=== PATIENT | female | born 1960 | race Caucasian/White ===

== ENCOUNTER 2021-07-06 08:12 | Inpatient (IN) | payer MEDICAID, SELFPAY ==
--- NOTE | 2021-07-06 | ECG_ITS ---
Test Reason : dyspnea Blood Pressure : / mmHG Vent. Rate : 158 BPM Atrial Rate : 000 BPM P-R Int : 000 ms QRS Dur : 084 ms QT Int : 288 ms P-R-T Axes : 000 097 075 degrees QTc Int : 467 ms Artifact in tracing Atrial fibrillation with rapid ventricular response Rightward axis cannot exclude old anterior infarct, but could be from body habitus and lead placement Abnormal ECG No previous ECGs available Referred By: Generic ED Physician Electronically Signed By:EDELMIRA SCOTT
--- NOTE | ~2021-07-06 | US_ITS ---
EXAMINATION: ULTRASOUND ARTERIAL DUPLEX LOWER EXTREMITY BILATERAL CLINICAL INFORMATION: Right foot cyanosis and decreased pulses. COMPARISON: None TECHNIQUE: Multiple 2-D grayscale and duplex Doppler ultrasound images of the arteries of the bilateral lower extremities were obtained. FINDINGS: Normal arterial waveforms with triphasic morphology without blunting is seen bilaterally. Peak systolic arterial velocities are as follows in centimeters per second: Common femoral: Right 62. Left 78. Profunda femoral: Right 39. Left 52. Proximal superficial femoral: Right 57. Left 78. Mid superficial femoral: Right 49. Left 56. Distal superficial femoral: Right 52. Left 75. Popliteal: Right 52. Left 1. Proximal posterior tibial: 79. Left 38. Mid posterior tibial: Right 80. Left 40. Distal posterior tibial: Right 69. Left 51. Peroneal: Right 59. Left 66. Scattered mild echogenic atherosclerotic plaque is seen bilaterally, more pronounced distally. Mild subcutaneous edema seen in the calves bilaterally. No popliteal cyst bilaterally. US/US arterial duplex LE BI IMPRESSION: No hemodynamically significant arterial stenosis bilaterally. Mildly asymmetric diminished arterial velocities in the left popliteal and posterior tibial arteries suggestive of mild stenosis in these arterial segments. This does not correlate with right-sided findings.
--- NOTE | ~2021-07-06 | US_ITS ---
EXAMINATION: US VENOUS ULTRASOUND WITH DOPPLER LOWER EXTREMITY, BILATERAL CLINICAL INFORMATION: Bilateral leg edema. COMPARISON: None TECHNIQUE: Ultrasound of the deep veins is performed from the hip to the calf with compression sonography and color and pulse Doppler assessment. Spectral analysis with color-flow imaging is performed. FINDINGS: RIGHT: There is normal venous compression and respiratory variation and augmented flow. The visualized common femoral vein, superficial femoral vein, profunda femoral vein, popliteal vein, and the trifurcation region shows no evidence of deep venous thrombosis. There is no significant popliteal fossa cyst. LEFT: There is normal venous compression and respiratory variation and augmented flow. The visualized common femoral vein, superficial femoral vein, profunda femoral vein, popliteal vein, and the trifurcation region shows no evidence of deep venous thrombosis. There is no significant popliteal fossa cyst. If the patient's symptoms persist, followup ultrasound in 5 days 7 days might be of value to exclude proximal propagation from a non-visualized calf vein. US/US venous duplex LE BI IMPRESSION: No DVT demonstrated in the bilateral lower extremity.
--- NOTE | ~2021-07-06 | CT_ITS ---
EXAMINATION: CT ANGIOGRAM OF THE CHEST WITH AND WITHOUT CONTRAST (CT PULMONARY ANGIOGRAM FOR PE) CLINICAL INFORMATION: Reason for Exam sob/le edema ? pe COMPARISON: None TECHNIQUE: Prior to contrast administration, noncontrast localization images were obtained. Subsequently, multidetector volumetric imaging was performed from the thoracic inlet to below the diaphragms following the administration of 65 mL Omnipaque 350 intravenous contrast. No contrast reaction reported Sagittal, coronal, and MIP oblique sagittal reformatted images were obtained on the CT workstation, uploaded to PACS, and reviewed. This CT examination was performed using dose optimization techniques as appropriate, variously including the following: *Automated exposure control *Adjustment of mA and/or kV according to patient size (this includes techniques or standardized protocols for targeted exams where dose is matched to indication/reason for exam; i.e. extremities or head) *Use of iterative reconstruction technique Total exam dose-length product 337 mGy-cm FINDINGS: QUALITY OF STUDY/CONTRAST BOLUS: Satisfactory. PULMONARY ARTERIES: No central or segmental pulmonary emboli. THORACIC AORTA: There is no evidence of aneurysm. LUNG: Lungs are expanded with mild compressive dependent lungs from pleural effusion. Mild platelike atelectatic changes right upper lobe and right middle lobe. PLEURA: There is moderate bilateral pleural effusions minimally larger on the right.. MEDIASTINUM: Normal heart size. No pericardial effusion. No hilar or mediastinal lymphadenopathy. No evidence of septal bowing or right heart strain. CHEST WALL/AXILLA: No axillary or internal mammary lymphadenopathy. OSSEOUS STRUCTURES: No lytic or sclerotic process seen. There is moderate ventral spondylosis and degenerative disc changes throughout dorsal spine. UPPER ABDOMEN: Visualized liver, spleen, pancreas and bilateral adrenal glands are unremarkable. No reflux of contrast into the hepatic veins to suggest elevated right heart pressures. CT/CT angio chest PE protocol IMPRESSION: No evidence of PE. There is no evidence of aneurysm. Moderate bilateral pleural effusions with dependent bibasilar atelectasis. Also visualized is right upper lobe and right middle lobe platelike atelectasis. VTE: negative
--- NOTE | ~2021-07-06 | XR_ITS ---
EXAMINATION: XR CHEST CLINICAL INFORMATION: Shortness of breath, lower extremity edema. COMPARISON: None TECHNIQUE: Frontal view of the chest was obtained. FINDINGS: There is mild prominence of the pulmonary vascular and cardiac silhouette. The mediastinal structures are unremarkable. Severe right glenohumeral degenerative joint changes are noted. XR/XR chest 1V IMPRESSION: Mild CHF.
[2021-07-06 08:13] VITALS: BP 182/130; PULSE 80; RESP 22; TEMP 36; O2SAT 97; BMI 30.6
[2021-07-06 09:18] LABS: MANUAL DIFF FLAG NO
[2021-07-06] MEDS: dilTIAZem HCL 50 MG/10 ML VIAL IVPUSH ×2 (09:22→09:30)
[2021-07-06 09:24] LABS: Basophils Percent Auto 0.4 % (0-2); Eosinophils Percent Auto 0.3 % (0-4); Hematocrit 38.2 % (37.0-47.0); Hemoglobin 11.6 g/dl (12.0-16.0); Imm Gran Abs Auto 0.03 X10*3/uL (0.00-0.03); Imm Gran Pct Auto 0.3 % (0.0-0.4); Lymphocytes Absolute Auto 2.2 X10*3/uL (1.2-4.9); Lymphocytes Percent Auto 21.3 % (20-40); Mean Corpuscular HGB Conc 30.4 g/dl (31.0-35.0); Mean Corpuscular Hemoglobin 26.9 pg (27.0-33.0); Mean Corpuscular Volume 88.4 fL (80.0-98.0); Mean Platelet Volume 9.7 fL (9.4-12.3); Monocytes Absolute Auto 0.7 X10*3/uL (0.1-1.2); Monocytes Percent Auto 6.9 % (2-11); Neutrophils Absolute Auto 7.4 x10*3/uL (2.0-8.3); Neutrophils Percent Auto 70.8 % (45-73); Platelet Count 458 X10*3/uL (160-400); Red Blood Count 4.32 X10*6/uL (4.20-5.50); Red Cell Distribution Width 16.3 % (11.0-16.0); White Blood Count 10.4 X10*3/uL (4.8-10.8)
[2021-07-06 09:29] LABS: INTERNATIONAL NORM RATIO 1.4 (0.9-1.1); Prothrombin Time 16.1 SEC (9.9-13.0)
[2021-07-06 09:31] LABS: Partial Thromboplastin Time 31.2 SEC (24.1-38.0)
[2021-07-06 09:55] LABS: B Type Natriuretic Peptide 676 pg/mL (<100); Troponin-I High Sensitivity 29.6 ng/L (<3.5-17.0)
[2021-07-06 09:58] LABS: Alanine Aminotransferase 28 U/L (0-31); Albumin Level 3.4 g/dL (3.5-5.0); Alkaline Phosphatase 98 U/L (39-117); Anion Gap 17 (12-20); Aspartate Amino Transferase 29 U/L (5-31); Bilirubin Total 0.9 mg/dL (0.0-1.0); Blood Urea Nitrogen 15 mg/dL (9-16); Calcium 9.3 mg/dL (8.4-10.2); Carbon Dioxide 21 mmol/L (22-29); Chloride 105 mmol/L (96-108); Creatinine Clr Calc Pharmacy 95.4; Estimated Glomerular Filt Rate > 60; Glucose Random 131 mg/dL (60-115); Magnesium 1.8 mg/dL (1.6-2.6); Potassium 4.9 mmol/L (3.3-5.1); Sodium 138 mmol/L (135-145); Total Protein 6.9 g/dL (6.5-8.0)
[2021-07-06] MEDS: dilTIAZem HCL 125 MG in 0.9 % Sodium Chloride 100 ML 10 MG IVCONT ×2 (10:38→23:54)
[2021-07-06 10:39] VITALS: BP 136/96; PULSE 145; RESP 22; O2SAT 94
--- NOTE | 2021-07-06 11:07 | ED.SOB ---
HPI - SOB/Dyspnea General Chief Complaint: Dyspnea Stated Complaint: sob Time Seen by Provider: 07/06/21 08:51 Source: patient Mode of arrival: ambulatory Limitations: no limitations History of Present Illness HPI Narrative: 60-year-old female with a past medical history of hypertension and bilateral hip replacement done years ago presenting to the ED with complaints of shortness of breath with intermittent dry cough and pain on inspiration for the past 2 weeks with associated lower extremity edema/swelling. And then this morning when she went to call her toenail she noticed that the told on her right foot were bluish in color. She reports that she recently traveled to [place] and drove for approximately 6-8 hours in a 48 hour span to visit her brother who is actively dying of a cancer although she is unsure what type of cancer. She denies any fevers, chills, dizziness, headaches, neck pain/stiffness, trouble swallowing or breathing, chest pain, palpitations, paresthesias, nausea/vomiting/diarrhea constipation, abdominal pain, back pain, black or bloody stools, calf tenderness, sick contacts or any other symptoms complaints or concerns at this time. She is unsure if she has had any weight gain. MD elicited complaint: shortness of breath, cough and pain with inspiration Onset (ago): week(s) (2) Context: recent travel Timing: constant and progressively worsening Severity: moderate Exacerbating factors: lying flat, exertion, movement, coughing, inspiration, talking and deep breaths Relieving factors: nothing Known history of: other (Hypertension) Associated symptoms: pain with inspiration, cough and lower extremity pain Treatment prior to arrival: none Related Data Home oxygen amount: none Home Medications Medication Instructions Recorded Confirmed No Known Home Meds 07/06/21 07/06/21 Allergies Allergy/AdvReac Type Severity Reaction Status Date / Time No Known Allergies Allergy Verified 07/06/21 08:24 Review of Systems Review of Systems: Constitutional : No Weight loss, No Fever, No Chills, No Night Sweats, No Fatigue, No Malaise ENT/Mouth : No Hearing loss, No Ear Pain, No Nasal Congestion, No Sinus Pain, No Hoarseness, No sore throat, No Rhinorrhea, No Swallowing Difficulty Eyes: No Eye Pain, No Swelling, No Redness, No Foreign Body, No Discharge, No Vision Changes Cardiovascular : + shortness of breath/dyspnea on exertion/orthopnea and lower extremity edema cough, no upper extremity edema, No Chest Pain, No Palpitations Respiratory : + Cough, + dyspnea, No Sputum, No Wheezing, No Smoke Exposure Gastrointestinal : No Nausea, No Vomiting, No Diarrhea, No Constipation, No abdominal Pain, No Hematochezia, No Melena Genitourinary : no irregular bleeding, No Dysuria, No Urinary Frequency, No Hematuria, No Urinary Incontinence, No Urgency, No Flank Pain, No Urinary Flow Changes, No Hesitancy Musculoskeletal : No joint pain, No Myalgias, No Joint Swelling Skin : No Skin Lesions, No rash Neuro : No Weakness, No Numbness, No Paresthesias, No Loss of Consciousness, No Dizziness, No Headache Psych : No Anxiety/Panic, No Depression, No SI/HI/AH/VH, No Social Issues, Heme/Lymph: No Bruising, No Bleeding,No Lymphadenopathy Endocrine : No Polyuria, No Polydipsia, No Temperature Intolerance Yes all other systems are reviewed and are negative [facility] Past Medical History Attestation statement: The following information was validated with the patient. Medical History CHF exacerbation HTN (hypertension) Family History Family History Brother Cancer Father CAD (coronary artery disease) Social History Social History Alcohol intake: current Patient Tobacco Use Status: Current everyday Tobacco user Use of substances other than those prescribed or required for medical reasons: No Advance Directives: Yes Advance Directives Information Provided: No Advance Directives on File: No Patient : No Physical Exam Vital Signs: Vital Signs: Last Vital Signs Temp 97.6 F 07/06/21 15:03 Pulse 87 07/06/21 15:03 Resp 20 07/06/21 15:03 BP 133/87 07/06/21 15:03 Pulse Ox 96 07/06/21 15:03 BMI result Body Mass Index 30.6 vital signs have been reviewed as normal and appeared to be correct. Blood pressure 182/130. Heart rate normal. Respiration rate 22. Temperature normal. Oxygen saturation normal. Appearance: Alert. Oriented X3. No acute distress. Head: Normal external exam. Normocephalic. Atraumatic. Eyes: PERRLA. EOMI. Conjunctiva and sclera normal. Eyelids normal. ENT: EAC normal. TM's Normal. Pharynx normal. Uvula midline. Moist mucous membranes. No lesions/ulcerations or masses noted on the tongue. Normal voice. No trismus noted. No drooling noted. No muffled voice noted. Neck: Normal inspection. Neck supple. FROM. No adenopathy. Thyroid Normal. No tracheal deviation noted. No crepitus is noted. No meningeal signs. No neck mass noted. No signs of trauma noted. CVS: Irregular rate and rhythm consistent with atrial fibrillation. No murmur/rales/gallops noted. Otherwise heart sounds are normal. Respiratory: No acute respiratory distress. Mild decreased breath sounds and patient reports pain on inspiration. No wheezes/rales/rhonchi noted. Chest nontender. No crepitus is noted. No signs of trauma noted. No accessory muscle usage noted or decreased air movement noted. Abdomen: Soft and nontender. Bowel sounds normal in all 4 quadrants. No distention noted. No organomegaly noted. No visible injury noted. Back: No CVA tenderness. Full range of motion noted. Nontender. No signs of trauma. Patient neuro intact bilaterally and distally on all 4 extremities. Patient's reflexes intact bilaterally and distally on all 4 extremities. No rashes/lesion/induration/fluctuance or signs of infection noted. Skin: Skin warm and dry. Normal skin color. Normal skin turgor. No rashes/lesions/lacerations noted. Extremities: + lower extremity edema bilaterally. No calf tenderness is noted bilaterally. Extremities exhibit normal range of motion and nontender. Neuro: Oriented X 3. No motor deficit. No sensory deficit. Reflexes normal. Normal steady gait. No focal neuro deficits noted. CN's II-XII intact bilaterally? Vascular: + radial pulses/+ 2 dorsalis pedis pulses to left lower extremity although decreased on the right lower extremity. +2 posterior tibial and peroneal bilaterally to left lower extremity/right lower extremity. Patient noted to have decreased capillary refill to the right foot 4th and 5th toes. Normal capillary refill toe all other toes. Right foot feels cold with cyanosis noted to the right foot at the 4th and 5th toes picture below. Normal capillary refill to left foot toes and no cyanosis noted to left foot toes Right foot Left Foot Course Course Course Narrative: 9am - 60-year-old female with a past medical history of hypertension and bilateral hip replacement done years ago presenting to the ED with complaints of shortness of breath with intermittent dry cough and pain on inspiration for the past 2 weeks with associated lower extremity edema/swelling. And then this morning when she went to call her toenail she noticed that the told on her right foot were bluish in color. She reports that she recently traveled to [place] and drove for approximately 6-8 hours in a 48 hour span to visit her brother who is actively dying of a cancer although she is unsure what type of cancer. Patient had an EKG in the waiting room which revealed rapid atrial fibrillation therefore she was brought to a room. Plan: Labs, chest x-ray, venous duplex ultrasound of bilateral lower extremity, arterial duplex ultrasound of bilateral lower extremity, CTA of chest for PE, COVID swab. Provide the patient 5 mg of diltiazem for her rapid atrial fibrillation and if this is not put her back into sinus rhythm will place her on a diltiazem drip. Will re-evaluate. Reevaluation(s) Reevaluation #1: - labs reviewed and patient is carbon dioxide 21. Random glucose 131. Troponin 29.6. BNP 676. Albumin 3.4. Otherwise all other labs are within normal limits - venous duplex ultrasound of bilateral lower extremity negative for DVT. - pending CTA, arterial duplex ultrasound of bilateral lower extremity an [place] swab Time: 11:25 Reevaluation #2: - chest x-ray revealed mild CHF. - patient's heart rate is still rapid in the 150s therefore I am consulting with Dr. Ibanez who recommended 5 mg of metoprolol and repeat in a few minutes as needed will attempt at this time. Time: 11:53 Reevaluation #3: - CTA negative for PE or only revealed pleural effusions with dependent bibasilar atelectasis and platelike atelectasis otherwise no other acute processes. - repeat troponin 36.6- delta. - patient has now received 10 mg of IV metoprolol and rate is in the 110's therefore at this time will admit to Dr. Huber for new onset of AFib/mild CHF patient understands agrees with this plan. Time: 12:25 MDM - SOB/Dyspnea Medical Records Attestation: I reviewed the patient's medical records. Lab Data Attestation: I reviewed the patient's lab results. Result diagrams: 07/06/21 09:13 07/06/21 09:12 Labs: Lab Results 07/06/21 07/06/21 07/06/21 Range/Units 09:12 09:12 09:13 WBC 10.4 (4.8-10.8) X10*3/uL RBC 4.32 (4.20-5.50) X10*6/uL Hgb 11.6 L (12.0-16.0) g/dl Hct 38.2 (37.0-47.0) % MCV 88.4 (80.0-98.0) fL MCH 26.9 L (27.0-33.0) pg MCHC 30.4 L (31.0-35.0) g/dl RDW 16.3 H (11.0-16.0) % Plt Count 458 H (160-400) X10*3/uL MPV 9.7 (9.4-12.3) fL Immature Gran % (Auto) 0.3 (0.0-0.4) % Neut % (Auto) 70.8 (45-73) % Lymph % (Auto) 21.3 (20-40) % [place] % (Auto) 6.9 (2-11) % Eos % (Auto) 0.3 (0-4) % Baso % (Auto) 0.4 (0-2) % Lymph # (Auto) 2.2 (1.2-4.9) X10*3/uL [place] # (Auto) 0.7 (0.1-1.2) X10*3/uL Eos # (Auto) 0.0 (0.0-0.4) X10*3/uL Baso # (Auto) 0.0 (0.0-0.2) X10*3/uL Abs Immat Gran (auto) 0.03 (0.00-0.03) X10*3/uL Absolute Neuts (auto) 7.4 (2.0-8.3) x10*3/uL Absolute Nucleated RBC 0.000 (0.0-0.012) X10*3/uL Nucleated RBC % (auto) 0.0 (0.0-0.2) /100WBC PT (9.9-13.0) SEC INR (0.9-1.1) APTT (24.1-38.0) SEC Sodium 138 (135-145) mmol/L Potassium 4.9 (3.3-5.1) mmol/L Chloride 105 (96-108) mmol/L Carbon Dioxide 21 L (22-29) mmol/L Anion Gap 17 (12-20) BUN 15 (9-16) mg/dL Creatinine 0.77 (0.5-1.4) mg/dL Estim Creat Clear Calc 95.4 Estimated GFR > 60 Random Glucose 131 H (60-115) mg/dL Calcium 9.3 (8.4-10.2) mg/dL Magnesium 1.8 (1.6-2.6) mg/dL Total Bilirubin 0.9 (0.0-1.0) mg/dL AST 29 (5-31) U/L ALT 28 (0-31) U/L Alkaline Phosphatase 98 (39-117) U/L Troponin I High Sens 29.6 H (<3.5-17.0) ng/L B-Natriuretic Peptide 676 H (<100) pg/mL Total Protein 6.9 (6.5-8.0) g/dL Albumin 3.4 L (3.5-5.0) g/dL COVID-19 (JAJA) (Negative) COVID-19 Clin Com 07/06/21 07/06/21 07/06/21 Range/Units 09:13 11:38 11:38 WBC (4.8-10.8) X10*3/uL RBC (4.20-5.50) X10*6/uL Hgb (12.0-16.0) g/dl Hct (37.0-47.0) % MCV (80.0-98.0) fL MCH (27.0-33.0) pg MCHC (31.0-35.0) g/dl RDW (11.0-16.0) % Plt Count (160-400) X10*3/uL MPV (9.4-12.3) fL Immature Gran % (Auto) (0.0-0.4) % Neut % (Auto) (45-73) % Lymph % (Auto) (20-40) % [place] % (Auto) (2-11) % Eos % (Auto) (0-4) % Baso % (Auto) (0-2) % Lymph # (Auto) (1.2-4.9) X10*3/uL [place] # (Auto) (0.1-1.2) X10*3/uL Eos # (Auto) (0.0-0.4) X10*3/uL Baso # (Auto) (0.0-0.2) X10*3/uL Abs Immat Gran (auto) (0.00-0.03) X10*3/uL Absolute Neuts (auto) (2.0-8.3) x10*3/uL Absolute Nucleated RBC (0.0-0.012) X10*3/uL Nucleated RBC % (auto) (0.0-0.2) /100WBC PT 16.1 H (9.9-13.0) SEC INR 1.4 H (0.9-1.1) APTT 31.2 (24.1-38.0) SEC Sodium (135-145) mmol/L Potassium (3.3-5.1) mmol/L Chloride (96-108) mmol/L Carbon Dioxide (22-29) mmol/L Anion Gap (12-20) BUN (9-16) mg/dL Creatinine (0.5-1.4) mg/dL Estim Creat Clear Calc Estimated GFR Random Glucose (60-115) mg/dL Calcium (8.4-10.2) mg/dL Magnesium (1.6-2.6) mg/dL Total Bilirubin (0.0-1.0) mg/dL AST (5-31) U/L ALT (0-31) U/L Alkaline Phosphatase (39-117) U/L Troponin I High Sens 36.6 H (<3.5-17.0) ng/L B-Natriuretic Peptide (<100) pg/mL Total Protein (6.5-8.0) g/dL Albumin (3.5-5.0) g/dL COVID-19 (JAJA) Negative (Negative) COVID-19 Clin Com See Note Imaging Data Venous duplex ultrasound of bilateral lower extremity: Attestation: I personally reviewed and interpreted this imaging study as follows: Radiologist's impression: FINDINGS: RIGHT: There is normal venous compression and respiratory variation and augmented flow. The visualized common femoral vein, superficial femoral vein, profunda femoral vein, popliteal vein, and the trifurcation region shows no evidence of deep venous thrombosis. ? There is no significant popliteal fossa cyst. LEFT: There is normal venous compression and respiratory variation and augmented flow. The visualized common femoral vein, superficial femoral vein, profunda femoral vein, popliteal vein, and the trifurcation region shows no evidence of deep venous thrombosis. ? There is no significant popliteal fossa cyst. If the patient's symptoms persist, followup ultrasound in 5 days 7 days might be of value to exclude proximal propagation from a non-visualized calf vein. US/US venous duplex LE BI IMPRESSION: No DVT demonstrated in the bilateral lower extremity. Arterial duplex ultrasound of bilateral lower extremity: Attestation: I personally reviewed and interpreted this imaging study as follows: Radiologist's impression: FINDINGS: Normal arterial waveforms with triphasic morphology without blunting is seen bilaterally. Peak systolic arterial velocities are as follows in centimeters per second: Common femoral: Right 62. Left 78. Profunda femoral: Right 39. Left 52. Proximal superficial femoral: Right 57. Left 78. Mid superficial femoral: Right 49. Left 56. Distal superficial femoral: Right 52. Left 75. Popliteal: Right 52. Left 1. Proximal posterior tibial: 79. Left 38. Mid posterior tibial: Right 80. Left 40. Distal posterior tibial: Right 69. Left 51. Peroneal: Right 59. Left 66. Scattered mild echogenic atherosclerotic plaque is seen bilaterally, more pronounced distally. Mild subcutaneous edema seen in the calves bilaterally. No popliteal cyst bilaterally. US/US arterial duplex LE BI IMPRESSION: No hemodynamically significant arterial stenosis bilaterally. Mildly asymmetric diminished arterial velocities in the left popliteal and posterior tibial arteries suggestive of mild stenosis in these arterial segments. This does not correlate with right-sided findings.? Chest x-ray: Attestation: I personally reviewed and interpreted this imaging study as follows: Radiologist's impression: FINDINGS: There is mild prominence of the pulmonary vascular and cardiac silhouette. The mediastinal structures are unremarkable. Severe right glenohumeral degenerative joint changes are noted. XR/XR chest 1V IMPRESSION: Mild CHF. CTA of chest for PE: Attestation: I personally reviewed and interpreted this imaging study as follows: Radiologist's impression: FINDINGS: QUALITY OF STUDY/CONTRAST BOLUS: Satisfactory. PULMONARY ARTERIES: No central or segmental pulmonary emboli.? THORACIC AORTA: There is no evidence of aneurysm. LUNG: Lungs are expanded with mild compressive dependent lungs from pleural effusion. Mild platelike atelectatic changes right upper lobe and right middle lobe. PLEURA: There is moderate bilateral pleural effusions minimally larger on the right.. MEDIASTINUM: Normal heart size.? No pericardial effusion.? No hilar or mediastinal lymphadenopathy.? No evidence of septal bowing or right heart strain. CHEST WALL/AXILLA: No axillary or internal mammary lymphadenopathy. OSSEOUS STRUCTURES: No lytic or sclerotic process seen. There is moderate ventral spondylosis and degenerative disc changes throughout dorsal spine.? UPPER ABDOMEN: Visualized liver, spleen, pancreas and bilateral adrenal glands are unremarkable.? No reflux of contrast into the hepatic veins to suggest elevated right heart pressures. CT/CT angio chest PE protocol IMPRESSION: No evidence of PE. ? There is no evidence of aneurysm. ? Moderate bilateral pleural effusions with dependent bibasilar atelectasis. Also visualized is right upper lobe and right middle lobe platelike atelectasis. ? VTE: negative ECG Data Attestation: I personally reviewed and interpreted this ECG as follows: ECG interpretation date: 07/06/21 ECG interpretation time: 08:23 Interpretation: Atrial fibrillation with rapid ventricular response with a right word access with ventricular rate of 158 no acute ischemic changes are noted. No prior EKGs in our system to compare to at this time. Critical Care Time Critical Care Time Critical Care Time: Yes Total Critical Care Time: 60 Attestation: I personally attest to this time spent taking care of the patient Discharge Plan Discharge Clinical Impression: New onset a-fib, Hypertension, Mild congestive heart failure, Bilateral edema of lower extremity, Bilateral pleural effusion Patient Disposition: Admitted As Inpatient
[2021-07-06] MEDS: iohexoL 350 MG/ML 100 ML INFUS..BTL 65 ML IV (11:29)
[2021-07-06 11:59] LABS: COVID-19 Test Negative (Negative)
[2021-07-06] MEDS: Metoprolol Tartrate 5 MG/5 ML VIAL IVPUSH ×2 (12:04→12:20)
[2021-07-06 12:12] LABS: Troponin-I High Sensitivity 36.6 ng/L (<3.5-17.0)
[2021-07-06 12:24] VITALS: BP 115/85; PULSE 102; RESP 22; O2SAT 95
--- NOTE | 2021-07-06 12:36 | PC.NURSE ---
pt continues to deny cp, hr more controlled at this time, diltiazem drip maxed at 15mg/hr, pt further medicated w ordered metoprolol. awaiting inpt bed assignment.
--- NOTE | 2021-07-06 13:17 | P.HPHOSP_ITS ---
History of Present Illness Date of Service: 07/06/21 Chief Complaint: shortness of breath 60F with no significant medical history, does not follow with physicians, Presented with 2 weeks of shortness of breath and lower extremity edema. Prior to this patient states she is in good health, about 2 weeks prior to presentation she started noticing worsening lower extremity edema and shortness of breath worse on exertion with positive orthopnea. Symptoms became gradually worse until night prior to presentation patient was unable to sleep due to shortness of breath. She denies any chest pains or palpitations. She denies fevers, chills. In ED patient found to be in atrial fibrillation with rapid ventricular response, also noted to have elevated BNP, CTA showed no PE but did show bilateral pleural effusions. Review of Systems Review of Systems: Constitutional: Denies fever, denies Chills Eyes: denies blurry vision ENT: denies sore throat CVS: denies chest pain Respiratory: dyspnea GI: no abdominal pain : denies dysuria MSK: denies neck pain Skin: denies rash Neuro: denies specific motor weakness Psych: denies suicidal ideation Endocrine: denies heat/cold intolerance Hematologic: denies easy bleeding Allergy: denies hives [facility] Medical History CHF exacerbation HTN (hypertension) Family History Brother Cancer Father CAD (coronary artery disease) Social History Alcohol intake: current Patient Tobacco Use Status: Current everyday Tobacco user Use of substances other than those prescribed or required for medical reasons: No Advance Directives: Yes Advance Directives Information Provided: No Advance Directives on File: No Patient : No Meds Allergies Allergy/AdvReac Type Severity Reaction Status Date / Time No Known Allergies Allergy Verified 07/06/21 08:24 Active Medications: Current Medications Diltiazem HCl 125 mg/ Sodium (Chloride) 125 mls @ 0 mls/hr IVCONT .Q0M [facility]; Protocol Last Titration: 07/06/21 11:47 Dose: 15 mg/hr, 15 mls/hr Documented by: Pharmacy Consult (Consult Rx Perform Med Rec) 1 each MISCELLANE ONCE PRN PRN Reason: Consult order Physical Exam Vital Signs and Narrative: Vital Signs: Last Vital Signs Temp 96.8 F 07/06/21 08:13 Pulse 102 H 07/06/21 12:24 Resp 22 H 07/06/21 12:24 BP 115/85 07/06/21 12:24 Pulse Ox 95 07/06/21 12:24 BMI result Body Mass Index 30.6 General: dyspneic HEENT: atraumatic Neck: normal to visual inspection CVS: S1, S2, Rapid irregular Resp: bilateral wheezes Chest: non tender GI: soft, non tender, non distended : no CVA tenderness Skin: no rashes Extremities: 3 + bialteral edema Neuro: Oriented X3, grossly intact Psych: cooperative Results Labs CBC and Chem 7: 07/06/21 09:13 07/06/21 09:12 Labs: Laboratory Results - last 24 hr 07/06/21 07/06/21 07/06/21 09:12 09:12 09:13 MCV 88.4 MCH 26.9 L MCHC 30.4 L RDW 16.3 H Plt Count 458 H MPV 9.7 Immature Gran % (Auto) 0.3 Neut % (Auto) 70.8 Lymph % (Auto) 21.3 [place] % (Auto) 6.9 Eos % (Auto) 0.3 Baso % (Auto) 0.4 Lymph # (Auto) 2.2 [place] # (Auto) 0.7 Eos # (Auto) 0.0 Baso # (Auto) 0.0 Abs Immat Gran (auto) 0.03 Absolute Neuts (auto) 7.4 Absolute Nucleated RBC 0.000 Nucleated RBC % (auto) 0.0 PT INR APTT Anion Gap 17 Estim Creat Clear Calc 95.4 Estimated GFR > 60 Random Glucose 131 H Calcium 9.3 Magnesium 1.8 Total Bilirubin 0.9 AST 29 ALT 28 Alkaline Phosphatase 98 Troponin I High Sens 29.6 H B-Natriuretic Peptide 676 H Total Protein 6.9 Albumin 3.4 L COVID-19 (JAJA) COVID-19 Clin Com 07/06/21 07/06/21 07/06/21 09:13 11:38 11:38 MCV MCH MCHC RDW Plt Count MPV Immature Gran % (Auto) Neut % (Auto) Lymph % (Auto) [place] % (Auto) Eos % (Auto) Baso % (Auto) Lymph # (Auto) [place] # (Auto) Eos # (Auto) Baso # (Auto) Abs Immat Gran (auto) Absolute Neuts (auto) Absolute Nucleated RBC Nucleated RBC % (auto) PT 16.1 H INR 1.4 H APTT 31.2 Anion Gap Estim Creat Clear Calc Estimated GFR Random Glucose Calcium Magnesium Total Bilirubin AST ALT Alkaline Phosphatase Troponin I High Sens 36.6 H B-Natriuretic Peptide Total Protein Albumin COVID-19 (JAJA) Negative COVID-19 Clin Com See Note Imaging Radiologist's Impressions: Impressions Duplex Scan Lower Extremity Artery 07/06/21 11:08 IMPRESSION: No hemodynamically significant arterial stenosis bilaterally. Mildly asymmetric diminished arterial velocities in the left popliteal and posterior tibial arteries suggestive of mild stenosis in these arterial segments. This does not correlate with right-sided findings. Venous Duplex 07/06/21 11:08 IMPRESSION: No DVT demonstrated in the bilateral lower extremity. Chest X-Ray 07/06/21 11:30 IMPRESSION: Mild CHF. Chest CTA 07/06/21 11:34 IMPRESSION: No evidence of PE. There is no evidence of aneurysm. Moderate bilateral pleural effusions with dependent bibasilar atelectasis. Also visualized is right upper lobe and right middle lobe platelike atelectasis. VTE: negative Assessment and Plan (1) CHF exacerbation: Status: Acute Plan 60F presented with sob, found to be in new onset afib, chf new onset afib diltiazem infusion, check echo, cardio eval chads appears to be 1, follow up with cardio regarding AC acute chf unspecified iv lasix, echo presumed COPD with acute decompensation prednisone, bronchodilators nicotine dependence nicoderm smoking cessation contious ETOH use about 1 pint of vodka per week, monitor for withdrawal symptoms reported history of HTN no longer on meds monitor dvt prophylaxis - lovenox full code Patient with new onset atrial fibrillation complicated by acute congestive hea rt failure, requiring continues diltiazem infusion and IV diuretics. Patient is at risk for decompensation, therefore, will likely require at least 2 midnights in the hospital. Quality Stroke Does the patient have a stroke diagnosis?: No VTE Prior VTE?: No VTE Risk Level:: Medical - moderate - high VTE Device Contraindication: Treatment Not Indicated VTE Drug Contraindication: N/A - Med Ordered
--- NOTE | 2021-07-06 13:34 | PHA.MEDREC ---
MED REC COMPLETE, PT ON NO MEDICATIONS Pharmacy Consult ? Medication Reconciliation Pharmacy has completed the medication reconciliation.
[2021-07-06] MEDS: Enoxaparin Sodium 40 MG/0.4 ML SYRINGE SUBCUT (14:19)
[2021-07-06] MEDS: Nicotine 21 MG PATCH.TD24 TRANSDERMA (14:19)
[2021-07-06] MEDS: predniSONE 20 MG TABLET 40 MG PO (14:19)
[2021-07-06] MEDS: Furosemide 20 MG/2 ML VIAL IVPUSH (14:20)
[2021-07-06 15:03] VITALS: BP 133/87; PULSE 87; RESP 20; TEMP 36.4; O2SAT 96
[2021-07-06] MEDS: Furosemide 40 MG/4 ML VIAL IVPUSH (18:14)
[2021-07-06 19:14] VITALS: BP 136/80; PULSE 78; RESP 20; TEMP 37; O2SAT 95
[2021-07-06] MEDS: Apixaban 5 MG TABLET PO (19:38)
[2021-07-07] VITALS (10 sets, daily range): BP systolic 114–135; BP diastolic 73–91; PULSE 90–134; RESP 17–21; TEMP 36.3–36.7; O2SAT 93–99
--- NOTE | 2021-07-07 00:09 | PC.NURSE ---
Received care from MONO Bearden at 11:30pm. pt a&o, denies any sob or chest pain at this time. pt reports feeling better at this time. pt on bedside monitor. Heart rate is in 100-130 at this time. Will continue to monitor.
--- NOTE | 2021-07-07 03:34 | PC.NURSE ---
pt is a&o, no sob or chest pain. pt ambulates to bedside commode with no distress. Will continue monitor.
--- NOTE | 2021-07-07 03:42 | PC.NURSE ---
Report given to receiving floor.
[2021-07-07] MEDS: Furosemide 40 MG/4 ML VIAL IVPUSH ×2 (05:29→18:20)
[2021-07-07 07:40] LABS: Hematocrit 37.8 % (37.0-47.0); Hemoglobin 11.7 g/dl (12.0-16.0); Mean Corpuscular Hemoglobin 27.3 pg (27.0-33.0); Mean Corpuscular Volume 88.1 fL (80.0-98.0); Mean Platelet Volume 9.6 fL (9.4-12.3); Platelet Count 430 X10*3/uL (160-400); Red Blood Count 4.29 X10*6/uL (4.20-5.50); Red Cell Distribution Width 16.5 % (11.0-16.0); White Blood Count 9.9 X10*3/uL (4.8-10.8)
[2021-07-07 07:55] LABS: Anion Gap 13 (12-20); Blood Urea Nitrogen 14 mg/dL (9-16); Calcium 9.3 mg/dL (8.4-10.2); Carbon Dioxide 29 mmol/L (22-29); Chloride 102 mmol/L (96-108); Creatinine Clr Calc Pharmacy 84.4; Estimated Glomerular Filt Rate > 60; Glucose Fasting 112 mg/dL (60-99); Magnesium 1.7 mg/dL (1.6-2.6); Potassium 4.3 mmol/L (3.3-5.1); Sodium 140 mmol/L (135-145)
--- NOTE | 2021-07-07 09:00 | CA_ITS ---
Transthoracic Echocardiogram Patient (Last, First, Middle): Lo Dennison, Gender: Female Date of : 1960 Age: 60 Procedure Date: 07/07/2021 Procedure Type: Transthoracic Echocardiogram Location: [facility] [place] Height: 177.8 cm Weight: 96.62 kg BSA: 2.14 m2 Heart Rate: bpm BP: 135 / 91 mmHg [employer] Manager: YR/TO Referring MD: Edwar Mancera MD Symptoms: chf, afib Study Quality: Good Conclusions: - Normal left ventricular cavity size. There is normal left ventricular wall thickness. The left ventricular systolic function is moderately decreased. The visually estimated ejection fraction is between 30-35%. - Mildly increased right ventricular cavity size. There is mild to moderately decreased right ventricular systolic function. - There is mild aortic valve regurgitation. - There is moderate to severe mitral valve regurgitation. - There is moderate to severe tricuspid valve regurgitation. Moderately elevated right atrial pressure. Findings Left Ventricle Normal left ventricular cavity size. There is normal left ventricular wall thickness. The left ventricular systolic function is moderately decreased. The visually estimated ejection fraction is between 30-35%. There is moderate global hypokinesis. Diastolic function is indeterminate on the basis of available data. Right Ventricle Mildly increased right ventricular cavity size. There is mild to moderately decreased right ventricular systolic function. Atria Moderate biatrial enlargement. Aortic Valve There is a normal trileaflet aortic valve. There is no aortic valve stenosis. There is mild aortic valve regurgitation. Mitral Valve There is moderate to severe mitral valve regurgitation. There is no mitral valve stenosis. There is mild apical tethering of the mitral valve leaflets with central MR. Pulmonic Valve Normal pulmonic valve structure and function. There is trace pulmonic valve regurgitation. Tricuspid Valve Normal tricuspid valve structure. There is moderate to severe tricuspid valve regurgitation. Moderately elevated right atrial pressure. Mild pulmonary hypertension is present. Great Vessels All visible segments of the aorta are normal in size. The visualized portions of the pulmonary artery and branches are normal. Venous The inferior vena cava is dilated and collapses greater than 50% with inspiration. Pericardium/Pleural There is no evidence of pericardial effusion. Prior Study Comparison No prior study available for comparison. Measurements 2D Linear Measurements IVSd: 0.85 0.6-0.9/0.6-1.0 cm LVIDd: 5.66 3.9-5.3/4.2-5.9 cm LVIDd Index: 2.64 2.4-3.2/2.2-3.1 cm/m2 LVIDs: 4.36 2.0-3.6 cm LVPWd: 0.99 0.7-1.1 cm LA Diam: 4.90 2.7-3.8/3.0-4.0 cm LAIDs Index: 2.29 1.5-2.3 cm/m2 LV Mass: 250.35 67-162/88-224 g LV Mass Index: 116.99 43-95/49-115 g/m2 LVOT Diam: 2.10 3.0+(-)1.3 cm 2D Systolic Function EF 4C: 38.20 >55% EF 2C: 45.40 >55% EF BiP: 43.10 >55% Mitral Valve MR Vol - PW Dopp: 31.08 MR VTI: 1.48 MR ERO: 21.00 MR Alias Keshav: 0.37 MR RAD: 0.70 Aortic Valve AoV Pk Keshav: 1.72 AoV Mn Keshav: 1.04 AoV VTI: 0.22 AoV Pk Grad: 12.00 Aov Mn Grad: 5.00 MARILU Cont.VTI: 2.29 LVOT LVOT Pk Keshav: 1.03 LVOT Mn Keshav: 0.67 LVOT VTI: 0.14 LVOT Pk Grad: 4.00 LVOT Mn Grad: 2.00 LVOT Diam: 2.10 LVOT Area: 3.46 Right Ventricle TAPSE (mm): 13.00 TVS' Keshav: 11.60 Tricuspid Valve TR Pk Keshav: 2.95 TR Pk Grad: 35.00 RA Press: 8.00 RVSP: 43.00 Great Vessels Aorta Sinus of Valsalva: 3.23 2.0-3.[address] Ridge: 2.72 1.7-3.4 cm Ao Asc: 3.50 2.1-3.4 cm Ao Arch: 3.20 Updated in Other Vendor System with Status of Final Travis Plummer MD electronically signed on 07/08/2021 3:32:10 PM with status of Final
[2021-07-07] MEDS: Apixaban 5 MG TABLET PO ×2 (10:04→20:25)
[2021-07-07] MEDS: predniSONE 20 MG TABLET 40 MG PO (10:04)
[2021-07-07] MEDS: Nicotine 21 MG PATCH.TD24 TRANSDERMA (10:05)
--- NOTE | 2021-07-07 11:44 | P.PNIM_ITS ---
Subjective Subjective Date of Service: 07/07/21 Interval History: cc: sob interval history: much improved today Cardiovascular Cardiovascular: Reports no additional cardiovascular complaints Gastrointestinal Gastrointestinal: Reports no additional gastrointestinal complaints Physical Exam Vital Signs: Vital Signs: Last Vital Signs Temp 97.6 F 07/07/21 11:23 Pulse 105 H 07/07/21 11:23 Resp 18 07/07/21 11:23 BP 123/89 07/07/21 11:23 Pulse Ox 95 07/07/21 11:23 BMI result Body Mass Index 30.6 General: AO X 3, no acute distress Resp: minimal basilar bilateral, no accessory muscles used CVS: S1,S2, irregular, 2+ bilateral edema GI: soft, non tender, non distended Neuro: motor grossly intact, alert Psych: appropriate affect, appropriate insight Objective Data Active Medications Acetaminophen (Acetaminophen 325 Mg Tablet) 650 mg PO Q6H PRN PRN Reason: Pain, Mild (Pain Scale 1-3) Albuterol/Ipratropium (Albuterol/Iprat 2.5/0.5mg 3 Ml Ampul.Neb) 3 ml INHALE Q4H PRN PRN Reason: sob Apixaban (Apixaban 5 Mg Tablet) 5 mg PO BID [facility] Last Admin: 07/07/21 10:04 Dose: 5 mg Documented by: FAYE Furosemide (Furosemide 40 Mg/4 Ml Vial) 40 mg IVPUSH Q12H [facility]; Protocol Last Admin: 07/07/21 05:29 Dose: 40 mg Documented by: SANTOS Diltiazem HCl 125 mg/ Sodium (Chloride) 125 mls @ 0 mls/hr IVCONT .Q0M [facility]; Protocol Last Titration: 07/07/21 07:38 Dose: 5 mg/hr, 5 mls/hr Documented by: FAYE Nicotine (Nicotine 21 Mg Patch.Td24) 21 mg TRANSDERMA DAILY [facility] Last Admin: 07/07/21 10:05 Dose: 21 mg Documented by: FAYE Pharmacy Consult (Consult Rx Perform Med Rec) 1 each MISCELLANE ONCE PRN PRN Reason: Consult order Prednisone (Prednisone 20 Mg Tablet) 40 mg PO DAILY [facility] Last Admin: 07/07/21 10:04 Dose: 40 mg Documented by: FAYE Sodium Chloride (0.9 % Sodium Chloride Flush 3 Ml Syringe) 3 ml IVFLUSH QSHIFT [facility] Last Admin: 07/07/21 10:04 Dose: Not Given Documented by: FAYE Non-Admin Reason: IV Running Labs CBC & Chem 7: 07/07/21 07:26 07/07/21 07:26 Labs: Laboratory Results - last 24 hr 07/06/21 07/06/21 07/07/21 11:38 11:38 07:26 MCV 88.1 MCH 27.3 MCHC 31.0 RDW 16.5 H Plt Count 430 H MPV 9.6 Absolute Nucleated RBC 0.000 Nucleated RBC % (auto) 0.0 Anion Gap Estim Creat Clear Calc Estimated GFR Fasting Glucose Calcium Magnesium Troponin I High Sens 36.6 H COVID-19 (JAJA) Negative COVID-19 Clin Com See Note 07/07/21 07:26 MCV MCH MCHC RDW Plt Count MPV Absolute Nucleated RBC Nucleated RBC % (auto) Anion Gap 13 Estim Creat Clear Calc 84.4 Estimated GFR > 60 Fasting Glucose 112 H Calcium 9.3 Magnesium 1.7 Troponin I High Sens COVID-19 (JAJA) COVID-19 Clin Com Assessment and Plan (1) CHF exacerbation: Status: Acute Plan 60F presented with sob, found to be in new onset afib, chf new onset afib continue diltiazem infusion, check echo, cardio eval started eliquis acute chf unspecified iv lasix, echo presumed COPD with acute decompensation prednisone, bronchodilators nicotine dependence nicoderm smoking cessation contious ETOH use about 1 pint of vodka per week, monitor for withdrawal symptoms reported history of HTN no longer on meds monitor mild normocytic anemia with elevated RDW check iron studies dvt prophylaxis - lovenox full code reason for continued hospitalization: still in afib with rvr Quality Stroke Does the patient have a stroke diagnosis?: No VTE Prior VTE?: No VTE Risk Level:: Medical - moderate - high VTE Device Contraindication: Treatment Not Indicated VTE Drug Contraindication: N/A - Med Ordered
--- NOTE | 2021-07-07 12:06 | MHC.CM.PN ---
met with pt who lives with her dgter pt is independent cm intervention is not indicated
--- NOTE | 2021-07-07 13:34 | PM.CNCAR ---
History of Present Illness History of Present Illness Date of Service: 07/07/21 Requesting physician: Edwar Mancera Chief complaint: CHF, Afib Narrative: 60-year-old female who is presenting with 2 weeks history of lower extremity edema and shortness of breath. She was noted to be in AFib with RVR. She said she was experiencing some palpitations off and on for long time. Over the last 2 weeks she has started noticing lower extremity edema and progressive shortness of breath. With these symptoms she presented and was noted to be in AFib with RVR and congestive heart failure. She was admitted and started on Cardizem drip. Her heart rate was improving on Cardizem and she was given diuretics. Denying any chest pain or other cardiovascular issues in the past. She drinks 3 times a week up to 3 drinks of vodka and has been doing that from age 16. [facility] Past Medical History Medical History CHF exacerbation HTN (hypertension) Family History Family History Brother Cancer Father CAD (coronary artery disease) Social History Social History Household Members: Children [facility] Do you presently have visiting nurse or other home services: No Unable to assess alcohol history related to: Unknown Alcohol intake: current Patient Tobacco Use Status: Current everyday Tobacco user Smoked in Last 30 Days: Yes Patient Interested in Nicotine Replacement: Yes Patient Given Instructions on How to Stop Smoking: Yes Date Education Initiated: 07/06/21 Use of substances other than those prescribed or required for medical reasons: No Have you been hit, kicked, punched, or otherwise hurt by someone within the past year? If so, by whom?: No Do you feel safe in your current relationship?: No Current Relationship Is there a partner from a previous relationship who is making you feel unsafe now?: No Are you made to feel afraid or neglected: No Advance Directives: Yes Advance Directives Information Provided: No Advance Directives on File: No Advance Directives Date on File: 07/07/21 Do you have thoughts of harming others: None Do you have a plan to hurt others: No Plan Recently lost weight without trying: No Eating poorly because of decreased appetite: No Nutrition Risks: No Nutritional Risk Patient : No service: No Meds Allergies Allergy/AdvReac Type Severity Reaction Status Date / Time No Known Allergies Allergy Verified 07/06/21 08:24 Active Medications: Current Medications Acetaminophen (Acetaminophen 325 Mg Tablet) 650 mg PO Q6H PRN PRN Reason: Pain, Mild (Pain Scale 1-3) Albuterol/Ipratropium (Albuterol/Iprat 2.5/0.5mg 3 Ml Ampul.Neb) 3 ml INHALE Q4H PRN PRN Reason: sob Apixaban (Apixaban 5 Mg Tablet) 5 mg PO BID [facility] Last Admin: 07/07/21 10:04 Dose: 5 mg Documented by: Digoxin (Digoxin 0.25 Mg Tablet) 0.5 mg PO ONCE ONE Stop: 07/07/21 13:33 Furosemide (Furosemide 40 Mg/4 Ml Vial) 40 mg IVPUSH Q12H [facility]; Protocol Last Admin: 07/07/21 05:29 Dose: 40 mg Documented by: Metoprolol Tartrate (Metoprolol Tartrate 25 Mg Tablet) 25 mg PO TID [facility]; Protocol Nicotine (Nicotine 21 Mg Patch.Td24) 21 mg TRANSDERMA DAILY [facility] Last Admin: 07/07/21 10:05 Dose: 21 mg Documented by: Pharmacy Consult (Consult Rx Perform Med Rec) 1 each MISCELLANE ONCE PRN PRN Reason: Consult order Prednisone (Prednisone 20 Mg Tablet) 40 mg PO DAILY [facility] Last Admin: 07/07/21 10:04 Dose: 40 mg Documented by: Sodium Chloride (0.9 % Sodium Chloride Flush 3 Ml Syringe) 3 ml IVFLUSH QSHIFT [facility] Last Admin: 07/07/21 10:04 Dose: Not Given Documented by: Home Medications Medication Instructions Recorded Confirmed Last Taken Type No Known Home Meds 07/06/21 07/06/21 Unknown History Physical Exam Vital Signs: Vital Signs: Last Vital Signs Temp 97.6 F 07/07/21 11:23 Pulse 105 H 07/07/21 11:23 Resp 18 07/07/21 11:23 BP 123/89 07/07/21 11:23 Pulse Ox 95 07/07/21 11:23 BMI result Body Mass Index 30.6 GENERAL APPEARANCE: in no acute distress, pleasant. NECK: no carotid bruit, JVD to angle of jaw. SKIN: no suspicious lesions, warm and dry. HEART: Holosystolic murmur at the apex from mitral regurgitation, irregularly irregular rhythm. LUNGS: clear to auscultation bilaterally. ABDOMEN: soft, nontender. EXTREMITIES: 1 to 2+ edema edema. PERIPHERAL PULSES: equal. NEUROLOGIC: No gross deficits, AAO X 3 Objective Labs and Meds Result diagrams: 07/07/21 07:26 07/07/21 07:26 Lab results: Laboratory Results - last 24 hr 07/07/21 07/07/21 07:26 07:26 WBC 9.9 RBC 4.29 Hgb 11.7 L Hct 37.8 MCV 88.1 MCH 27.3 MCHC 31.0 RDW 16.5 H Plt Count 430 H MPV 9.6 Absolute Nucleated RBC 0.000 Nucleated RBC % (auto) 0.0 Sodium 140 Potassium 4.3 Chloride 102 Carbon Dioxide 29 Anion Gap 13 BUN 14 Creatinine 0.87 Estim Creat Clear Calc 84.4 Estimated GFR > 60 Fasting Glucose 112 H Calcium 9.3 Magnesium 1.7 Assessment and Plan (1) New onset a-fib: Status: Acute (2) HTN (hypertension): Status: Acute (3) CHF exacerbation: Status: Acute Plan Pleasant 60-year-old female presenting for de Yeny congestive heart failure. She also is noted to be in AFib with RVR. Clinically volume overloaded. Agree with IV diuretics with close monitoring of electrolytes. I think Cardizem is not the best drug to use in her. Please discontinue the Cardizem. Starting her on metoprolol 25 mg 3 times a day along with digoxin load of 0.5 mg. She can have another dose of digoxin in 6 hours of 0.25 mg. Please start her on digoxin 0.125 mg every 48 hours. Will check echocardiogram to assess left ventricular function. I suspect that she has underlying cardiomyopathy. Thank you for allowing me to participate in the care of your patient. Please feel free to contact me if you have any questions. Procedures Date of Service Date of Service: 07/07/21
[2021-07-07] MEDS: Metoprolol Tartrate 25 MG TABLET PO ×2 (14:08→20:25)
[2021-07-07] MEDS: Digoxin 0.25 MG TABLET 0.5 MG PO (14:08)
[2021-07-07] MEDS: 0.9 % Sodium Chloride Flush 3 ML SYRINGE IVFLUSH ×2 (14:08→20:27)
[2021-07-08] VITALS (7 sets, daily range): BP systolic 110–123; BP diastolic 67–92; PULSE 86–124; RESP 18–20; TEMP 36.5–36.8; O2SAT 92–99
[2021-07-08] MEDS: Furosemide 40 MG/4 ML VIAL IVPUSH ×2 (06:25→19:04)
[2021-07-08 06:38] LABS: Hematocrit 39.8 % (37.0-47.0); Hemoglobin 12.2 g/dl (12.0-16.0); Mean Corpuscular HGB Conc 30.7 g/dl (31.0-35.0); Mean Corpuscular Hemoglobin 26.8 pg (27.0-33.0); Mean Corpuscular Volume 87.5 fL (80.0-98.0); Mean Platelet Volume 9.5 fL (9.4-12.3); Platelet Count 461 X10*3/uL (160-400); Red Blood Count 4.55 X10*6/uL (4.20-5.50); Red Cell Distribution Width 16.3 % (11.0-16.0); White Blood Count 13.9 X10*3/uL (4.8-10.8)
[2021-07-08 06:58] LABS: Anion Gap 13 (12-20); Blood Urea Nitrogen 18 mg/dL (9-16); Calcium 9.4 mg/dL (8.4-10.2); Carbon Dioxide 29 mmol/L (22-29); Chloride 100 mmol/L (96-108); Creatinine Clr Calc Pharmacy 86.4; Estimated Glomerular Filt Rate > 60; Glucose Fasting 92 mg/dL (60-99); Iron 22 mcg/dL (30-160); Percent Iron Saturation 4 % (15-50); Potassium 3.7 mmol/L (3.3-5.1); Sodium 138 mmol/L (135-145); Total Iron Binding Capacity 503 mcg/dL (228-428); Unsaturated Iron Binding 481 ug/dL
[2021-07-08] MEDS: Nicotine 21 MG PATCH.TD24 TRANSDERMA (07:54)
[2021-07-08] MEDS: predniSONE 20 MG TABLET 40 MG PO (07:54)
[2021-07-08] MEDS: Apixaban 5 MG TABLET PO ×2 (07:54→21:20)
[2021-07-08] MEDS: 0.9 % Sodium Chloride Flush 3 ML SYRINGE IVFLUSH ×3 (07:55→23:52)
[2021-07-08] MEDS: Metoprolol Tartrate 25 MG TABLET PO ×3 (07:55→21:20)
[2021-07-08] MEDS: Digoxin 0.25 MG TABLET PO (09:18)
--- NOTE | 2021-07-08 10:25 | P.PNIM_ITS ---
Subjective Subjective Date of Service: 07/08/21 Interval History: cc: sob interval history: sob improved, le edema improving, restless Cardiovascular Cardiovascular: Reports no additional cardiovascular complaints Respiratory Respiratory: Reports no additional respiratory complaints Physical Exam Vital Signs: Vital Signs: Last Vital Signs Temp 97.9 F 07/08/21 07:51 Pulse 116 H 07/08/21 07:51 Resp 20 07/08/21 07:51 BP 123/92 H 07/08/21 07:51 Pulse Ox 99 07/08/21 07:51 BMI result Body Mass Index 30.6 General: AO X 3, resteless Resp: CTA bilateral, no accessory muscles used CVS: S1,S2,Rapid irregular, improving edema GI: soft, non tender, non distended Neuro: motor grossly intact, alert Psych: appropriate affect, appropriate insight Objective Data Active Medications Acetaminophen (Acetaminophen 325 Mg Tablet) 650 mg PO Q6H PRN PRN Reason: Pain, Mild (Pain Scale 1-3) Albuterol/Ipratropium (Albuterol/Iprat 2.5/0.5mg 3 Ml Ampul.Neb) 3 ml INHALE Q4H PRN PRN Reason: sob Apixaban (Apixaban 5 Mg Tablet) 5 mg PO BID [facility] Last Admin: 07/08/21 07:54 Dose: 5 mg Documented by: COLT Digoxin (Digoxin 0.125 Mg Tablet) 0.125 mg PO Q2D [facility] Furosemide (Furosemide 40 Mg/4 Ml Vial) 40 mg IVPUSH Q12H [facility]; Protocol Last Admin: 07/08/21 06:25 Dose: 40 mg Documented by: MARICEL Metoprolol Tartrate (Metoprolol Tartrate 25 Mg Tablet) 25 mg PO TID [facility]; Protocol Last Admin: 07/08/21 07:55 Dose: 25 mg Documented by: COLT Nicotine (Nicotine 21 Mg Patch.Td24) 21 mg TRANSDERMA DAILY [facility] Last Admin: 07/08/21 07:54 Dose: 21 mg Documented by: COLT Pharmacy Consult (Consult Rx Perform Med Rec) 1 each MISCELLANE ONCE PRN PRN Reason: Consult order Pharmacy Consult (Consult Rx Etoh Phenob Po Dose) 1 each MISCELLANE ONCE PRN; Protocol PRN Reason: Consult order Phenobarbital 100 mg/ (Phenobarbital 30 mg) 130 mg PO Q3H [facility] Stop: 07/08/21 16:01 Phenobarbital (Phenobarbital 15 Mg Tablet) 45 mg PO BID [facility] Stop: 07/10/21 09:01 Phenobarbital (Phenobarbital 15 Mg Tablet) 15 mg PO BID [facility] Stop: 07/12/21 09:01 Phenobarbital (Phenobarbital 15 Mg Tablet) 15 mg PO DAILY [facility] Stop: 07/14/21 09:01 Prednisone (Prednisone 20 Mg Tablet) 40 mg PO DAILY [facility] Last Admin: 07/08/21 07:54 Dose: 40 mg Documented by: COLT Sodium Chloride (0.9 % Sodium Chloride Flush 3 Ml Syringe) 3 ml IVFLUSH QSHIFT [facility] Last Admin: 07/08/21 07:55 Dose: 3 ml Documented by: COLT Labs CBC & Chem 7: 07/08/21 06:29 07/08/21 06:30 Labs: Laboratory Results - last 24 hr 07/08/21 07/08/21 06:29 06:30 MCV 87.5 MCH 26.8 L MCHC 30.7 L RDW 16.3 H Plt Count 461 H MPV 9.5 Absolute Nucleated RBC 0.000 Nucleated RBC % (auto) 0.0 Anion Gap 13 Estim Creat Clear Calc 86.4 Estimated GFR > 60 Fasting Glucose 92 Calcium 9.4 Iron 22 L TIBC 503 H % Saturation 4 L Unsat Iron Binding 481 Assessment and Plan (1) CHF exacerbation: Status: Acute Plan 60F presented with sob, found to be in new onset afib, chf new onset afib continue metoprolol, dig, check echo, cardio following started eliquis acute chf unspecified iv lasix, echo presumed COPD with acute decompensation prednisone, bronchodilators nicotine dependence nicoderm smoking cessation alcohol dependence with withdrawal will start phenobarb reported history of HTN no longer on meds monitor chronic iron defeciency anemia will give iv iron dvt prophylaxis - lovenox full code reason for continued hospitalization: still in afib with rvr, diuresisng, actively withrdawing Quality Stroke Does the patient have a stroke diagnosis?: No VTE Prior VTE?: No VTE Risk Level:: Medical - moderate - high VTE Device Contraindication: Treatment Not Indicated VTE Drug Contraindication: N/A - Med Ordered
[2021-07-08] MEDS: Sodium Ferric Gluconat/Sucrose 125 MG in 0.9 % Sodium Chloride 100 ML 100 MG IV (11:12)
[2021-07-08] MEDS: PHENobarbitaL 100 MG, PHENobarbitaL 60 MG 160 MG PO (11:12)
--- NOTE | 2021-07-08 14:12 | PM.PNCARD ---
Subjective Subjective Date of Service: 07/08/21 Interval history: She is seeing her breathing is improving. In AFib with relatively better heart rate control. ECHO has shown biventricular dysfunction with moderate LV dysfunction and [id number] RV dysfunction. There was moderate to severe mitral valve regurgitation. There is moderate to severe tricuspid valve regurgitation Physical Exam Vital Signs: Last Vital Signs Temp 97.9 F 07/08/21 11:34 Pulse 112 H 07/08/21 14:01 Resp 20 07/08/21 11:34 BP 116/80 07/08/21 14:01 Pulse Ox 94 07/08/21 11:34 BMI result Body Mass Index 30.6 GENERAL APPEARANCE: in no acute distress, pleasant. NECK: no carotid bruit, mi jugular venous distention. SKIN: no suspicious lesions, warm and dry. HEART: Systolic murmur at the apex. Irregularly irregular rhythm. LUNGS: clear to auscultation bilaterally. ABDOMEN: soft, nontender. EXTREMITIES: no edema. PERIPHERAL PULSES: equal. NEUROLOGIC: No gross deficits, AAO X 3 Objective Labs and Meds Result diagrams: 07/08/21 06:29 07/08/21 06:30 Lab results: Laboratory Results - last 24 hr 07/08/21 07/08/21 06:29 06:30 WBC 13.9 H RBC 4.55 Hgb 12.2 Hct 39.8 MCV 87.5 MCH 26.8 L MCHC 30.7 L RDW 16.3 H Plt Count 461 H MPV 9.5 Absolute Nucleated RBC 0.000 Nucleated RBC % (auto) 0.0 Sodium 138 Potassium 3.7 Chloride 100 Carbon Dioxide 29 Anion Gap 13 BUN 18 H Creatinine 0.85 Estim Creat Clear Calc 86.4 Estimated GFR > 60 Fasting Glucose 92 Calcium 9.4 Iron 22 L TIBC 503 H % Saturation 4 L Unsat Iron Binding 481 Progress Note: A&P Assessment and plan (1) New onset a-fib: Status: Acute (2) HTN (hypertension): Status: Acute (3) CHF exacerbation: Status: Acute Plan Pleasant 60-year-old female who is presenting with new onset congestive heart failure. Echocardiography showing biventricular dysfunction. She has been drinking alcohol for long time. She has atrial fibrillation and this can be tachycardia induced cardiomyopathy also. Adding Entresto. Overall volume status is improving I think she can be changed to oral diuretics tomorrow. Keep her NPO after midnight and we would try to do a JOSEFINA cardioversion tomorrow. If she has successfully cardioverted to normal sinus rhythm then I would stop the digoxin her put her on amiodarone and will see how she response to rhythm control strategy going forward. I have advised her to stop drinking alcohol. Monitor electrolytes closely. Thank you for allowing me to participate in the care of your patient. Please feel free to contact me if you have any questions. Time Spent With Patient Time: Total time spent is greater than 50% in coordination of care (as documented) at patient's floor/unit and/or counseling patient: Progress Note: Quality Stroke Does the patient have a stroke diagnosis?: No Procedures Date of Service Date of Service: 07/08/21
[2021-07-08] MEDS: PHENobarbitaL 15 MG TABLET 45 MG PO (21:20)
[2021-07-08] MEDS: Sacubitril/Valsartan 24/26 1 TAB TABLET PO (21:20)
[2021-07-09] VITALS (12 sets, daily range): BP systolic 96–147; BP diastolic 61–88; PULSE 62–129; RESP 16–20; TEMP 8.5–47.3; O2SAT 92–98
[2021-07-09] MEDS: Furosemide 40 MG/4 ML VIAL IVPUSH (06:23)
[2021-07-09 07:16] LABS: Hematocrit 44.9 % (37.0-47.0); Hemoglobin 13.8 g/dl (12.0-16.0); Mean Corpuscular HGB Conc 30.7 g/dl (31.0-35.0); Mean Corpuscular Hemoglobin 26.8 pg (27.0-33.0); Mean Corpuscular Volume 87.4 fL (80.0-98.0); Mean Platelet Volume 9.9 fL (9.4-12.3); Platelet Count 525 X10*3/uL (160-400); Red Blood Count 5.14 X10*6/uL (4.20-5.50); Red Cell Distribution Width 16.2 % (11.0-16.0); White Blood Count 14.4 X10*3/uL (4.8-10.8)
[2021-07-09 07:29] LABS: Anion Gap 12 (12-20); Blood Urea Nitrogen 16 mg/dL (9-16); Calcium 9.3 mg/dL (8.4-10.2); Carbon Dioxide 33 mmol/L (22-29); Chloride 99 mmol/L (96-108); Creatinine Clr Calc Pharmacy 86.4; Estimated Glomerular Filt Rate > 60; Glucose Fasting 75 mg/dL (60-99); Potassium 4.2 mmol/L (3.3-5.1); Sodium 140 mmol/L (135-145)
[2021-07-09] MEDS: PHENobarbitaL 15 MG TABLET 45 MG PO (08:58)
[2021-07-09] MEDS: Sacubitril/Valsartan 24/26 1 TAB TABLET PO ×2 (09:00→20:09)
[2021-07-09] MEDS: predniSONE 20 MG TABLET 40 MG PO (09:00)
[2021-07-09] MEDS: Metoprolol Tartrate 25 MG TABLET PO ×3 (09:01→20:09)
[2021-07-09] MEDS: Nicotine 21 MG PATCH.TD24 TRANSDERMA (09:01)
[2021-07-09] MEDS: Apixaban 5 MG TABLET PO ×2 (09:01→20:09)
[2021-07-09] MEDS: 0.9 % Sodium Chloride Flush 3 ML SYRINGE IVFLUSH ×2 (09:01→15:34)
--- NOTE | 2021-07-09 09:49 | HO.ANESPROP2 ---
[facility] Active Problems Active Problems: All Active Problems (Updated 07/06/21 @ 13:13 by Edwar Mancera MD) CHF exacerbation (Acute) New onset a-fib (Acute) HTN (hypertension) (Acute) Past Medical History Medical History CHF exacerbation HTN (hypertension) Family History Family History Brother Cancer Father CAD (coronary artery disease) Surgical History History of Problems with Anesthesia: No Social History Social History Household Members: Children [facility] Do you presently have visiting nurse or other home services: No Unable to assess alcohol history related to: Unknown Alcohol intake: current Alcohol intake frequency: a few times a week Patient Tobacco Use Status: Current everyday Tobacco user Tobacco use type: Cigarette Years Smoked: 45 Smoked in Last 30 Days: Yes Patient Interested in Nicotine Replacement: Yes Patient Given Instructions on How to Stop Smoking: Yes Date Education Initiated: 07/06/21 Use of substances other than those prescribed or required for medical reasons: No Currently Displaying Signs/Symptoms of Drug Intoxication Withdrawal: No Have you been hit, kicked, punched, or otherwise hurt by someone within the past year? If so, by whom?: No Do you feel safe in your current relationship?: No Current Relationship Is there a partner from a previous relationship who is making you feel unsafe now?: No Are you made to feel afraid or neglected: No Are you DNR?: No Advance Directives: Yes Advance Directives Information Provided: No Advance Directives on File: No Advance Directives Date on File: 07/07/21 Do you have thoughts of harming others: None Do you have a plan to hurt others: No Plan Recently lost weight without trying: No Eating poorly because of decreased appetite: No Nutrition Risks: No Nutritional Risk Patient : No service: No Meds Allergies Allergy/AdvReac Type Severity Reaction Status Date / Time No Known Allergies Allergy Verified 07/06/21 08:24 Active Medications: Current Medications Acetaminophen (Acetaminophen 325 Mg Tablet) 650 mg PO Q6H PRN PRN Reason: Pain, Mild (Pain Scale 1-3) Albuterol/Ipratropium (Albuterol/Iprat 2.5/0.5mg 3 Ml Ampul.Neb) 3 ml INHALE Q4H PRN PRN Reason: sob Apixaban (Apixaban 5 Mg Tablet) 5 mg PO BID [facility] Last Admin: 07/09/21 09:01 Dose: 5 mg Documented by: Digoxin (Digoxin 0.125 Mg Tablet) 0.125 mg PO Q2D [facility] Last Admin: 07/09/21 09:02 Dose: Not Given Documented by: Furosemide (Furosemide 40 Mg Tablet) 40 mg PO DAILY [facility]; Protocol Ferric Sodium Gluconate Complex 125 mg/ Sodium Chloride 110 mls @ 100 mls/hr IV DAILY [facility] Stop: 07/10/21 10:05 Last Infusion: 07/08/21 12:21 Dose: Infused Documented by: Metoprolol Tartrate (Metoprolol Tartrate 25 Mg Tablet) 25 mg PO TID [facility]; Protocol Last Admin: 07/09/21 09:01 Dose: 25 mg Documented by: Nicotine (Nicotine 21 Mg Patch.Td24) 21 mg TRANSDERMA DAILY [facility] Last Admin: 07/09/21 09:01 Dose: 21 mg Documented by: Pharmacy Consult (Consult Rx Perform Med Rec) 1 each MISCELLANE ONCE PRN PRN Reason: Consult order Pharmacy Consult (Consult Rx Etoh Phenob Po Dose) 1 each MISCELLANE ONCE PRN; Protocol PRN Reason: Consult order Phenobarbital (Phenobarbital 15 Mg Tablet) 45 mg PO BID [facility] Stop: 07/10/21 09:01 Last Admin: 07/09/21 08:58 Dose: 45 mg Documented by: Phenobarbital (Phenobarbital 15 Mg Tablet) 15 mg PO BID [facility] Stop: 07/12/21 09:01 Phenobarbital (Phenobarbital 15 Mg Tablet) 15 mg PO DAILY [facility] Stop: 07/14/21 09:01 Prednisone (Prednisone 20 Mg Tablet) 40 mg PO DAILY [facility] Last Admin: 07/09/21 09:00 Dose: 40 mg Documented by: Sacubitril/Valsartan (Sacubitril/Valsartan 1 Tab Tablet) 1 tab PO BID [facility]; Protocol Last Admin: 07/09/21 09:00 Dose: 1 tab Documented by: Sodium Chloride (0.9 % Sodium Chloride Flush 3 Ml Syringe) 3 ml IVFLUSH QSHIFT [facility] Last Admin: 07/09/21 09:01 Dose: 3 ml Documented by: Home Medications Medication Instructions Recorded Confirmed Last Taken Type No Known Home Meds 07/06/21 07/06/21 Unknown History Exam Exam Date and Time: July 09, 2021 0949 Height,Weight and Vital Signs: Height 5 ft 10 in Weight 96.7 kg Last Vital Signs Temp 97.9 F 07/09/21 07:30 Pulse 109 H 07/09/21 07:30 Resp 18 07/09/21 07:30 BP 106/72 07/09/21 07:30 Pulse Ox 98 07/09/21 07:30 Pertinent Lab Results Pertinent Lab Results: Laboratory Tests 07/06/21 07/06/21 07/06/21 09:12 09:12 09:13 WBC 10.4 RBC 4.32 Hgb 11.6 L Hct 38.2 MCV 88.4 MCH 26.9 L MCHC 30.4 L RDW 16.3 H Plt Count 458 H MPV 9.7 Immature Gran % (Auto) 0.3 Neut % (Auto) 70.8 Lymph % (Auto) 21.3 Becker % (Auto) 6.9 Eos % (Auto) 0.3 Baso % (Auto) 0.4 Lymph # (Auto) 2.2 Becker # (Auto) 0.7 Eos # (Auto) 0.0 Baso # (Auto) 0.0 Abs Immat Gran (auto) 0.03 Absolute Neuts (auto) 7.4 Absolute Nucleated RBC 0.000 Nucleated RBC % (auto) 0.0 PT INR APTT Sodium 138 Potassium 4.9 Chloride 105 Carbon Dioxide 21 L Anion Gap 17 BUN 15 Creatinine 0.77 Estim Creat Clear Calc 95.4 Estimated GFR > 60 Random Glucose 131 H Fasting Glucose Calcium 9.3 Magnesium 1.8 Iron TIBC % Saturation Unsat Iron Binding Total Bilirubin 0.9 AST 29 ALT 28 Alkaline Phosphatase 98 Troponin I High Sens 29.6 H B-Natriuretic Peptide 676 H Total Protein 6.9 Albumin 3.4 L COVID-19 (JAJA) COVID-19 Clin Com 07/06/21 07/06/21 07/06/21 09:13 11:38 11:38 WBC RBC Hgb Hct MCV MCH MCHC RDW Plt Count MPV Immature Gran % (Auto) Neut % (Auto) Lymph % (Auto) Becker % (Auto) Eos % (Auto) Baso % (Auto) Lymph # (Auto) Becker # (Auto) Eos # (Auto) Baso # (Auto) Abs Immat Gran (auto) Absolute Neuts (auto) Absolute Nucleated RBC Nucleated RBC % (auto) PT 16.1 H INR 1.4 H APTT 31.2 Sodium Potassium Chloride Carbon Dioxide Anion Gap BUN Creatinine Estim Creat Clear Calc Estimated GFR Random Glucose Fasting Glucose Calcium Magnesium Iron TIBC % Saturation Unsat Iron Binding Total Bilirubin AST ALT Alkaline Phosphatase Troponin I High Sens 36.6 H B-Natriuretic Peptide Total Protein Albumin COVID-19 (JAJA) Negative COVID-19 Clin Com See Note 07/07/21 07/07/21 07/08/21 07:26 07:26 06:29 WBC 9.9 13.9 H RBC 4.29 4.55 Hgb 11.7 L 12.2 Hct 37.8 39.8 MCV 88.1 87.5 MCH 27.3 26.8 L MCHC 31.0 30.7 L RDW 16.5 H 16.3 H Plt Count 430 H 461 H MPV 9.6 9.5 Immature Gran % (Auto) Neut % (Auto) Lymph % (Auto) Becker % (Auto) Eos % (Auto) Baso % (Auto) Lymph # (Auto) Becker # (Auto) Eos # (Auto) Baso # (Auto) Abs Immat Gran (auto) Absolute Neuts (auto) Absolute Nucleated RBC 0.000 0.000 Nucleated RBC % (auto) 0.0 0.0 PT INR APTT Sodium 140 Potassium 4.3 Chloride 102 Carbon Dioxide 29 Anion Gap 13 BUN 14 Creatinine 0.87 Estim Creat Clear Calc 84.4 Estimated GFR > 60 Random Glucose Fasting Glucose 112 H Calcium 9.3 Magnesium 1.7 Iron TIBC % Saturation Unsat Iron Binding Total Bilirubin AST ALT Alkaline Phosphatase Troponin I High Sens B-Natriuretic Peptide Total Protein Albumin COVID-19 (JAJA) COVID-19 Qriously 07/08/21 07/09/21 07/09/21 06:30 06:50 06:50 WBC 14.4 H RBC 5.14 Hgb 13.8 Hct 44.9 MCV 87.4 MCH 26.8 L MCHC 30.7 L RDW 16.2 H Plt Count 525 H MPV 9.9 Immature Gran % (Auto) Neut % (Auto) Lymph % (Auto) Becker % (Auto) Eos % (Auto) Baso % (Auto) Lymph # (Auto) Becker # (Auto) Eos # (Auto) Baso # (Auto) Abs Immat Gran (auto) Absolute Neuts (auto) Absolute Nucleated RBC 0.000 Nucleated RBC % (auto) 0.0 PT INR APTT Sodium 138 140 Potassium 3.7 4.2 Chloride 100 99 Carbon Dioxide 29 33 H Anion Gap 13 12 BUN 18 H 16 Creatinine 0.85 0.85 Estim Creat Clear Calc 86.4 86.4 Estimated GFR > 60 > 60 Random Glucose Fasting Glucose 92 75 Calcium 9.4 9.3 Magnesium Iron 22 L TIBC 503 H % Saturation 4 L Unsat Iron Binding 481 Total Bilirubin AST ALT Alkaline Phosphatase Troponin I High Sens B-Natriuretic Peptide Total Protein Albumin COVID-19 (JAJA) COVID-19 Clin Com Airway Loose/Missing/Broken Teeth: Yes (Very poor dentition, numerous broken teeth) Heart: Irregularly irregular Lungs: exp wheeze right upper lobe Assessment and Plan Assessment Anesthesia Assessment: Anesthesia Plan Discussed and Chart Reviewed Final Anesthetic Review History of Problems with Anesthesia: No NPO: Yes ASA Class: III Final Preanesthetic Review: Meds/Allgs Chart Reviewed, Consent Obtained/Reviewed and Anes Risks/Benef Reviewed Patient Risk: Intermediate Procedure Risk: Low Anesthetic Plan Anesthetic Plan: MAC: Disposition: Standard PACU
[2021-07-09] MEDS: Albuterol/Iprat 2.5/0.5MG 3 ML AMPUL.NEB INHALE (10:07)
[2021-07-09] MEDS: Lactated Ringers 1,000 ML 50 ML IVCONT (10:44)
--- NOTE | 2021-07-09 10:47 | PM.PNCARD ---
Subjective Subjective Date of Service: 07/09/21 Interval history: Seen before cardioversion. Was feeling better. No shortness of breath. Physical Exam Vital Signs: Last Vital Signs Temp 47.3 F L 07/09/21 09:49 Pulse 108 H 07/09/21 10:07 Resp 18 07/09/21 10:07 BP 143/79 H 07/09/21 09:49 Pulse Ox 97 07/09/21 09:49 BMI result Body Mass Index 30.6 GENERAL APPEARANCE: in no acute distress, pleasant. NECK: no carotid bruit, no jugular venous distention. SKIN: no suspicious lesions, warm and dry. HEART:? Systolic murmur at the apex.? Irregularly irregular rhythm. LUNGS: clear to auscultation bilaterally. ABDOMEN: soft, nontender. EXTREMITIES: no edema. PERIPHERAL PULSES: equal. NEUROLOGIC: No gross deficits, AAO X 3 Objective Labs and Meds Result diagrams: 07/09/21 06:50 07/09/21 06:50 Lab results: Laboratory Results - last 24 hr 07/09/21 07/09/21 06:50 06:50 WBC 14.4 H RBC 5.14 Hgb 13.8 Hct 44.9 MCV 87.4 MCH 26.8 L MCHC 30.7 L RDW 16.2 H Plt Count 525 H MPV 9.9 Absolute Nucleated RBC 0.000 Nucleated RBC % (auto) 0.0 Sodium 140 Potassium 4.2 Chloride 99 Carbon Dioxide 33 H Anion Gap 12 BUN 16 Creatinine 0.85 Estim Creat Clear Calc 86.4 Estimated GFR > 60 Fasting Glucose 75 Calcium 9.3 Progress Note: A&P Assessment and plan (1) CHF exacerbation: Status: Acute (2) New onset a-fib: Status: Acute Plan Pleasant 60 year female with new onset congestive heart failure and AFib. Has been started Entresto and beta-reji. Euvolemic. We will try to do JOSEFINA cardioversion today. Will follow along with you. Thank you for allowing me to participate in the care of your patient. Please feel free to contact me if you have any questions. Time Spent With Patient Time: Total time spent is greater than 50% in coordination of care (as documented) at patient's floor/unit and/or counseling patient: Progress Note: Quality Stroke Does the patient have a stroke diagnosis?: No Procedures Date of Service Date of Service: 07/09/21
--- NOTE | 2021-07-09 12:30 | CA_ITS ---
Transesophageal Echocardiogram Patient (Last, First, Middle): Lo Dennison, Gender: Female Date of : 1960 Age: 60 Procedure Date: 07/09/2021 Procedure Type: Transesophageal Echocardiogram Location: [facility] Height: 177.8 cm Weight: 90.72 kg BSA: 2.09 m2 Heart Rate: bpm Methods Analyst Data Processing: ARMIN Referring MD: Travis Plummer MD Symptoms: Afib Conclusion: ??? No clot in LA or LANA. We proceeded with cardioversion. Findings Left Ventricle Normal left ventricular cavity size. The left ventricular systolic function is moderately decreased. The visually estimated ejection fraction is between 30-35%. There is moderate global hypokinesis. Diastolic function is indeterminate on the basis of available data. Right Ventricle Normal right ventricular cavity size. There is mildly decreased right ventricular systolic function. Atria There is no evidence of thrombus or mass in the left atrium. No LANA clot. Aortic Valve There is a normal trileaflet aortic valve. Mitral Valve The mitral valve appears normal. There is moderate mitral valve regurgitation. Pulmonic Valve The pulmonic valve is likely normal. Tricuspid Valve Normal tricuspid valve structure and function. There is mild tricuspid valve regurgitation. Tricuspid regurgitation envelope is inadequate for calculation of right ventricular systolic pressure. Great Vessels All visible segments of the aorta are normal in size. Pericardium/Pleural There is no evidence of pericardial effusion. Updated by Travis Plummer on 10:08 AM with Status of Final Travis Plummer MD electronically signed on 07/10/2021 10:08:54 AM with status of Final
--- NOTE | 2021-07-09 13:52 | HO.CARDIVERS ---
Cardioversion Procedure Note Cardioversion Date of Procedure: 07/09/21 Ordering Provider: Travis Plummer Performing Provider: Travis Plummer Indication for Procedure: Afib Pre-Op Diagnosis: Afib Performed with Transesophageal Echo: Yes JOSEFINA findings (if JOSEFINA Performed): no LA or LANA clot. Consent: Verbal and Written consent was obtained from the patient before starting. The patient was made aware of the risk of stroke, skin irritation. Procedure: After consent obtained, defib pads were attached and the patient was sedated by the anesthesia team. Once adequate sedation achieved, patient was given synchronized shock of 200 J. This lead to breaking of Afib but she unfortunately went back into Afib. We tried again with 200 J and brief sinus rhythm for couple of beats but again afib took over. We decided to stop and load her with amiodarone and try again. Complications: None Recommendations: Stop digoxin. Adding amiodarone 400 mg BID x 2 weeks followed by 200 mg daily. We will reattempt cardioversion after that as outpatient.
[2021-07-09] MEDS: Sodium Ferric Gluconat/Sucrose 125 MG in 0.9 % Sodium Chloride 100 ML 100 MG IV (13:56)
--- NOTE | 2021-07-09 14:15 | HE.PHANOTE ---
PHENOBARBITAL AND AMIODARONE SPOKE TO DR ALANIZ. WE ALTERED PHENOBARB TAPER DUE TO INTERACTION WITH PHENOBARB. (45 BID X4 TO 30 BID X2, THEN 15 BID X2, THEN 15 QD X 2)
--- NOTE | 2021-07-09 14:29 | MHC.CM.PN ---
per rounds pt will be dcd thur plan [facility] home
[2021-07-09] MEDS: Amiodarone HCL 200 MG TABLET 400 MG PO ×2 (14:30→20:09)
--- NOTE | 2021-07-09 14:49 | P.PNIM_ITS ---
Subjective Subjective Date of Service: 07/09/21 Interval History: Seen and evaluated this afternoon Had cardioversion done in the morning But failed to bring her back to sinus rhythm Edema improving Review of Systems No fever, chills or weakness No chest pain, but has palpitation No shortness of breath or coughing but reporting lower extremity edema No abdominal pain, nausea or vomiting No urinary symptoms No any rash or wounds Physical Exam Vital Signs: Vital Signs: Last Vital Signs Temp 98.4 F 07/09/21 13:01 Pulse 98 07/09/21 13:01 Resp 18 07/09/21 13:01 BP 114/84 07/09/21 13:01 Pulse Ox 97 07/09/21 13:01 BMI result Body Mass Index 30.6 Const: Other: Constitutional : Alert, oriented, mildly anxious Neck : Normal inspection, Supple Cardiovascular : irregular irregular, elevated JVP, +1 bilateral lower extre mity edema Respiratory : fair bilateral air entry, no crackles, wheezes or rhonchi Gastrointestinal: soft, lax, Normal bowel sounds, Non tender Skin : Warm, Dry Neurological : Alert & oriented x3, No focal deficit , CN 2-12 within normal Objective Data Active Medications Acetaminophen (Acetaminophen 325 Mg Tablet) 650 mg PO Q6H PRN PRN Reason: Pain, Mild (Pain Scale 1-3) Acetaminophen (Acetaminophen 325 Mg Tablet) 650 mg PO ONCE PRN PRN Reason: Pain, Mild (Pain Scale 1-3) Albuterol/Ipratropium (Albuterol/Iprat 2.5/0.5mg 3 Ml Ampul.Neb) 3 ml INHALE Q4H PRN PRN Reason: sob Last Admin: 07/09/21 10:07 Dose: 3 ml Documented by: WILMER Amiodarone HCl (Amiodarone Hcl 200 Mg Tablet) 400 mg PO BID [facility] Last Admin: 07/09/21 14:30 Dose: 400 mg Documented by: CHRIS Apixaban (Apixaban 5 Mg Tablet) 5 mg PO BID [facility] Last Admin: 07/09/21 09:01 Dose: 5 mg Documented by: CHRIS Furosemide (Furosemide 40 Mg Tablet) 40 mg PO DAILY [facility]; Protocol Last Admin: 07/09/21 14:02 Dose: Not Given Documented by: CHRIS Non-Admin Reason: given IV Ferric Sodium Gluconate Complex 125 mg/ Sodium Chloride 110 mls @ 100 mls/hr IV DAILY [facility] Stop: 07/10/21 10:05 Last Admin: 07/09/21 13:56 Dose: 100 mls/hr Documented by: CHRIS Lactated Ringer's (Lr) 1,000 mls @ 50 mls/hr IVCONT .Q20H [facility] Last Admin: 07/09/21 10:44 Dose: 50 mls/hr Documented by: DELFINO Metoprolol Tartrate (Metoprolol Tartrate 25 Mg Tablet) 25 mg PO TID [facility]; Protocol Last Admin: 07/09/21 14:14 Dose: 25 mg Documented by: CHRIS Nicotine (Nicotine 21 Mg Patch.Td24) 21 mg TRANSDERMA DAILY [facility] Last Admin: 07/09/21 09:01 Dose: 21 mg Documented by: CHRIS Pharmacy Consult (Consult Rx Perform Med Rec) 1 each MISCELLANE ONCE PRN PRN Reason: Consult order Pharmacy Consult (Consult Rx Etoh Phenob Po Dose) 1 each MISCELLANE ONCE PRN; Protocol PRN Reason: Consult order Phenobarbital (Phenobarbital 15 Mg Tablet) 15 mg PO DAILY [facility] Stop: 07/13/21 09:01 Phenobarbital (Phenobarbital 15 Mg Tablet) 30 mg PO BID [facility] Stop: 07/10/21 09:01 Phenobarbital (Phenobarbital 15 Mg Tablet) 15 mg PO BID [facility] Stop: 07/11/21 09:01 Prednisone (Prednisone 20 Mg Tablet) 40 mg PO DAILY [facility] Last Admin: 07/09/21 09:00 Dose: 40 mg Documented by: CHRIS Sacubitril/Valsartan (Sacubitril/Valsartan 1 Tab Tablet) 1 tab PO BID [facility]; Protocol Last Admin: 07/09/21 09:00 Dose: 1 tab Documented by: CHRIS Sodium Chloride (0.9 % Sodium Chloride Flush 3 Ml Syringe) 3 ml IVFLUSH QSHIFT [facility] Last Admin: 07/09/21 09:01 Dose: 3 ml Documented by: CHRIS Labs CBC & Chem 7: 07/09/21 06:50 07/09/21 06:50 Labs: Laboratory Results - last 24 hr 07/09/21 07/09/21 06:50 06:50 MCV 87.4 MCH 26.8 L MCHC 30.7 L RDW 16.2 H Plt Count 525 H MPV 9.9 Absolute Nucleated RBC 0.000 Nucleated RBC % (auto) 0.0 Anion Gap 12 Estim Creat Clear Calc 86.4 Estimated GFR > 60 Fasting Glucose 75 Calcium 9.3 Assessment and Plan (1) CHF exacerbation: Status: Acute (2) New onset a-fib: Status: Acute (3) Alcohol withdrawal: Status: Acute Plan 60F presented with sob, found to be in new onset afib, chf new onset afib continue metoprolol, Echo showing within normal EF cardio following continue eliquis attempted cardioversion failed to convert her back to sinus as the patient went directly into AFib again Started amiodarone drip acute chf unspecified continue iv lasix Intake and output presumed COPD with acute decompensation prednisone, bronchodilators nicotine dependence nicoderm smoking cessation alcohol dependence with withdrawal continue phenobarb reported history of HTN no longer on meds monitor chronic iron defeciency anemia will give iv iron dvt prophylaxis - lovenox full code reason for continued hospitalization: still in afib with rvr, diuresisng, actively withrdawing from alcohol will need further inpatient care to prevent decompensation. Quality Stroke Does the patient have a stroke diagnosis?: No VTE Prior VTE?: No VTE Risk Level:: Medical - moderate - high VTE Device Contraindication: Treatment Not Indicated VTE Drug Contraindication: N/A - Med Ordered
[2021-07-09] MEDS: PHENobarbitaL 15 MG TABLET 30 MG PO (20:09)
[2021-07-10] VITALS (10 sets, daily range): BP systolic 91–110; BP diastolic 63–75; PULSE 68–106; RESP 16–20; TEMP 36.1–36.6; O2SAT 95–99
[2021-07-10] MEDS: 0.9 % Sodium Chloride Flush 3 ML SYRINGE IVFLUSH ×3 (00:05→15:52)
[2021-07-10 07:39] LABS: Anion Gap 17 (12-20); Blood Urea Nitrogen 21 mg/dL (9-16); Calcium 8.5 mg/dL (8.4-10.2); Carbon Dioxide 30 mmol/L (22-29); Chloride 98 mmol/L (96-108); Estimated Glomerular Filt Rate 55; Glucose Random 79 mg/dL (60-115); Potassium 4.5 mmol/L (3.3-5.1); Sodium 140 mmol/L (135-145)
--- NOTE | 2021-07-10 08:47 | HO.POSTANES ---
Post Anesthesia Evaluation Post Anesthesia Evaluation Vital Signs: Vital Signs Temp Pulse Resp BP Pulse Ox 07/10/21 07:13 97.2 F 106 H 20 103/73 99 07/10/21 03:48 97.2 F 82 20 107/71 95 07/10/21 00:00 96.9 F 105 H 20 102/73 96 Anesthesia: TIVA Mental Status: Awake Pain Control: Satisfactory Nausea/Vomiting: None Hydration: Adequate Anesthesia-Related Issues: No Anes. Related Issues
[2021-07-10] MEDS: predniSONE 20 MG TABLET 40 MG PO (09:17)
[2021-07-10] MEDS: Nicotine 21 MG PATCH.TD24 TRANSDERMA (09:17)
[2021-07-10] MEDS: Amiodarone HCL 200 MG TABLET 400 MG PO ×2 (09:18→20:54)
[2021-07-10] MEDS: Apixaban 5 MG TABLET PO ×2 (09:18→20:54)
[2021-07-10] MEDS: PHENobarbitaL 15 MG TABLET 30 MG PO (09:18)
[2021-07-10] MEDS: Furosemide 40 MG TABLET PO (09:18)
[2021-07-10] MEDS: Sacubitril/Valsartan 24/26 1 TAB TABLET PO ×2 (09:18→20:54)
[2021-07-10] MEDS: Metoprolol Tartrate 25 MG TABLET PO ×4 (09:18→20:54)
[2021-07-10] MEDS: Sodium Ferric Gluconat/Sucrose 125 MG in 0.9 % Sodium Chloride 100 ML 100 MG IV (10:44)
--- NOTE | 2021-07-10 12:02 | PM.PNCARD ---
Subjective Subjective Date of Service: 07/10/21 Principal diagnosis: CHF, atrial fibrillation Interval history: patient complaining of wheezing this morning and some cough. Denies any palpitations, shortness of breath. No leg edema. No lightheadedness, syncope. Remains in atrial fibrillation with slightly uncontrolled ventricular rate. Review of Systems Constitutional: Reports no additional constitutional complaints Eyes: Reports no additional eye complaints Cardiovascular: Reports no additional cardiovascular complaints Respiratory: Reports cough and Reports wheezing Gastrointestinal: Reports no additional gastrointestinal complaints Genitourinary: Reports no additional female genitourinary complaints Musculoskeletal: Reports no additional musculoskeletal complaints Skin/Breast: Reports system reviewed and no additional complaints, except as docu Reports system reviewed and no additional complaints, except as documented Psychiatric: Reports no additional psychiatric complaints Endocrine: Reports no additional endocrine complaints Hematologic/Lymphatic: Reports no additional hematologic/lymphatic complaints Allergic/Immunologic: Reports no additional allergic/immunologic complaints and Reports wheezing Physical Exam Vital Signs: Last Vital Signs Temp 97.2 F 07/10/21 07:13 Pulse 106 H 07/10/21 07:13 Resp 20 07/10/21 07:13 BP 103/73 07/10/21 07:13 Pulse Ox 99 07/10/21 07:13 BMI result Body Mass Index 30.6 Const General: cooperative, comfortable, no acute distress, alert and awake Nutritional Appearance: average body habitus Orientation/consciousness: patient oriented x3 Neck Neck: Yes trachea midline, Yes supple and Yes no JVD Resp Effort & Inspection: normal respiratory effort Auscultation: wheezes scattered wheezes and diminished lung sounds Cardio Jugular venous distension: no JVD Rate: tachycardic Rhythm: abnormal rhythm irregularly irregular Heart sounds: S1 normal heart sound present, S2 normal heart sound present, no click, no gallops, no murmurs and no rubs GI Auscultation: normal bowel sounds Skin General skin exam: no rashes or lesions noted Neuro General: patient oriented x3 and no focal motor deficits Extrem General: Yes no clubbing, cyanosis or edema Objective Labs and Meds Result diagrams: 07/09/21 06:50 07/10/21 06:18 Lab results: Laboratory Results - last 24 hr 07/10/21 06:18 Sodium 140 Potassium 4.5 Chloride 98 Carbon Dioxide 30 H Anion Gap 17 BUN 21 H Creatinine 1.02 Estim Creat Clear Calc 72.0 Estimated GFR 55 Random Glucose 79 Calcium 8.5 D Progress Note: A&P Assessment and plan (1) Heart failure with reduced ejection fraction: Status: Acute Assessment and Plan: heart failure with reduced ejection fraction presentation which has improved with diuresis. Has had total negative balance of 4 L. Doing well. Clinically appears to be euvolemic and well compensated. Current wheezing appears to be probably related to some aspiration from anesthesia yesterday. Consider bronchodilators with pulmonary specific bronchodilators. Continue Entresto as well as metoprolol for neurohormonal modulation. Cannot maximize this Entresto due to low blood pressure. Will increase metoprolol, see below. cardiomyopathy more could be related to tachycardia mediated cardiomyopathy due to AFib or alcohol. Ischemia also needs to be ruled out. Will perform outpatient ischemic workup. (2) New onset a-fib: Status: Acute Assessment and Plan: Atrial fibrillation with attempted cardioversion yesterday, did not maintain rhythm, consistent with resistant and persistent atrial fibrillation. Agree with amiodarone loading 400 mg b.i.d.. Rate still seems to be not adequately controlled. Increase metoprolol to 25 mg p.o. q.6 hours. Couple of doses of IV digoxin. Will continue monitor rate. If rate gets better controlled by tomorrow can be discharged. Continue full oral anticoagulation as prescribed. Will follow with you Time Spent With Patient Time: Total time spent is greater than 50% in coordination of care (as documented) at patient's floor/unit and/or counseling patient: Progress Note: Quality Stroke Does the patient have a stroke diagnosis?: No Procedures Date of Service Date of Service: 07/10/21
[2021-07-10] MEDS: Digoxin 0.25 MG TABLET PO ×2 (12:53→17:32)
--- NOTE | 2021-07-10 16:07 | P.PNIM_ITS ---
Subjective Subjective Date of Service: 07/10/21 Interval History: Seen and evaluated this Still reporting palpitation, heart rate still up to 120s Denies any chest pain Edema improving No other overnight events Review of Systems No fever, chills or weakness No chest pain, but has palpitation No shortness of breath or coughing but reporting lower extremity edema improving No abdominal pain, nausea or vomiting No urinary symptoms No any rash or wounds Physical Exam Vital Signs: Vital Signs: Last Vital Signs Temp 97.4 F 07/10/21 12:00 Pulse 98 07/10/21 15:11 Resp 16 07/10/21 15:11 BP 96/75 07/10/21 12:49 Pulse Ox 95 07/10/21 12:00 BMI result Body Mass Index 30.6 Const: Other: Constitutional : Alert, oriented, not in distress Neck : Normal inspection, Supple Cardiovascular : irregular irregular, improving JVP, trace bilateral lower extremity edema Respiratory : fair bilateral air entry, no crackles, wheezes or rhonchi Gastrointestinal: soft, lax, Normal bowel sounds, Non tender Skin : Warm, Dry Neurological : Alert & oriented x3, No focal deficit , CN 2-12 within normal Objective Data Active Medications Acetaminophen (Acetaminophen 325 Mg Tablet) 650 mg PO Q6H PRN PRN Reason: Pain, Mild (Pain Scale 1-3) Acetaminophen (Acetaminophen 325 Mg Tablet) 650 mg PO ONCE PRN PRN Reason: Pain, Mild (Pain Scale 1-3) Albuterol/Ipratropium (Albuterol/Iprat 2.5/0.5mg 3 Ml Ampul.Neb) 3 ml INHALE Q4H PRN PRN Reason: sob Last Admin: 07/09/21 10:07 Dose: 3 ml Documented by: WILMER Amiodarone HCl (Amiodarone Hcl 200 Mg Tablet) 400 mg PO BID [facility] Last Admin: 07/10/21 09:18 Dose: 400 mg Documented by: CHRIS Apixaban (Apixaban 5 Mg Tablet) 5 mg PO BID [facility] Last Admin: 07/10/21 09:18 Dose: 5 mg Documented by: CHRIS Digoxin (Digoxin 0.25 Mg Tablet) 0.25 mg PO Q6H [facility] Last Admin: 07/10/21 12:53 Dose: 0.25 mg Documented by: CHRIS Furosemide (Furosemide 40 Mg Tablet) 40 mg PO DAILY [facility]; Protocol Last Admin: 07/10/21 09:18 Dose: 40 mg Documented by: CHRIS Levalbuterol HCl (Levalbuterol Hcl 1.25 Mg/0.5 Ml Vial.Neb) 1.25 mg INHALE RQ4H WHILE AWAKE [facility] Last Admin: 07/10/21 15:07 Dose: 1.25 mg Documented by: CASA Metoprolol Tartrate (Metoprolol Tartrate 25 Mg Tablet) 25 mg PO QID [facility]; Protocol Last Admin: 07/10/21 12:53 Dose: 25 mg Documented by: CHRIS Nicotine (Nicotine 21 Mg Patch.Td24) 21 mg TRANSDERMA DAILY [facility] Last Admin: 07/10/21 09:17 Dose: 21 mg Documented by: CHRIS Pharmacy Consult (Consult Rx Perform Med Rec) 1 each MISCELLANE ONCE PRN PRN Reason: Consult order Pharmacy Consult (Consult Rx Etoh Phenob Po Dose) 1 each MISCELLANE ONCE PRN; Protocol PRN Reason: Consult order Phenobarbital (Phenobarbital 15 Mg Tablet) 15 mg PO DAILY [facility] Stop: 07/13/21 09:01 Phenobarbital (Phenobarbital 15 Mg Tablet) 15 mg PO BID [facility] Stop: 07/11/21 09:01 Prednisone (Prednisone 20 Mg Tablet) 40 mg PO DAILY [facility] Last Admin: 07/10/21 09:17 Dose: 40 mg Documented by: CHRIS Sacubitril/Valsartan (Sacubitril/Valsartan 1 Tab Tablet) 1 tab PO BID [facility]; Protocol Last Admin: 07/10/21 09:18 Dose: 1 tab Documented by: CHRIS Sodium Chloride (0.9 % Sodium Chloride Flush 3 Ml Syringe) 3 ml IVFLUSH QSHIFT [facility] Last Admin: 07/10/21 15:52 Dose: 3 ml Documented by: HUMBERTO Labs CBC & Chem 7: 07/09/21 06:50 07/10/21 06:18 Labs: Laboratory Results - last 24 hr 07/10/21 06:18 Anion Gap 17 Estim Creat Clear Calc 72.0 Estimated GFR 55 Random Glucose 79 Calcium 8.5 D Assessment and Plan (1) Heart failure with reduced ejection fraction: Status: Acute (2) Alcohol withdrawal: Status: Acute (3) New onset a-fib: Status: Acute (4) CHF exacerbation: Status: Acute Plan 60F presented with sob, found to be in new onset afib, chf new onset afib\ Echo showing within normal EF cardio following continue eliquis attempted cardioversion failed to convert her back to sinus as the patient went directly into AFib again , to try again in few months Continue amiodarone 400 b.i.d. Started on digoxin Increase metoprolol to 25 mg q.i.d. acute chf unspecified continue iv lasix Intake and output presumed COPD with acute decompensation prednisone, bronchodilators nicotine dependence nicoderm smoking cessation alcohol dependence with withdrawal continue phenobarb reported history of HTN no longer on meds monitor chronic iron defeciency anemia will give iv iron dvt prophylaxis - lovenox full code reason for continued hospitalization: still in afib with rvr, diuresisng, actively withrdawing from alcohol will need further inpatient care to prevent decompensation. Quality Stroke Does the patient have a stroke diagnosis?: No VTE Prior VTE?: No VTE Risk Level:: Medical - moderate - high VTE Device Contraindication: Treatment Not Indicated VTE Drug Contraindication: N/A - Med Ordered
[2021-07-10] MEDS: PHENobarbitaL 15 MG TABLET PO ×2 (20:54→20:56)
[2021-07-11] MEDS: Digoxin 0.25 MG TABLET PO ×2 (01:38→06:35)
[2021-07-11] MEDS: 0.9 % Sodium Chloride Flush 3 ML SYRINGE IVFLUSH ×2 (01:38→09:09)
[2021-07-11 03:17] VITALS: BP 111/74; PULSE 70; RESP 18; TEMP 36.5; O2SAT 98
[2021-07-11 07:30] LABS: Anion Gap 12 (12-20); Blood Urea Nitrogen 22 mg/dL (9-16); Calcium 8.4 mg/dL (8.4-10.2); Carbon Dioxide 32 mmol/L (22-29); Chloride 101 mmol/L (96-108); Creatinine Clr Calc Pharmacy 74.9; Estimated Glomerular Filt Rate 58; Glucose Random 96 mg/dL (60-115); Potassium 5.1 mmol/L (3.3-5.1); Sodium 140 mmol/L (135-145)
[2021-07-11 07:35] LABS: B Type Natriuretic Peptide 331 pg/mL (<100)
[2021-07-11 07:44] VITALS: PULSE 74; RESP 18; O2SAT 97
[2021-07-11 07:45] VITALS: BP 137/89; PULSE 86; RESP 14; TEMP 36.6; O2SAT 99
[2021-07-11 08:00] VITALS: BP 137/89; PULSE 86; RESP 14; TEMP 36.6; O2SAT 99
[2021-07-11] MEDS: Nicotine 21 MG PATCH.TD24 TRANSDERMA (09:11)
[2021-07-11] MEDS: Amiodarone HCL 200 MG TABLET 400 MG PO (09:12)
[2021-07-11] MEDS: Metoprolol Tartrate 25 MG TABLET PO ×2 (09:12→12:50)
[2021-07-11] MEDS: predniSONE 20 MG TABLET 40 MG PO (09:12)
[2021-07-11] MEDS: Furosemide 40 MG TABLET PO (09:13)
[2021-07-11] MEDS: Sacubitril/Valsartan 24/26 1 TAB TABLET PO (09:13)
[2021-07-11] MEDS: Apixaban 5 MG TABLET PO (09:13)
[2021-07-11] MEDS: PHENobarbitaL 15 MG TABLET PO (09:13)
--- NOTE | 2021-07-11 11:20 | PM.DS ---
DS: Providers Provider Date of Service: 07/11/21 Date of admission: 07/06/21 13:16 Primary care physician: [facility] Consults: 07/06/21 13:15 Consult to Cardiology Routine Consulting Provider: Dave Ibanez Reason for consultation: afib, chf DS: Diagnosis Discharge Diagnosis (1) Heart failure with reduced ejection fraction: Status: Acute (2) Alcohol withdrawal: Status: Acute (3) New onset a-fib: Status: Acute (4) CHF exacerbation: Status: Acute DS: Summary Hospital Course Hospital Course: Admission note HPI 60F? with no significant medical history, does not follow with physicians, ? Presented with 2 weeks of shortness of breath and lower extremity edema.? Prior to this patient states she is in good health, about 2 weeks prior to presentation she started noticing worsening lower extremity edema and shortness of breath worse on exertion with positive orthopnea.? Symptoms became gradually worse until night prior to presentation patient was unable to sleep due to shortness of breath.? She denies any chest pains or palpitations.? She denies fevers, chills.? In ED patient found to be in atrial fibrillation with rapid ventricular response, also noted to have elevated BNP, CTA showed no PE but did show bilateral pleural effusions. Hospital course The patient was admitted to the hospital for evaluation of shortness of breath found to be again in new onset atrial fibrillation with evidence of heart failure. Echo was done showing decreased ejection fraction to 30 35% with global hypokinesis. Evaluated by Cardiology team who recommended starting Entresto and Lasix S the patient breathing improved up on using diuresis. She was started on metoprolol for rate controlled. JOSEFINA was done with cardioversion attempt but the patient converted back to AFib minutes after the procedure. Cardiology decided to load her with amiodarone and digoxin was added later with good response as her heart rate improved between 80s to 90s with a plan to repeat cardioversion in few weeks on full anticoagulation with Eliquis. The page and went through alcohol withdrawal with and phenobarbital protocol was used with fair response. Received treatments with nebulizer and prednisone for COPD exacerbation. Nicotine replacement therapy was started and she was advised to quit both alcohol and smoking which she agrees to do. Noticed to have iron deficiency anemia with low iron stores. To be prescribed iron pills on discharge. Start Lasix and Entresto for heart failure Start amiodarone 400 mg twice daily for 2 weeks then 400 mg once daily. Start digoxin and metoprolol as prescribed To use Eliquis 5 mg twice daily as anticoagulation to reduce the risk of stroke. To follow-up with posting machine operator as outpatient for Holter monitor and repeat cardioversion in few weeks. Time Spent with Patient Time attestation: Total time spent providing and/or coordinating discharge services: Discharge coordination time: Greater than 30 minutes Quality: Safe Use of Opioids Does Pt have an Active Cancer Diagnosis on the Problem List?: No Quality: Stroke Does the patient have a stroke diagnosis?: No Physical Exam Vital Signs: Vital Signs: Last Vital Signs Temp 97.9 F 07/11/21 08:00 Pulse 86 07/11/21 08:00 Resp 14 07/11/21 08:00 BP 137/89 07/11/21 08:00 Pulse Ox 99 07/11/21 08:00 BMI result Body Mass Index 30.6 Const: Other: Constitutional : Alert, oriented, not in distress Neck : Normal inspection, Supple Cardiovascular : irregular irregular, no JVP, no bilateral lower extremity edema Respiratory : fair bilateral air entry, no crackles, wheezes or rhonchi Gastrointestinal: soft, lax, Normal bowel sounds, Non tender Skin : Warm, Dry Neurological : Alert & oriented x3, No focal deficit , CN 2-12 within normal DS: Data Data Completed and Pending Labs on day of discharge: Laboratory Results - last 24 hr 07/11/21 07/11/21 06:28 06:28 Sodium 140 Potassium 5.1 Chloride 101 Carbon Dioxide 32 H Anion Gap 12 BUN 22 H Creatinine 0.98 Estim Creat Clear Calc 74.9 Estimated GFR 58 Random Glucose 96 Calcium 8.4 B-Natriuretic Peptide 331 H Discharge Plan Discharge Patient Disposition: Home, Self-Care Discharge Diagnosis: New onset atrial fibrillation Heart failure exacerbation Alcohol withdrawal Referrals: [place] [Primary Care Provider] - 1 Week Discharge Medications: New furosemide 40 mg Tablet 40 mg PO DAILY 30 Days Qty: 30 0RF Protocol: Hold for SBP< HOLD for SBP < : 90 amiodarone 200 mg Tablet 400 mg PO BID 14 Days Qty: 56 0RF nicotine 21 mg/24 hr Patch 24 Hour 21 mg transdermal DAILY 30 Days 0RF Eliquis 5 mg Tablet 5 mg PO BID 30 Days Qty: 60 0RF Entresto 24-26 mg Tablet 1 tab PO BID 30 Days Qty: 60 0RF Protocol: Hold for SBP< HOLD for SBP < : 90 digoxin [Digox] 125 mcg (0.125 mg) tablet 125 mcg PO DAILY Qty: 30 0RF metoprolol succinate 100 mg capsule,sprinkle,ER 24hr 100 mg PO DAILY Qty: 30 0RF amiodarone 400 mg tablet 400 mg PO DAILY Qty: 30 0RF Rx Instructions: To start on 07/25/21 ferrous sulfate 325 mg (65 mg iron) tablet 325 mg PO DAILY Qty: 30 0RF Discharge Orders: Discharge Order (Routine); Ordered 07/11/21 Ordered By: Naomie Grant Diet: advance to usual diet and low salt diet Activity on Discharge: As tolerated Stand Alone Forms: Patient Portal Discharge page, Work/School Release Care Plan Goals: Read below Health Concerns: Read below Plan of Treatment: Read below Assessment: You were admitted to the hospital for treatment of heart failure exacerbation, new onset atrial fibrillation and alcohol withdrawal. Heart failure responded well to diuretics treatment. You were evaluated by posting machine operator who did an echo showing reduced cardiac function to 30%. Atrial fibrillation was controlled with medications of metoprolol, digoxin and amiodarone which she will need to continue on at time of discharge. Alcohol withdrawal resolved during hospital stay as phenobarbital protocol was used to reduced to symptoms of withdrawal. Start Lasix and Entresto for heart failure Start amiodarone 400 mg twice daily for 2 weeks then 400 mg once daily. Start digoxin and metoprolol as prescribed To use Eliquis 5 mg twice daily as anticoagulation to reduce the risk of stroke. To follow-up with posting machine operator as outpatient for Holter monitor and repeat cardioversion in few weeks. Patient Instructions: Heart Failure (GEN), A-fib (Atrial Fibrillation) (GEN), Cardioversion (GEN) Discharge Date/Time: 07/11/21 14:36
--- NOTE | 2021-07-11 11:37 | MHC.CM.PN ---
pt dcd home no skilled servcies ordered by
--- NOTE | 2021-07-11 11:51 | P.PNCA_ITS ---
Subjective Subjective Date of Service: 07/11/21 Principal diagnosis: CHF, atrial fibrillation Interval history: Patient heart rate is slightly better control today. Tolerating her medications. No heart failure symptoms. Review of Systems Review of Systems Yes all other systems are reviewed and are negative Physical Exam Vital Signs: Last Vital Signs Temp 97.9 F 07/11/21 08:00 Pulse 86 07/11/21 08:00 Resp 14 07/11/21 08:00 BP 137/89 07/11/21 08:00 Pulse Ox 99 07/11/21 08:00 BMI result Body Mass Index 30.6 Const General: cooperative, comfortable, no acute distress, alert and awake Nutritional Appearance: overweight Orientation/consciousness: patient oriented x3 Neck Neck: Yes trachea midline, Yes supple and Yes no JVD Chest Chest palpation & inspection: normal inspection of the chest Resp Effort & Inspection: normal respiratory effort Auscultation: clear to auscultation bilaterally Cardio Jugular venous distension: no JVD Rhythm: abnormal rhythm irregularly irregular Heart sounds: S1 normal heart sound present, S2 normal heart sound present, no click, no gallops and no murmurs GI Auscultation: normal bowel sounds Skin General skin exam: no rashes or lesions noted Neuro General: patient oriented x3 and no focal motor deficits Extrem General: Yes no clubbing, cyanosis or edema Objective Labs and Meds Result diagrams: 07/09/21 06:50 07/11/21 06:28 Lab results: Laboratory Results - last 24 hr 07/11/21 07/11/21 06:28 06:28 Sodium 140 Potassium 5.1 Chloride 101 Carbon Dioxide 32 H Anion Gap 12 BUN 22 H Creatinine 0.98 Estim Creat Clear Calc 74.9 Estimated GFR 58 Random Glucose 96 Calcium 8.4 B-Natriuretic Peptide 331 H Progress Note: A&P Assessment and plan (1) Heart failure with reduced ejection fraction: Status: Acute Assessment and Plan: Heart failure with reduced ejection fraction, clinically euvolemic and well compensated. Secondary to significant LV systolic dysfunction question nonischemic versus ischemic. Will need ischemic workup as outpatient. Could be related to alcohol use versus tachycardia mediated related to atrial fibrillation. Continue current rate control regimen with metoprolol 50 mg b.i.d., digoxin 0.125 mg daily and amiodarone 400 mg b.i.d.. Also continue neurohormonal modulation with Entresto. Continue current diuretic regimen orally. Discussed with her the management of heart failure with daily weight monitoring and avoidance of salt loading and taking additional diuretics when needed. Complete abstinence from alcohol was discussed. Will follow-up as outpatient (2) New onset a-fib: Status: Acute Assessment and Plan: New onset atrial fibrillation failed to convert after JOSEFINA guided cardioversion. Currently on amiodarone loading. Rate is not better controlled on triple therapy. Will obtain Holter monitor in 1 weeks time. Obtain digoxin assay in 1 weeks time. Plan for cardioversion in 2 weeks time after proper loading with amiodarone. Will schedule this as outpatient. Continue full oral anticoagu lation Eliquis. Complete abstinence from alcohol was discussed again. Will set up for outpatient follow-up. Patient can be discharged home later today. Time Spent With Patient Time: Total time spent is greater than 50% in coordination of care (as documented) at patient's floor/unit and/or counseling patient: Progress Note: Quality Stroke Does the patient have a stroke diagnosis?: No Procedures Date of Service Date of Service: 07/11/21
[2021-07-11 11:53] VITALS: BP 114/71; PULSE 67; RESP 20; TEMP 37.1; O2SAT 98
--- NOTE | 2021-07-11 14:36 | PC.NURSE ---
IV AND TELEPACK REMOVED. EXTENSIVE EDUCATION PROVIDED. PATIENT VERBALIZES UNDERSTANDING.
== END 2021-07-11 14:36 | disposition home or self-care (01) | DRG 194 ==
LOC: HO.ED 11:50 → HO.EDOVER 13:34 → HO.IMC 07-07 03:10
PROVIDERS: Internal Medicine Cardiovascular Disease; Physician Assistant Medical; Admitting Provider Internal Medicine; Emergency Provider Emergency Medicine; Visit Provider Student in an Organized Health Care Education/Training Program
PROC: 5A2204Z Restoration of Cardiac Rhythm, Single (ICD-10-PCS; CPT 93312; principal; 2021-07-09 10:30)
PROC: 5A2204Z Restoration of Cardiac Rhythm, Single (ICD-10-PCS; 2021-07-09 10:30)
DX: I11.0 Hypertensive heart disease with heart failure (principal); I42.8 Other cardiomyopathies; J44.1 Chronic obstructive pulmonary disease with (acute) exacerbation; Z79.01 Long term (current) use of anticoagulants; F10.239 Alcohol dependence with withdrawal, unspecified; D50.9 Iron deficiency anemia, unspecified; F17.210 Nicotine dependence, cigarettes, uncomplicated; I07.1 Rheumatic tricuspid insufficiency; I48.91 Unspecified atrial fibrillation; Z96.643 Presence of artificial hip joint, bilateral; Z71.6 Tobacco abuse counseling; Z20.822 Contact with and (suspected) exposure to COVID-19; I50.23 Acute on chronic systolic (congestive) heart failure; Z79.899 Other long term (current) drug therapy
CPT/HCPCS: 36415; 71045; 71275; 80048; 80053; 83540; 83735; 83880; 84484; 85025; 85027; 85610; 85730; 87635; 92960; 93005; 93306; 93312; 93925; 93970; 94640; 96365; 96366; 96375; 99285; 99291; J1650; J1940; J2250; J2916; Q9967

== ENCOUNTER → 2021-07-30 07:36 | Outpatient (REF) | payer OTHER, SELFPAY ==
--- NOTE | ~2021-07-30 | NM_ITS ---
Lexiscan Myocardial perfusion study Indication: Congestive heart failure, anterior fibrillation, assess for coronary disease and ischemia Technique: The patient was brought in for a Lexiscan perfusion study on 07/30/2021 and was injected 0.4 mg of Lexiscan intravenously. Within a minute of this injection 25 mCi of sestamibi was given intravenously. Images were obtained using the SPECT gamma camera interlaced with the gating device. Images were obtained in supine position. Resting perfusion study was performed on 07/31/2021. Patient was administered 25 mCi of sestamibi intravenously at rest. Images were then obtained in supine position. Total DLP 139mGy-cm. Images were processed with the software and compared side to side in short axis, horizontal long axis and vertical long axis views. Findings: Raw acquisition reviewed. Arms by the patient's side. The stress perfusion study showed minimally reduced tracer uptake in the distal part of lateral wall. In the attenuation corrected images, there is minimally reduced uptake in the apical inferolateral wall. Otherwise no major abnormalities. The gated study shows diminished LV systolic function with calculated LVEF of 45%. LV cavity is dilated in size. The gated study shows globally reduced wall thickening and contraction of segments. Resting study shows minimally reduced tracer uptake in the apical part of inferolateral wall, but otherwise unremarkable. With CT attenuation correction, there is globally reduced uptake and hence likely all technical. Gating at rest reveals globally reduced wall motion with ejection fraction at 53%. The findings are consistent with no reversible defects. Small fixed apical lateral/inferolateral defect probably artifactual. NM/NM cardiolite stress test Impression: 1. Myocardial perfusion imaging study shows no clear evidence of any ischemia or infarction. Probably normal perfusion. 2. Gated LVEF is 46% during stress and 53% during rest. 3. Transient ischemic dilatation not present. EKG component of the test reported separately.
--- NOTE | 2021-07-30 07:43 | CA_ITS ---
Acquisition Time: 2021-07-30 08:11:03 Total Exercise Time: 00:02:00 Test Indications: AFIB NEW ONSET Medications: SEE CHART Protocol: LEXISCAN Max HR: 100 BPM 63% of Pred: 158 BPM Max BP: 148/080 mmHG Max Work Load: 1.6 METS Pharmacological stress test with Lexiscan injection, while walking slow on treadmill, without anginal symptoms, without arrythmia, with normotensive response to injection, with nondiagnostic EKG for ischemia. In recovery she reported lightheadedness that was treated with Aminophylline 75mg IVP to reverse Lexiscan with resolution of symptom. Nuclear images pending. Test reviewed with Dr Plummer. Referred By: Fredo Livingston Overread By: ASHLEY MICHAUD
== END ==
LOC: HO.CARD 07:36
PROVIDERS: PCP Nurse Practitioner Family; Visit Provider Internal Medicine Cardiovascular Disease
DX: I48.91 Unspecified atrial fibrillation (principal); I11.0 Hypertensive heart disease with heart failure; I50.20 Unspecified systolic (congestive) heart failure
CPT/HCPCS: 78452; 93017; A9500; J0280; J2785

== ENCOUNTER 2021-07-30 09:40 | Day surgery (SDC) | payer OTHER, SELFPAY ==
--- NOTE | 2021-07-29 09:46 | HO.ANESPROP2 ---
Documented by User: Leyla Negrete NP 07/29/21 09:50 HPI - Anesthesia Eval Consult details Narrative: 60yo F for Cardioversion Eliquis for afib +ETOH abuse 07/2021 [facility] admit with SOB. Found new onset afib, CHF. s/p JOSEFINA, failed cardioversion 07/09/21 with [facility] Past Medical History Medical History (Updated 07/25/21 @ 08:44 by Precious Cassidy RN) CHF exacerbation Heart failure with reduced ejection fraction History of cardioversion HTN (hypertension) New onset a-fib On anticoagulant therapy On beta reji at home Family History Family History Brother Cancer Father CAD (coronary artery disease) Surgical History Surgical History (Updated 07/25/21 @ 08:30 by Precious Cassidy RN) History of foot surgery History of Problems with Anesthesia: No Social History Social History Household Members: Children [facility] Do you presently have visiting nurse or other home services: No Unable to assess alcohol history related to: Unknown Alcohol intake: current Alcohol intake frequency: holidays/special occasions only Patient Tobacco Use Status: Current everyday Tobacco user Tobacco use type: Cigarette Cigarettes Per Day: 10 Years Smoked: 45 Smoked in Last 30 Days: Yes Use of substances other than those prescribed or required for medical reasons: No Are you DNR?: No Advance Directives: Yes Advance Directives on File: Yes Advance Directives Date on File: 07/07/21 service: No Meds Allergies Allergy/AdvReac Type Severity Reaction Status Date / Time No Known Allergies Allergy Verified 07/30/21 09:56 Exam Exam Date and Time: July 29, 2021 0946 Pertinent Lab Results Pertinent Lab Results: Laboratory Tests 07/09/21 07/11/21 06:50 06:28 WBC 14.4 H Hgb 13.8 Hct 44.9 Plt Count 525 H Sodium 140 Potassium 5.1 Chloride 101 Carbon Dioxide 32 H BUN 22 H Creatinine 0.98 Narrative Narrative: ECHO 07/2021 Conclusions: - Normal left ventricular cavity size.? There is normal left ? ? ventricular wall thickness.? The left ventricular systolic ? ? ? function is moderately decreased.? The visually estimated? ejection fraction is between 30-35%. ? - Mildly increased right ventricular cavity size.? There is mild to moderately decreased right ventricular systolic function. ? ? - There is mild aortic valve regurgitation.? - There is moderate to severe mitral valve regurgitation.? - There is moderate to severe tricuspid valve regurgitation. ? ? Moderately elevated right atrial pressure.? EKG 07/2021 Vent. Rate : 158 BPM ? ? Atrial Rate : 000 BPM ?? P-R Int : 000 ms? QRS Dur : 084 ms ? ? QT Int : 288 ms ? ? ? P-R-T Axes : 000 097 075 degrees ?? QTc Int : 467 ms ? Artifact in tracing Atrial fibrillation with rapid ventricular response Rightward axis cannot exclude old anterior infarct, but could be from body habitus and lead placement Abnormal ECG No previous ECGs available Assessment and Plan Assessment Anesthesia Assessment: Chart Reviewed Final Anesthetic Review History of Problems with Anesthesia: No Documented by User: Gaston Montano MD 07/30/21 09:57 [facility] Past Medical History Medical History (Updated 07/25/21 @ 08:44 by Precious Cassidy RN) CHF exacerbation Heart failure with reduced ejection fraction History of cardioversion HTN (hypertension) New onset a-fib On anticoagulant therapy On beta reji at home Family History Family History Brother Cancer Father CAD (coronary artery disease) Family history of problems with anesthesia: No Surgical History Surgical History (Updated 07/25/21 @ 08:30 by Precious Cassidy RN) History of foot surgery Social History Social History Household Members: Children [facility] Do you presently have visiting nurse or other home services: No Unable to assess alcohol history related to: Unknown Alcohol intake: current Alcohol intake frequency: holidays/special occasions only Patient Tobacco Use Status: Current everyday Tobacco user Tobacco use type: Cigarette Cigarettes Per Day: 10 Years Smoked: 45 Smoked in Last 30 Days: Yes Use of substances other than those prescribed or required for medical reasons: No Are you DNR?: No Advance Directives: Yes Advance Directives on File: Yes Advance Directives Date on File: 07/07/21 service: No Meds Allergies Allergy/AdvReac Type Severity Reaction Status Date / Time No Known Allergies Allergy Verified 07/30/21 09:56 Exam Airway Mallampati Class: II TM Dist: >3cm Neck ROM: Full Loose/Missing/Broken Teeth: Yes (Very poor dentition, numerous broken and missing teeth globally throughout the mouth) Heart: irreg irreg +s1s2 Lungs: Cta b/l Assessment and Plan Assessment Anesthesia Assessment: Anesthesia Plan Discussed Final Anesthetic Review Family History of Problems with Anesthesia: No NPO: Yes ASA Class: III Final Preanesthetic Review: No Changes in Pt Med Stat, Meds/Allgs Chart Reviewed, Consent Obtained/Reviewed and Anes Risks/Benef Reviewed Patient Risk: Intermediate Procedure Risk: Intermediate Assessment/Block/Sedation in SS: Assess/Block/Sedation-SS Anesthetic Plan Anesthetic Plan: GA and Agree w/ Assess. and Plan Disposition: Standard PACU
--- NOTE | 2021-07-30 | ECG_ITS ---
Test Reason : s/p cardioversion Blood Pressure : / mmHG Vent. Rate : 041 BPM Atrial Rate : 041 BPM P-R Int : 196 ms QRS Dur : 100 ms QT Int : 480 ms P-R-T Axes : 039 038 043 degrees QTc Int : 396 ms Marked sinus bradycardia Abnormal ECG When compared with ECG of 06-JUL-2021 08:23, Sinus rhythm has replaced Atrial fibrillation Vent. rate has decreased BY 117 BPM Borderline criteria for Anterior infarct are no longer Present Nonspecific T wave abnormality no longer evident in Lateral leads Referred By: Travis Plummer Electronically Signed By:Travis Plummer
[2021-07-30 09:53] VITALS: BMI 27.1
[2021-07-30 10:06] VITALS: BP 147/92; PULSE 84; RESP 16; TEMP 36.4; O2SAT 100
--- NOTE | 2021-07-30 10:07 | PC.NURSE ---
Patient arrived to [facility] with a PRN angio #22 in right AC. Per patient I just got a stress test, they put it in . Site asymptomatic, flushed well. #[address] anesthesia per Dr[address] Montano.
--- NOTE | 2021-07-30 10:17 | MHC.SHP ---
Pre-Procedural Eval Section A Date of Service: 07/30/21 The patient is an INPATIENT: No The History & Physical has been completed within 30 days and I have reviewed it.: Yes Section B Chief Complaint: afib Details of Present Illness: Afib. Here for cardioversion. Allergies: Allergies Allergy/AdvReac Type Severity Reaction Status Date / Time No Known Allergies Allergy Verified 07/30/21 09:56 Plan Diagnosis/Plan: Unchanged I have reviewed the history and physical and performed a pertinent physical examination on my patient. No changes have occurred unless specified.
[2021-07-30 10:42] VITALS: BP 112/55; PULSE 46; RESP 16; TEMP 36.6; O2SAT 100
--- NOTE | 2021-07-30 10:45 | HO.CARDIVERS ---
Cardioversion Procedure Note Cardioversion Date of Procedure: 07/30/2021 Ordering Provider: Travis Plummer Performing Provider: Travis Plummer Indication for Procedure: Afib Pre-Op Diagnosis: Afib Performed with Transesophageal Echo: No History: 60 female with Afib and cardiomyopathy. Here for cardioversion. Consent: Verbal and Written consent was obtained from the patient before starting. The patient was made aware of the risk of stroke, aspiration and failure of cardioversion. Procedure: After consent obtained, defib pads were attached and the patient was sedated by the anesthesia team. Once adequate sedation achieved, we gave single synchronized shock of 200 Joules. Patient reverted to sinus rhythm but was bradycardic in 40s. Complications: None Recommendations: Stop the Digoxin. Continue Amiodarone 200 mg daily. Decrease the Toprol XL to 50 mg once a day. Continue Eliquis without missing any doses.
[2021-07-30 10:57] VITALS: BP 126/69; PULSE 50; RESP 18; O2SAT 100
[2021-07-30 11:12] VITALS: BP 138/71; PULSE 48; RESP 18; TEMP 36.6; O2SAT 100
== END 2021-07-30 11:57 | disposition home or self-care (01) ==
PROVIDERS: Visit Provider Internal Medicine Cardiovascular Disease
PROC: 5A2204Z Restoration of Cardiac Rhythm, Single (ICD-10-PCS; principal; 2021-07-30 10:00)
DX: I48.91 Unspecified atrial fibrillation (principal); I11.0 Hypertensive heart disease with heart failure; I50.20 Unspecified systolic (congestive) heart failure; Z79.01 Long term (current) use of anticoagulants; Z79.899 Other long term (current) drug therapy; F17.210 Nicotine dependence, cigarettes, uncomplicated
CPT/HCPCS: 92960; 93005; J0330; J2370

== ENCOUNTER → 2021-08-07 07:12 | Outpatient (REF) | payer OTHER, SELFPAY ==
--- NOTE | 2021-08-07 07:17 | HM_ITS ---
Conclusion: 1. Patient was monitored for total period of 2 days and 23 hours 2. Baseline was normal sinus rhythm with average heart rate of 54 beats per minute 3. Frequent sinus bradycardia noted 4. No significant pauses noted 5. Occasional ectopy noted 6. No patient reported events MTDD
== END ==
LOC: HO.CARD 07:12
PROVIDERS: PCP Nurse Practitioner Family; Visit Provider Internal Medicine Cardiovascular Disease
DX: I48.91 Unspecified atrial fibrillation (principal); I11.0 Hypertensive heart disease with heart failure; I50.20 Unspecified systolic (congestive) heart failure
CPT/HCPCS: 93242

== ENCOUNTER → 2021-08-13 13:52 | Outpatient (BNVA) | payer OTHER, SELFPAY | PROVIDERS: PCP Nurse Practitioner Family; Visit Provider Internal Medicine Cardiovascular Disease | DX: I42.9 Cardiomyopathy, unspecified (principal); I48.0 Paroxysmal atrial fibrillation; I50.20 Unspecified systolic (congestive) heart failure; Z79.899 Other long term (current) drug therapy | CPT/HCPCS: 93005; 99212 ==

== ENCOUNTER 2021-09-29 10:51 | Outpatient (REF) | payer OTHER, SELFPAY ==
[2021-09-29 11:57] LABS: Hematocrit 38.4 % (37.0-47.0); Hemoglobin 12.2 g/dl (12.0-16.0); Mean Corpuscular HGB Conc 31.8 g/dl (31.0-35.0); Mean Corpuscular Hemoglobin 28.5 pg (27.0-33.0); Mean Corpuscular Volume 89.7 fL (80.0-98.0); Platelet Count 468 X10*3/uL (160-400); Red Blood Count 4.28 X10*6/uL (4.20-5.50); Red Cell Distribution Width 20.5 % (11.0-16.0); White Blood Count 12.3 X10*3/uL (4.8-10.8)
[2021-09-29 12:28] LABS: Iron 63 mcg/dL (30-160); Percent Iron Saturation 18 % (15-50); Total Iron Binding Capacity 359 mcg/dL (228-428); Unsaturated Iron Binding 296 ug/dL
[2021-09-29 12:52] LABS: Ferritin 107 ng/mL (10-250); TSH reflex Free T4 13.24 uIU/mL (0.32-4.0)
[2021-09-29 13:01] LABS: Folate 7.5 ng/mL (> or = 4.0); Vitamin B12 193 pg/mL (200-900)
[2021-09-29 13:25] LABS: Free T4 (Free Thyroxine) 0.79 ng/dL (0.71-1.85)
== END 2021-09-29 10:52 | disposition home or self-care (01) ==
LOC: HO.LAB 10:51
PROVIDERS: PCP Nurse Practitioner Family; Visit Provider Nurse Practitioner Family
DX: Z13.29 Encounter for screening for other suspected endocrine disorder (principal); Z76.89 Persons encountering health services in other specified circumstances
CPT/HCPCS: 36415; 82306; 82607; 82728; 82746; 83540; 84439; 84443; 85027

== ENCOUNTER 2021-11-13 10:37 | Outpatient (REF) | payer OTHER, SELFPAY ==
[2021-11-13 11:00] LABS: MANUAL DIFF FLAG NO
[2021-11-13 11:45] LABS: Basophils Absolute Auto 0.1 X10*3/uL (0.0-0.2); Basophils Percent Auto 0.4 % (0-2); Eosinophils Absolute Auto 0.2 X10*3/uL (0.0-0.4); Eosinophils Percent Auto 1.5 % (0-4); Hematocrit 36.3 % (37.0-47.0); Hemoglobin 11.4 g/dl (12.0-16.0); Imm Gran Abs Auto 0.07 X10*3/uL (0.00-0.03); Imm Gran Pct Auto 0.5 % (0.0-0.4); Lymphocytes Absolute Auto 3.3 X10*3/uL (1.2-4.9); Lymphocytes Percent Auto 25.4 % (20-40); Mean Corpuscular HGB Conc 31.4 g/dl (31.0-35.0); Mean Corpuscular Hemoglobin 30.2 pg (27.0-33.0); Mean Platelet Volume 9.1 fL (9.4-12.3); Monocytes Percent Auto 7.6 % (2-11); Neutrophils Absolute Auto 8.3 x10*3/uL (2.0-8.3); Neutrophils Percent Auto 64.6 % (45-73); Platelet Count 424 X10*3/uL (160-400); Red Blood Count 3.78 X10*6/uL (4.20-5.50); Red Cell Distribution Width 15.4 % (11.0-16.0); White Blood Count 12.9 X10*3/uL (4.8-10.8)
[2021-11-13 11:47] LABS: INTERNATIONAL NORM RATIO 1.4 (0.9-1.1); Prothrombin Time 16.7 SEC (10.0-13.1)
[2021-11-13 12:25] LABS: Anion Gap 18 (12-20); Blood Urea Nitrogen 20 mg/dL (9-16); Carbon Dioxide 25 mmol/L (22-29); Chloride 99 mmol/L (96-108); Estimated Glomerular Filt Rate 52; Glucose Random 87 mg/dL (60-115); Potassium 4.5 mmol/L (3.3-5.1); Sodium 137 mmol/L (135-145)
== END 2021-11-13 10:38 | disposition home or self-care (01) ==
LOC: HO.LAB 10:37
PROVIDERS: PCP Nurse Practitioner Family; Visit Provider Internal Medicine Cardiovascular Disease
DX: I48.91 Unspecified atrial fibrillation (principal)
CPT/HCPCS: 36415; 80048; 85025; 85610

== ENCOUNTER → 2021-11-17 08:22 | Outpatient (REF) | payer OTHER, SELFPAY ==
--- NOTE | 2021-11-17 08:40 | CA_ITS ---
Transthoracic Echocardiogram Patient (Last, First, Middle): Lo Dennison, Gender: Female Date of : 1960 Age: 61 Procedure Date: 11/17/2021 Procedure Type: Transthoracic Echocardiogram Location: OP Height: 177.8 cm Weight: 88.45 kg BSA: 2.06 m2 Heart Rate: 60 bpm BP: 125 / 80 mmHg Comic Writer: JIMENA Referring MD: Travis Plummer MD Symptoms: I50.20 - Unspecified systolic (congestive) heart failure Study Quality: Adequate Conclusions: - LV and RV function has normalized. - Limited echo Findings Left Ventricle Normal left ventricular size and systolic function. There is mildly increased left ventricular wall thickness. The visually estimated ejection fraction is between 55-60%. There is no evidence of regional wall motion abnormalities. Diastolic function is indeterminate on the basis of available data. Right Ventricle Normal right ventricular cavity size and systolic function. Atria Both atria are normal in size. Tricuspid Valve Normal tricuspid valve structure and function. There is trace tricuspid valve regurgitation. Tricuspid regurgitation envelope is inadequate for calculation of right ventricular systolic pressure. Normal right atrial pressure. Great Vessels The aorta was not well visualized. The pulmonary artery was not well visualized. Venous The inferior vena cava is normal in size and collapses greater than 50% with inspiration. Pericardium/Pleural There is no evidence of pericardial effusion. Prior Study Comparison Changes noted compared to prior study dated: 07/07/2021. EF has normalized. Measurements 2D Linear Measurements IVSd: 1.00 0.6-0.9/0.6-1.0 cm LVIDd: 4.71 3.9-5.3/4.2-5.9 cm LVIDd Index: 2.29 2.4-3.2/2.2-3.1 cm/m2 LVIDs: 3.19 2.0-3.6 cm LVPWd: 1.12 0.7-1.1 cm Ao Root: 3.20 2.1-3.5 cm LA Diam: 4.40 2.7-3.8/3.0-4.0 cm LAIDs Index: 2.14 1.5-2.3 cm/m2 LV Mass: 222.69 67-162/88-224 g LV Mass Index: 108.10 43-95/49-115 g/m2 LVOT Diam: 2.10 3.0+(-)1.3 cm 2D Systolic Function EF 4C: 52.30 >55% EF 2C: 54.30 >55% EF BiP: 53.30 >55% Mitral Valve E'Lateral: 9.14 E'Medial: 6.31 LVOT LVOT Diam: 2.10 LVOT Area: 3.46 Diastolic Function E'Medial: 6.31 E' Laterial: 9.14 Right Ventricle TAPSE (mm): 24.30 TVS' Keshav: 10.90 Great Vessels Aorta Ao Root-2D: 3.20 2.0-3.7 cm Updated in Other Vendor System with Status of Final Travis Plummer MD electronically signed on 11/17/2021 4:23:13 PM with status of Final
== END ==
LOC: HO.CARD 08:22
PROVIDERS: PCP Nurse Practitioner Family; Visit Provider Internal Medicine Cardiovascular Disease
DX: I50.20 Unspecified systolic (congestive) heart failure (principal)
CPT/HCPCS: 93308

== ENCOUNTER → 2021-11-26 10:24 | Outpatient (BNVA) | payer OTHER, SELFPAY | PROVIDERS: PCP Nurse Practitioner Family; Referring Provider Nurse Practitioner Family; Visit Provider Internal Medicine Cardiovascular Disease | DX: I48.0 Paroxysmal atrial fibrillation (principal); I11.0 Hypertensive heart disease with heart failure; I50.9 Heart failure, unspecified; Z79.01 Long term (current) use of anticoagulants; Z79.899 Other long term (current) drug therapy | CPT/HCPCS: 93005; 99212 ==

== ENCOUNTER 2022-01-12 10:51 | Outpatient (REF) | payer OTHER, SELFPAY ==
[2022-01-12 11:04] LABS: MANUAL DIFF FLAG NO
[2022-01-12 11:35] LABS: Basophils Absolute Auto 0.1 X10*3/uL (0.0-0.2); Basophils Percent Auto 0.3 % (0-2); Eosinophils Absolute Auto 0.1 X10*3/uL (0.0-0.4); Eosinophils Percent Auto 0.9 % (0-4); Hematocrit 34.8 % (37.0-47.0); Imm Gran Abs Auto 0.08 X10*3/uL (0.00-0.03); Imm Gran Pct Auto 0.5 % (0.0-0.4); Lymphocytes Absolute Auto 3.4 X10*3/uL (1.2-4.9); Lymphocytes Percent Auto 23.1 % (20-40); Mean Corpuscular HGB Conc 31.6 g/dl (31.0-35.0); Mean Corpuscular Hemoglobin 30.5 pg (27.0-33.0); Mean Corpuscular Volume 96.4 fL (80.0-98.0); Mean Platelet Volume 8.4 fL (9.4-12.3); Monocytes Absolute Auto 1.1 X10*3/uL (0.1-1.2); Monocytes Percent Auto 7.5 % (2-11); Neutrophils Percent Auto 67.7 % (45-73); Platelet Count 561 X10*3/uL (160-400); Red Blood Count 3.61 X10*6/uL (4.20-5.50); Red Cell Distribution Width 13.5 % (11.0-16.0); White Blood Count 14.8 X10*3/uL (4.8-10.8)
[2022-01-12 12:09] LABS: Alanine Aminotransferase 9 U/L (0-31); Albumin Level 3.7 g/dL (3.5-5.0); Alkaline Phosphatase 93 U/L (39-117); Anion Gap 18 (12-20); Aspartate Amino Transferase 10 U/L (5-31); Bilirubin Total 0.3 mg/dL (0.0-1.0); Blood Urea Nitrogen 22 mg/dL (9-16); Calcium 9.4 mg/dL (8.4-10.2); Carbon Dioxide 28 mmol/L (22-29); Chloride 97 mmol/L (96-108); Estimated Glomerular Filt Rate 45; Glucose Random 77 mg/dL (60-115); Potassium 5.1 mmol/L (3.3-5.1); Sodium 138 mmol/L (135-145); Total Protein 6.7 g/dL (6.5-8.0)
[2022-01-12 12:32] LABS: Vitamin D 25-OH Total 23.7 ng/mL (>30)
[2022-01-12 13:00] LABS: Folate 5.6 ng/mL (> or = 4.0); Vitamin B12 849 pg/mL (200-900)
== END 2022-01-12 10:52 | disposition home or self-care (01) ==
LOC: HO.LAB 10:51
PROVIDERS: PCP Nurse Practitioner Family; Visit Provider Nurse Practitioner Family
DX: I10 Essential (primary) hypertension (principal); R79.89 Other specified abnormal findings of blood chemistry; E53.8 Deficiency of other specified B group vitamins
CPT/HCPCS: 36415; 80053; 82306; 82607; 82746; 85025

== ENCOUNTER 2022-03-16 10:31 | Outpatient (REF) | payer OTHER, SELFPAY | END 2022-03-16 10:32 | disposition home or self-care (01) | LOC: HO.LAB 10:31 | PROVIDERS: Visit Provider Nurse Practitioner Family | DX: L02.416 Cutaneous abscess of left lower limb (principal) | CPT/HCPCS: 87070; 87147; 87205 ==

== ENCOUNTER → 2022-04-13 11:06 | Outpatient (BNVA) | payer OTHER, SELFPAY | PROVIDERS: PCP Nurse Practitioner Family; Referring Provider Nurse Practitioner Family; Visit Provider Internal Medicine Cardiovascular Disease | DX: I50.9 Heart failure, unspecified (principal); I10 Essential (primary) hypertension; D64.9 Anemia, unspecified; D75.839 Thrombocytosis, unspecified | CPT/HCPCS: 93005; 99212 ==

== ENCOUNTER 2023-06-09 09:55 | Outpatient (AMB) | payer OTHER, SELFPAY ==
[2023-06-09 09:58] VITALS: BP 130/74; PULSE 96; BMI 30.4
--- NOTE | 2023-06-09 09:58 | MHC.OFFVIS ---
Intake Vital Signs 06/09/23 09:58 Height 5 ft 10 in Weight 211 lb 10.3 oz BMI 30.4 BP 130/74 Blood Pressure Location Lt brachial Position Sitting Pulse 96 Intake Visit Reasons: follow up/ medications Intake Note: pt its here f/up on medications/ pt states that she its doing fine. 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 Technologist Required: No Accompanied by: Self / Same As Patient Allergies No Known Allergies Allergy (Verified 04/13/22 11:15) Medication List - Last Reconciled 06/09/23 by Travis Plummer MD acetaminophen (Tylenol) 650 mg PO Q6H PRN apixaban (Eliquis) 5 mg PO BID diclofenac sodium 1% (Arthritis Pain (diclofenac)) 2 grams topical QID PRN furosemide 40 mg PO DAILY levothyroxine 25 mcg PO DAILY metoprolol succinate ER 25 mg PO DAILY sacubitril-valsartan 49-51 mg (Entresto) 1 tab PO BID HPI HPI Comments History of Present Illness Details Pleasant 62-year-old female with background 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 She underwent cardioversion and was started on amiodarone. With guideline directed medical therapy and abstinence from alcohol her ejection fraction has improved back to normal. She underwent ablation by Dr. Nielsen on 11/20/2021. She has been doing well. She has no chest pain shortness of breath. Taking medications regularly. Doing well. She was completely abstinent of alcohol in the past but on follow-up today she is saying that she has been drinking up to 2 days a month. She drinks whiskey. She also continues to smoke half a pack per day. Overall clinically stable and has no significant symptoms. 06/09/2023: She returns for follow-up. She has no shortness of breath but has been experiencing some palpitations up to 2 times a week lasting for few minutes. She has been drinking whiskey 2 times a week. She smokes half pack per day and has not cut back significantly on smoking. Taking medications regularly. [facility] Medical History CHF exacerbation Encounter to establish care Heart failure with reduced ejection fraction History of cardioversion HTN (hypertension) New onset a-fib On anticoagulant therapy On beta reji at home Screening for hypothyroidism Surgical History H/O cardiac radiofrequency ablation History of hip replacement, total History of foot surgery Family History Brother Cancer Father CAD (coronary artery disease) Social History Household Members: Children [facility] Do you presently have visiting nurse or other home services: No Alcohol intake: current Alcohol intake frequency: a few times a month Patient Tobacco Use Status: Current everyday Tobacco user Tobacco use type: Cigarette Cigarette Packs Per Day: 0.5 Cigarettes Per Day: 10 Years Smoked: 45 +/- Advance Directives Date on File: 07/07/21 service: No Current occupational status: employed Cognitive needs: Yes Hearing needs: No Vision needs: Yes Review of Systems Const Denies chills, Denies fatigue, Denies fever(s), Denies frequent falls, Denies weakness, Denies weight gain and Denies weight loss ENT Denies dizziness Card Denies chest pain, Denies leg edema, Denies lightheadedness, Denies palpitations, Denies dyspnea and Denies dyspnea on exertion Resp Denies cough, Denies dyspnea and Denies dyspnea on exertion GI Denies hematochezia Musc Denies abnormal gait, Denies muscle weakness, Denies numbness, Denies radiating pain into limb and Denies tingling Neuro Denies abnormal gait, Denies dizziness, Denies frequent falls, Denies numbness, Denies tingling and Denies weakness Endo Denies fatigue and Denies palpitations Physical Exam Vital Signs: Last Vital Signs Pulse 96 06/09/23 09:58 BP 130/74 06/09/23 09:58 BMI result Body Mass Index 30.4 GENERAL APPEARANCE: in no acute distress, pleasant. NECK: no carotid bruit, no jugular venous distention. SKIN: no suspicious lesions, warm and dry. HEART: Systolic murmur aortic area with preserved 2nd heart sound, regular rate and rhythm. LUNGS: clear to auscultation bilaterally. ABDOMEN: soft, nontender. EXTREMITIES: no edema. PERIPHERAL PULSES: equal. NEUROLOGIC: No gross deficits, AAO X 3 Office Procedures EKG Details: Sinus rhythm 96 beats per minute, premature atrial complexes, normal axis, QTC 424 milliseconds. [id number], Complete Assessment & Plan Assessment & Plan (1) Chronic heart failure: Code(s): I50.9 - Heart failure, unspecified (2) PAF (paroxysmal atrial fibrillation): Code(s): I48.0 - Paroxysmal atrial fibrillation (3) HTN (hypertension): Code(s): I10 - Essential (primary) hypertension Plan Pleasant 62 year female who had cardiomyopathy in the setting of alcohol use in atrial fibrillation with rapid ventricular response. She was cardioverted and eventually underwent ablation and was taken off the amiodarone. She is taking apixaban regularly. She is on Entresto, metoprolol succinate and Lasix 40 mg daily. She is experiencing some palpitations. I have once again cautioned her about using alcohol because she had issues with atrial fibrillation before due to alcoholism and that led to cardiomyopathy. Increasing metoprolol succinate to 25 mg twice a day. We will arrange 14 day Holter monitor. We will arrange echocardiography to reassess the ejection fraction. Thank you for allowing me to participate in the care of your patient. Please feel free to contact me if you have any questions. Orders: Orders CA echo transthorac w con Today I50.9 - Heart failure, unspecified ECG 14 day holter monitor Today I48.0 - Paroxysmal atrial fibrillation Medications: Changed From metoprolol succinate ER 25 mg PO DAILY 90 tabs 3RF I50.9 - Heart failure, unspecified To metoprolol succinate ER 25 mg PO BID 180 tabs 3RF I50.9 - Heart failure, unspecified Coding Level of Care Code Est Pt Level 4 (03612) Diagnoses Chronic heart failure I50.9 PAF (paroxysmal atrial fibrillation) I48.0 HTN (hypertension) I10 CPT Codes EKG - CPT: 53420-[id number], Complete ([id number])
== END 2023-06-09 10:22 | disposition home or self-care (01) ==
PROVIDERS: PCP Nurse Practitioner Family; Visit Provider Internal Medicine Cardiovascular Disease
DX: I50.9 Heart failure, unspecified (principal); I48.0 Paroxysmal atrial fibrillation; I10 Essential (primary) hypertension
CPT/HCPCS: 93010; 99214

== ENCOUNTER → 2023-06-09 09:55 | Outpatient (BNVA) | payer OTHER, SELFPAY | PROVIDERS: PCP Nurse Practitioner Family; Visit Provider Internal Medicine Cardiovascular Disease | DX: I11.0 Hypertensive heart disease with heart failure (principal); I50.9 Heart failure, unspecified; I48.0 Paroxysmal atrial fibrillation | CPT/HCPCS: 93005; 99212 ==

== ENCOUNTER → 2023-09-03 08:54 | Outpatient (REF) | payer OTHER, SELFPAY ==
--- NOTE | 2023-09-03 09:05 | CA_ITS ---
Transthoracic Echocardiogram Patient (Last, First, Middle): Lo Dennison, Gender: Female Date of : 1960 Age: 63 Procedure Date: 09/03/2023 Procedure Type: Transthoracic Echocardiogram Location: OP Height: 177.8 cm Weight: 99.79 kg BSA: 2.17 m2 Heart Rate: 73 bpm BP: 126 / 70 mmHg Label Printer: TO Referring MD: Travis Plummer MD Music Teacher: Fredo Livingston MD Symptoms: I50.9 - Heart failure, unspecified Study Quality: Adequate ECG Rhythm: Sinus Conclusions: - 1. Normal LV ejection fraction of 55-60% 2. Mildly dilated left atrium 3. Mild aortic regurgitation 4. Mildly dilated ascending aorta at 4.1 cm 5. No pericardial effusion Findings Left Ventricle Normal left ventricular size, thickness, and systolic function. The visually estimated ejection fraction is between 55-60%. Spectral Doppler is indicative of a normal filling pattern. Peak GLS is -19.9%, within normal limits. Right Ventricle Normal right ventricular cavity size and systolic function. Atria The left atrium is mildly dilated. There is no evidence of interatrial shunt. The right atrium is normal in size. Aortic Valve Normal aortic valve structure and function. There is no aortic valve stenosis. There is mild aortic valve regurgitation. Mitral Valve Normal mitral valve structure and function. There is trace mitral valve regurgitation. There is no mitral valve stenosis. Pulmonic Valve The pulmonic valve is likely normal. Tricuspid Valve Normal tricuspid valve structure. Tricuspid regurgitation envelope is inadequate for calculation of right ventricular systolic pressure. Normal right atrial pressure. Great Vessels The pulmonary artery was not well visualized. There is mild dilatation of the ascending aorta measuring 4.10 cm. Venous The inferior vena cava is normal in size and collapses greater than 50% with inspiration. Pericardium/Pleural There is no evidence of pericardial effusion. Prior Study Comparison No significant change compared to prior study dated: 11/17/2021. Measurements 2D Linear Measurements IVSd: 1.12 0.6-0.9/0.6-1.0 cm LVIDd: 4.23 3.9-5.3/4.2-5.9 cm LVIDd Index: 1.95 2.4-3.2/2.2-3.1 cm/m2 LVIDs: 2.96 2.0-3.6 cm LVPWd: 0.89 0.7-1.1 cm LA Diam: 4.20 2.7-3.8/3.0-4.0 cm LAIDs Index: 1.94 1.5-2.3 cm/m2 LV Mass: 173.85 67-162/88-224 g LV Mass Index: 80.12 43-95/49-115 g/m2 LVOT Diam: 2.20 3.0+(-)1.3 cm 2D Systolic Function EF 4C: 60.00 >55% EF 2C: 57.40 >55% EF BiP: 57.90 >55% Mitral Valve MV Pk E: 0.61 MV PK A: 0.54 MV Decel Time: 193.00 E/A: 1.10 E'Lateral: 7.51 E'Medial: 5.00 E/E' Med: 12.20 E/E' Lat: 8.10 PHT: 56.00 MVA PHT: 3.93 Decel [place]: 3.15 Aortic Valve AoV Pk Keshav: 1.79 AoV Mn Keshav: 1.22 AoV VTI: 0.34 AoV Pk Grad: 13.00 Aov Mn Grad: 7.00 MARILU Cont.VTI: 3.12 AI Pk Keshav: 4.19 AI [place]: 1.71 LVOT LVOT Pk Keshav: 1.75 LVOT Mn Keshav: 0.94 LVOT VTI: 0.28 LVOT Pk Grad: 12.00 LVOT Mn Grad: 4.00 LVOT Diam: 2.20 LVOT Area: 3.80 Diastolic Function MV Pk E: 0.61 MV Pk A: 0.54 E/A: 1.10 E'Medial: 5.00 E/E' Med: 12.20 E' Laterial: 7.51 E/E' Lat: 8.10 Right Ventricle TAPSE (mm): 26.70 TVS' Keshav: 12.90 Tricuspid Valve RA Press: 3.00 Great Vessels Aorta Sinus of Valsalva: 3.60 2.0-3.5 cm Ao Asc: 4.10 2.1-3.4 cm Ao Arch: 2.90 Updated in Other Vendor System with Status of Final Fredo Livingston MD electronically signed on 09/03/2023 3:04:44 PM with status of Final
--- NOTE | 2023-09-03 09:05 | HM_ITS ---
* Total monitoring time 2 weeks. * Underlying rhythm is sinus with an average rate of 67/Min. * Occasional supraventricular ectopy. Very brief runs noted. Longest 19 beats. Max rate 191/Min. * Occasional ventricular ectopy. 3 short runs, longest 3 beats. * No significant pauses or AV blocks. * No patient markers or diary events. MTDD
== END ==
LOC: HO.CARD 08:54
PROVIDERS: Visit Provider Internal Medicine Cardiovascular Disease
DX: I50.9 Heart failure, unspecified (principal); I48.0 Paroxysmal atrial fibrillation
CPT/HCPCS: 93246; 93306; 93356

== ENCOUNTER → 2023-09-03 09:05 | Outpatient (BNV) | payer MEDICARE, OTHER, SELFPAY | PROVIDERS: Visit Provider Internal Medicine Cardiovascular Disease | DX: I47.10 Supraventricular tachycardia, unspecified (principal); I49.3 Ventricular premature depolarization | CPT/HCPCS: 93248; 93306; 93356 ==

== ENCOUNTER 2023-12-13 09:12 | Outpatient (AMB) | payer MEDICARE, OTHER, SELFPAY ==
[2023-12-13 09:37] VITALS: BP 150/82; PULSE 65; BMI 29.9
--- NOTE | 2023-12-13 09:37 | MHC.OFFVIS ---
Vital Signs 12/13/23 09:37 Height 5 ft 10 in Weight 208 lb 1.862 oz BMI 29.9 BP 150/82 H Blood Pressure Location Lt brachial Position Sitting Pulse 65 Pulse Source Pulse Oximeter Intake Visit Reasons: r/s 10/20/23 3 mos f/u s/p echo/holter Outpatient Coordinator Required: No Allergies No Known Allergies Allergy (Verified 12/13/23 09:39) Medication List - Last Reconciled 12/13/23 by Travis Plummer MD acetaminophen (Tylenol) 650 mg PO Q6H PRN apixaban (Eliquis) 5 mg PO BID diclofenac sodium 1% (Arthritis Pain (diclofenac)) 2 grams topical QID PRN furosemide 40 mg PO DAILY metoprolol succinate ER 25 mg PO BID sacubitril-valsartan 49-51 mg (Entresto) 1 tab PO BID HPI Comments Details: Pleasant 63-year-old female with background 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 She underwent cardioversion and was started on amiodarone. With guideline directed medical therapy and abstinence from alcohol her ejection fraction has improved back to normal. She underwent ablation by Dr. Nielsen on 11/20/2021. She has been doing well. She has no chest pain shortness of breath. Taking medications regularly. Doing well. She was completely abstinent of alcohol in the past but on follow-up today she is saying that she has been drinking up to 2 days a month. She drinks whiskey. She also continues to smoke half a pack per day. Overall clinically stable and has no significant symptoms. 06/09/2023: She returns for follow-up. She has no shortness of breath but has been experiencing some palpitations up to 2 times a week lasting for few minutes. She has been drinking whiskey 2 times a week. She smokes half pack per day and has not cut back significantly on smoking. Taking medications regularly. 12/13/23: She is here for follow-up. She has been drinking 2 times a week 3 drinks of whiskey. Recent echocardiography has shown normal LVEF. No atrial fibrillation on Holter monitoring. Blood pressure is elevated today. She said she ran out of medications due to insurance issues 1 month ago but has been taking medications regularly for 1 month now. [facility] Medical History CHF exacerbation Encounter to establish care Heart failure with reduced ejection fraction History of cardioversion HTN (hypertension) New onset a-fib On anticoagulant therapy On beta reji at home Screening for hypothyroidism Surgical History H/O cardiac radiofrequency ablation History of hip replacement, total History of foot surgery Family History Brother Cancer Father CAD (coronary artery disease) Social History Household Members: Children [facility] Do you presently have visiting nurse or other home services: No Alcohol intake: current Alcohol intake frequency: a few times a month Patient Tobacco Use Status: Current everyday Tobacco user Tobacco use type: Cigarette Cigarette Packs Per Day: 0.5 Cigarettes Per Day: 10 Years Smoked: 45 +/- Advance Directives Date on File: 07/07/21 service: No Current occupational status: employed Cognitive needs: Yes Hearing needs: No Vision needs: Yes Review of Systems ENT Reports dizziness Card Denies chest pain, Denies chest pain at rest, Denies chest pain with activity, Denies rapid heart rate, Denies pedal edema, Denies edema, Denies leg edema, Denies lightheadedness, Denies palpitations, Denies dyspnea, Denies dyspnea on exertion and Denies orthopnea Resp Denies cough, Denies dyspnea and Denies dyspnea on exertion GI Denies hematochezia and Denies change in stool character Musc Denies abnormal gait, Reports limited range of motion, Reports muscle cramps, Denies muscle weakness, Denies numbness, Denies radiating pain into limb, Denies stiffness and Denies tingling Neuro Denies abnormal gait, Reports dizziness, Denies numbness and Denies tingling Endo Denies palpitations Physical Exam Vital Signs: Last Vital Signs Pulse 65 12/13/23 09:37 BP 150/82 H 12/13/23 09:37 BMI result Body Mass Index 29.9 GENERAL APPEARANCE: in no acute distress, pleasant. NECK: no carotid bruit, no jugular venous distention. SKIN: no suspicious lesions, warm and dry. HEART: Systolic murmur aortic area with preserved 2nd heart sound, regular rate and rhythm. LUNGS: clear to auscultation bilaterally. ABDOMEN: soft, nontender. EXTREMITIES: no edema. PERIPHERAL PULSES: equal. NEUROLOGIC: No gross deficits, AAO X 3 Assessment & Plan Assessment & Plan (1) Chronic heart failure: Code(s): I50.9 - Heart failure, unspecified Category: Medical (2) PAF (paroxysmal atrial fibrillation): Code(s): I48.0 - Paroxysmal atrial fibrillation Category: Medical (3) HTN (hypertension): Code(s): I10 - Essential (primary) hypertension Category: Medical Plan Pleasant 63 year female who had cardiomyopathy in the setting of alcohol use in atrial fibrillation with rapid ventricular response. She was cardioverted and eventually underwent ablation and was taken off the amiodarone. She is taking apixaban regularly. She is on Entresto, metoprolol succinate and Lasix 40 mg daily. She is clinically stable. Blood pressure is little elevated and I have advised him to decrease the Entresto dose and I am sending a new script for that. Echocardiography showed normal biventricular function. No atrial fibrillation on the Holter monitor. I have advised her to be careful with alcohol intake. She is seriously looking into cutting back and stopping completely. Thank you for allowing me to participate in the care of your patient. Please feel free to contact me if you have any questions. Medications: New sacubitril-valsartan 97-103 mg 1 tab PO BID 120 tabs 3RF Discontinued sacubitril-valsartan 49-51 mg (Entresto) Discontinued Reason: Doctor's Order 1 tab PO BID 180 tabs 3RF I50.20 - Unspecified systolic (congestive) heart failure Coding Level of Care Code Est Pt Level 4 (53704) Complex EM visit Add On G2211 Diagnoses Chronic heart failure I50.9 PAF (paroxysmal atrial fibrillation) I48.0 HTN (hypertension) I10
== END 2023-12-13 10:00 | disposition home or self-care (01) ==
PROVIDERS: Visit Provider Internal Medicine Cardiovascular Disease
DX: I50.9 Heart failure, unspecified (principal); I48.0 Paroxysmal atrial fibrillation; I10 Essential (primary) hypertension
CPT/HCPCS: 99214

== ENCOUNTER → 2023-12-13 09:12 | Outpatient (BNVA) | payer MEDICARE, OTHER, SELFPAY | PROVIDERS: Visit Provider Internal Medicine Cardiovascular Disease | DX: I11.0 Hypertensive heart disease with heart failure (principal); I50.9 Heart failure, unspecified; I48.0 Paroxysmal atrial fibrillation; Z79.01 Long term (current) use of anticoagulants; Z79.899 Other long term (current) drug therapy | CPT/HCPCS: 99212 ==

== ENCOUNTER 2024-03-02 09:45 | Outpatient (AMB) | payer MEDICARE, OTHER, SELFPAY ==
--- NOTE | 2024-03-02 10:02 | A.OFFPC_ITS ---
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 ?? Prior PCP:?Amanda Silvestre Last office visit/CPE:? 2 yrs Acute issue(s):? Estcare ?? PMHx:? afib, Heart failure, SurgHx:? Bilat hip replacement FHx:? Dad: arrhytmia, Syncope, Sleep apnea. Mom: Arthritis. Brother: Prostate CA. Brother: Brain CA. SocHx:? Smokes <1ppd. EtOH: 3 dr 3 days a week. KJ daily. No ther drugs PFSH Medical History Screening for hypothyroidism Encounter to establish care On anticoagulant therapy On beta reji at home History of cardioversion Heart failure with reduced ejection fraction CHF exacerbation New onset a-fib HTN (hypertension) Surgical History H/O cardiac radiofrequency ablation History of hip replacement, total History of foot surgery Family History Brother Cancer Father CAD (coronary artery disease) Social History Household Members: Children Housing: Condominium Do you presently have visiting nurse or other home services: No Alcohol intake: current Alcohol intake frequency: a few times a month Patient Tobacco Use Status: Current everyday Tobacco user Tobacco use type: Cigarette Cigarette Packs Per Day: 0.5 Cigarettes Per Day: 10 Years Smoked: 45 +/- e-Cigarette/Vaping Use: Never Used Advance Directives Date on File: 07/07/21 service: No Current occupational status: employed Cognitive needs: Yes Hearing needs: No Vision needs: Yes Questionnaire PHQ-9 Over the last 2 weeks, how often have you been bothered by any of the following problems? 1. Little interest or pleasure in doing things: not at all 2. Feeling down, depressed, or hopeless: not at all 3. Trouble falling or staying asleep, or sleeping too much: not at all 4. Feeling tired or having little energy: nearly every day 5. Poor appetite or overeating: not at all 6. Feeling bad about yourself - or that you are a failure or have let yourself or your family down: not at all 7. Trouble concentrating on things, such as reading the newspaper or watching television: not at all 8. Moving or speaking so slowly that other people could have noticed. Or the opposite - being so fidgety or restless that you have been moving around a lot more than usual: not at all 9. Thoughts that you would be better off or of hurting yourself in some way: not at all Total score: 3 Depression Screening Interpretation: Negative Depression Screening Done: Yes 35707 - PHQ-9 Billing: Yes Source: Developed by Drs. Bharathi Francis, Corrine Caldwell, Suleiman Kathleen and colleagues, with an educational javed from [employer]. Thrive Questionnaire Date Thrive assessed: 03/02/24 I am a: Patient What is your living situation today?: I have a steady place to live Within the past 12 months, did the food you bought not last and you didn't have the money to get more?: Sometimes True Within the past 12 months, did you worry whether your food would run out before you got money to buy more?: Sometimes True Do you have trouble paying for medicines?: Yes Do you have trouble getting transportation to medical appointments?: No Do you have trouble paying your heating and electricity bill?: No Do you have trouble taking care of your child, family member or friend?: No Do you have trouble with day-to-day activities such as bathing, preparing meals, shopping, managing finances, etc.?: Yes Are you currently unemployed and looking for a job?: No Are you interested in more education?: No Please select the resources that you would like help with: Paying for medicine Currently or been in a relationship where the following occur: No concerns reported THRIVE Score: 2 AUDIT C Alcohol Use Questionnaire (AUDIT-C) 1. How often do you have a drink containing alcohol?: 2-3 times a week 2. How many drinks containing alcohol do you have on a typical day when you are drinking?: 3 or 4 3. How often do you have six or more drinks on one occasion?: Less than monthly Total Score: 5 HUY-7 AMB Questionnaire HUY-7 Date HUY - 7 assessed: 03/02/24 Feeling nervous, anxious, or on edge: 0 = Not at all Not being able to stop or control worryin = Not at all Worrying too much about different things: 1 = Several days Trouble relaxin = Several days Being so restless that it is hard to sit still: 0 = Not at all Becoming easily annoyed or irritable: 0 = Not at all Feeling afraid as if something awful might happen: 0 = Not at all Total HUY-7 score (0-4 normal; 5-9 mild; 10-14 moderate; 15-21 severe): 2 Source: Developed by Drs. Bharathi Francis, Corrine Caldwell, Suleiman Kathleen and colleagues, with an educational javed from [employer]. Review of Systems Const Denies chills, Denies fatigue, Denies fever(s), Denies headache(s) and Denies weakness ENT Denies dizziness and Denies headache(s) Card Denies chest pain, Denies lightheadedness, Denies dyspnea and Denies other (Palpitations) Resp Denies cough, Denies dyspnea, Denies wheezing and Denies other ( shortness of breath) Musc Denies numbness and Denies tingling Neuro Denies dizziness, Denies headache(s), Denies numbness, Denies tingling, Denies paresthesias and Denies weakness Psych Denies anxiety and Denies depression Endo Denies fatigue Aller/Immun Denies wheezing Physical exam (Primary Care) Vital Signs: Last Vital Signs Temp 97.2 F 03/02/24 10:09 Pulse 68 03/02/24 10:09 Resp 14 03/02/24 10:09 BP 130/70 03/02/24 10:09 Pulse Ox 98 03/02/24 10:09 Oxygen Delivery Method Room Air 03/02/24 10:09 BMI result Body Mass Index 30.0 Tobacco/Smoking Status: Tobacco use Status Tobacco use date assessed 03/02/24 03/02/24 10:09 Patient Tobacco Use Status Current everyday Tobacco 03/02/24 10:09 Tobacco use type Cigarette 03/02/24 10:09 e-Cigarette/Vaping Use Never Used 03/02/24 10:09 PHQ-9: PHQ-9 Score PHQ-9: Total score 3 03/02/24 11:05 Depression Screening Interpretation: Negative Thrive Assessment: Date of Thrive Assessment Date Thrive assessed 03/02/24 03/02/24 10:09 Currently or been in a relationship where the following occur: No concerns reported Const General: no acute distress and well developed Nutritional Appearance: well nourished Orientation/consciousness: patient oriented x3 HENMT Head: Yes normocephalic and Yes atraumatic Eyes General: appearance normal, both eyes and all related structures Pupils: Equal, round and reactive pupils present EOM: EOMs intact bilaterally Resp Other: Secretions, diminished breath sounds Effort & Inspection: normal respiratory effort Auscultation: clear to auscultation bilaterally Cardio Rate: regular rate Rhythm: regular rhythm Heart sounds: S1 normal heart sound present, S2 normal heart sound present, no gallops, no murmurs and no rubs Neuro General: patient oriented x3 and gait normal Cranial nerves: Yes Equal, round and reactive pupils present Psych Affect: normal affect Coding Level of Care Code New Pt Level 4 (20673) Diagnoses CKD (chronic kidney disease) stage 3, GFR 30-59 ml/min N18.30 HTN (hypertension) I10 PAF (paroxysmal atrial fibrillation) I48.0 Knee pain M25.569 Smoker F17.200 Anemia D64.9 Elevated TSH R79.89 Chronic heart failure I50.9 Abnormal breath sounds R06.89 Laboratory exam ordered as part of routine general medical examination Z00.00 Additional Codes PHQ-9 - 86364 - PHQ-9 Billing: Yes ([id number]) Assessment & Plan Assessment & Plan (1) CKD (chronic kidney disease) stage 3, GFR 30-59 ml/min: Code(s): N18.30 - Chronic kidney disease, stage 3 unspecified Category: Medical Plan: Check?labs (2) HTN (hypertension): Code(s): I10 - Essential (primary) hypertension Category: Medical Plan: Controlled Continue?current?medication (3) PAF (paroxysmal atrial fibrillation): Code(s): I48.0 - Paroxysmal atrial fibrillation Category: Medical Plan: Patient?is?in?regular?rhythm. Continue?current?medications Follow-up?with?Cardiology?as?recommended (4) Knee pain: Code(s): M25.569 - Pain in unspecified knee Category: Medical Plan: Bilateral?knee?pain,?right?worse?than?left Check?x-rays Start?physical?therapy (5) Smoker: Code(s): F17.200 - Nicotine dependence, unspecified, uncomplicated Category: Social Hx Plan: Patient?has?been?smoking?for?over?50?years She?has?mildly?distant?breath?sounds?but?wheezing/groaning?on?right?upper?lung?f ields Check?chest?x-ray Patient?would?qualify?for?LDCT?but?she?declines?this. Offered?to?help?her?with?smoking?cessation?but?declines?for?now (6) Anemia: Code(s): D64.9 - Anemia, unspecified Category: Medical Plan: Likely?secondary?to?alcohol?use Will?recheck?lab (7) Elevated TSH: Code(s): R79.89 - Other specified abnormal findings of blood chemistry Category: Medical Plan: History?of?elevated?TSH Recheck?thyroid?hormone?level (8) Chronic heart failure: Code(s): I50.9 - Heart failure, unspecified Category: Medical Plan: Check?labs Continue?Entresto Follow-up?with?Cardiology (9) Abnormal breath sounds: Code(s): R06.89 - Other abnormalities of breathing Category: Medical Plan: As?above,?check?chest?x-ray (10) Laboratory exam ordered as part of routine general medical examination: Code(s): Z00.00 - Encounter for general adult medical examination without abnormal findings Category: Medical Plan: Check labs Orders: Orders Complete Blood Count Auto Diff Today Z00.00 - Encounter for general adult medical examination without abnormal findings Lipid Panel Today Z00.00 - Encounter for general adult medical examination without abnormal findings PT Evaluation and Treatment Today M19.90 - Unspecified osteoarthritis, unspecified site, M25.569 - Pain in unspecified knee XR chest 2V Today R06.89 - Other abnormalities of breathing B Type Natriuretic Peptide Today I50.9 - Heart failure, unspecified Comprehensive [place]. Panel Fast Today Z00.00 - Encounter for general adult medical examination without abnormal findings Microalbumin, Random (w Creat) Today I10 - Essential (primary) hypertension UA and rflx microscopic Today Z00.00 - Encounter for general adult medical examination without abnormal findings Free T4 (Free Thyroxine) Today E03.9 - Hypothyroidism, unspecified Triiodothyronine T3 Total Today E03.9 - Hypothyroidism, unspecified Thyroid Stimulating Hormone Today E03.9 - Hypothyroidism, unspecified XR knee LT 3V Today M25.569 - Pain in unspecified knee XR knee RT 3V Today M25.569 - Pain in unspecified knee
[2024-03-02 10:09] VITALS: BP 130/70; PULSE 68; RESP 14; TEMP 36.2; O2SAT 98
== END 2024-03-02 11:28 | disposition home or self-care (01) ==
PROVIDERS: Visit Provider Family Medicine
DX: I12.9 Hypertensive chronic kidney disease with stage 1 through stage 4 chronic kidney disease, or unspecified chronic kidney disease (principal); N18.30 Chronic kidney disease, stage 3 unspecified; I48.0 Paroxysmal atrial fibrillation; I50.9 Heart failure, unspecified; M25.569 Pain in unspecified knee; F17.200 Nicotine dependence, unspecified, uncomplicated; D64.9 Anemia, unspecified; R79.89 Other specified abnormal findings of blood chemistry; R06.89 Other abnormalities of breathing

== ENCOUNTER → 2024-03-02 09:45 | Outpatient (BNVA) | payer SELFPAY | PROVIDERS: Visit Provider Family Medicine | DX: I13.0 Hypertensive heart and chronic kidney disease with heart failure and stage 1 through stage 4 chronic kidney disease, or unspecified chronic kidney disease (principal); N18.30 Chronic kidney disease, stage 3 unspecified; I50.9 Heart failure, unspecified; I48.0 Paroxysmal atrial fibrillation; M25.561 Pain in right knee; M25.562 Pain in left knee; D64.9 Anemia, unspecified; R79.89 Other specified abnormal findings of blood chemistry; R06.89 Other abnormalities of breathing; F17.200 Nicotine dependence, unspecified, uncomplicated | CPT/HCPCS: 96127; 99202 ==

== ENCOUNTER 2024-06-10 06:57 | Outpatient (REF) | payer MEDICARE, OTHER, SELFPAY ==
[2024-06-10 08:51] LABS: B Type Natriuretic Peptide 78 pg/mL (<100)
[2024-06-10 11:42] LABS: Appearance Urine Clear; Color Urine Yellow; Glucose Urine UA Negative (Negative); Leukocyte Esterase Urine Trace (Negative); Nitrite Urine Negative (Negative); PH 6.5 (5.0-9.0); Specific Gravity - Urine 1.015 (1.005-1.025); UMIC TRIGGER UA YES; Urine Blood Trace (Negative); Urine Ketones Negative (Negative); Urine Protein Negative (Neg-Trace)
[2024-06-10 11:44] LABS: MANUAL DIFF FLAG NO
[2024-06-10 11:48] LABS: Bacteria Urine 1+ (None Seen); Hyaline Casts Urine 0-2 /LPF (0-2); WBC Urine 0-5 /HPF (0-5)
[2024-06-10 12:03] LABS: Basophils Percent Auto 0.5 % (0-2); Eosinophils Absolute Auto 0.1 X10*3/uL (0.0-0.4); Eosinophils Percent Auto 1.7 % (0-4); Hematocrit 38.1 % (37.0-47.0); Hemoglobin 11.9 g/dl (12.0-16.0); Imm Gran Abs Auto 0.02 X10*3/uL (0.00-0.03); Imm Gran Pct Auto 0.2 % (0.0-0.4); Lymphocytes Absolute Auto 3.1 X10*3/uL (1.2-4.9); Lymphocytes Percent Auto 37.6 % (20-40); Mean Corpuscular HGB Conc 31.2 g/dl (31.0-35.0); Mean Corpuscular Hemoglobin 29.5 pg (27.0-33.0); Mean Corpuscular Volume 94.5 fL (80.0-98.0); Mean Platelet Volume 9.3 fL (9.4-12.3); Monocytes Absolute Auto 0.7 X10*3/uL (0.1-1.2); Monocytes Percent Auto 8.9 % (2-11); Neutrophils Absolute Auto 4.2 x10*3/uL (2.0-8.3); Neutrophils Percent Auto 51.1 % (45-73); Platelet Count 533 X10*3/uL (160-400); Red Blood Count 4.03 X10*6/uL (4.20-5.50); Red Cell Distribution Width 14.4 % (11.0-16.0); White Blood Count 8.1 X10*3/uL (4.8-10.8)
[2024-06-10 12:18] LABS: Alanine Aminotransferase < 6 U/L (0-31); Albumin Level 3.7 g/dL (3.5-5.0); Alkaline Phosphatase 86 U/L (39-117); Anion Gap 13 (12-20); Aspartate Amino Transferase 16 U/L (5-31); Bilirubin Total 0.4 mg/dL (0.0-1.0); Blood Urea Nitrogen 13 mg/dL (9-16); Calcium 9.3 mg/dL (8.4-10.2); Carbon Dioxide 23 mmol/L (22-29); Chloride 107 mmol/L (96-108); Cholesterol 170 mg/dL (<200); Estimated Glomerular Filt Rate > 60; Glucose Fasting 91 mg/dL (60-99); HDL Cholesterol 59 mg/dL (>40); LDL Cholesterol Calculated 91 mg/dL (<100); Potassium 3.9 mmol/L (3.3-5.1); Sodium 139 mmol/L (135-145); Total Protein 6.9 g/dL (6.5-8.0); Triglycerides 101 mg/dL (<150)
[2024-06-10 12:19] LABS: Creatinine Urine 108.26 mg/dL; Microalbum/Creatinine Ratio Ur 5.5 ug/mg cr (<30)
[2024-06-10 12:33] LABS: Free T4 (Free Thyroxine) 1.14 ng/dL (0.71-1.85); Thyroid Stimulating Hormone 1.25 uIU/mL (0.32-4.0)
[2024-06-12 04:13] LABS: Triiodothyronine T3 Total 116 ng/dL (76-181)
== END 2024-06-10 06:58 | disposition home or self-care (01) ==
LOC: HO.HMGCLDS 06:57
PROVIDERS: PCP Family Medicine; Visit Provider Family Medicine
DX: Z00.00 Encounter for general adult medical examination without abnormal findings (principal); E03.9 Hypothyroidism, unspecified; I10 Essential (primary) hypertension; I50.9 Heart failure, unspecified
CPT/HCPCS: 36415; 80053; 80061; 81001; 82043; 82570; 83880; 84439; 84443; 84480; 85025

== ENCOUNTER 2024-06-14 07:42 | Outpatient (AMB) | payer MEDICARE, OTHER, SELFPAY ==
--- NOTE | 2024-06-14 07:45 | A.OFFVIS_ITS ---
Intake Vital Signs 06/14/24 08:11 Height 5 ft 10 in Weight 207 lb 8 oz BMI 29.8 BP 124/74 Blood Pressure Location Lt brachial Position Sitting Respiration 12 Temp 97.4 F Temp Source Oral Comment unable to get o2 and pulse do to patient hands beign too cold. 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 The Medicare Annual Wellness Visit (AWV) is a yearly appointment with a health professional to identify health risks and help reduce them and to create or update a personalized prevention plan. During a Medicare AWV, health professionals should also review any current opioid prescriptions, detect any cognitive impairment, and establish or update medical and family history. 63 y/o F with heart failure with reduced ejection fraction, AFib s/p cardioversion/ablation 2021, hypertension, arthritis, iron deficiency, cigarette smoker. SurgHx: Y FHx: Dad: arrhytmia, Syncope, Sleep apnea. Mom: Arthritis. Brother: Prostate CA. Brother: Brain CA SocHx: Smokes <1ppd. EtOH: 3 dr 3 days a week. Marijuana daily. No ther drug Health Maintenance: See scanned preventative medicine assessment with personalized health plan and screening schedule. Colon: has never had one. [place] [facility] Mammo: declined at this time DEXA: declined PAP: years ago; unsure if ever had any abnormal; declined future Lung ca screening declined. Vaccines: Shingles and Pneumococcal due otherwise UTD AAA screen: Declined EKG: done today NSR Labs: 06/10/24 mild anemia, trace blood in urine otherwise wnl [place] of Care: Cards GI Visual Acuity: declined screening, wears glasses Hearing Screening: denies any concerns ACP: HCP Y, given MOLST and 5 wishes Dietary/Nutrition/Exercise Edu provided: Y During the course of the visit the patient was educated and counseled about appropriate screening and preventative services. Patient instructions were provided to the patient in written or electronic format. I have reviewed and verified the above information. - The patient is a 63-year-old female pr esenting with Medicare Annual Wellness Visit. - Her medical history includes heart luis lure with reduced ejection fraction, managed by cardiology. - The patient has atrial fibrillation, p reviously managed with cardioversion and ablation. - Current medical management includes me dications like metoprolol for essential hypertension. - She experiences mobility issues attrib utable to arthritis in her knees. - Additional history includes iron defic iency anemia and being an active smoker. - She reports episodes of blood in her s tool x 5 years but has not pursued further investigation. Due to anxiety and financial concerns. She cannot afford her entresto and eliquis. Spreading it out. Interested in community navigation support. Social - The patient is employed at a [employer] d works on her feet for five hours during shifts. - She smokes cigarettes and reports drin richie alcohol three times a week. - Mobility is a concern in her daily act ivities, and she has requested a handicap placard. This was completed by the greige goods inspector, it was printed and given to her at the office visit today. ROS: - Cardiovascular: Reports history of atr ial fibrillation. - Musculoskeletal: Reports arthritis in knees. - Hematologic: Reports iron deficiency a nemia. - General: Reports blood in urine and st ool. - Pulmonary: Denies ongoing lung issues. Exam: General: Well developed, well nourished, in no acute distress. Appears stated age. Head: Normocephalic, atraumatic. Eyes: Pupils are equal, round and reactive to light and accommodation. Conjunctivae are clear. Ears: TMs clear AU, EACS WNL Nose: Patent, without discharge. Mouth: Edentulous Neck: Supple, no adenopathy or thyromegaly. Breast: Edu on SBE Lungs: Clear to auscultation bilaterally. No rales, rhonchi or wheeze noted. Dim throughout Heart: Regular rate and rhythm. No murmurs, click, rubs or gallops are noted. Abdomen: Examined in chair as she was not able to get onto the table d/t her knees. Bowel sounds present in all quadrants. The abdomen is soft, nontender, with no masses or organomegaly noted. No hernias are noted. : Deferred. 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 Pulses: Peripheral pulses are equal and palpable bilaterally. Extremities: No clubbing, cyanosis nor edema is noted. Antalgic gait and limited ROM d/t knees. Neurologic: Gait and station normal. Cranial Nerves 2-12 intact. Motor strength grossly symmetrical and intact. No sensory loss. Balance normal. Skin: No rashes, ulcers, or lesions noted. Turgor is good. Skin color is good. Hair and nails are without abnormalities. Psych: Normal eye contact, affect and mood appropriate, and normal interactions. Patient is alert and appropriate to context. However, patient expresses fear and anxiety about health issues and potential diagnoses. Discussion I discussed various medical concerns and plans with the patient, notably focusing on her wellness visit goals. The need for colonoscopy and urology eval uation was emphasized due to reports of blood in stool & hematuria noted on labs. Vaccination updates for shingles and pneumonia were suggested, while immediate lung cancer screening was deferred. Financial issues relating to medication affordability were addressed with a referral for community navigation support. We also discussed long-term planning, including living will considerations and available healthcare proxies. Future management plans included consistent follow-up with her care team. Smoking cessation encouraged. Recommend 3 months FU hematuria, referrals with PCP. Pt states she needs accountability and check ins to stay on top of her care. Patient was informed and verbally consented to the use of an ambient scribe for clinic note documentation during this visit. An additional 40 minutes was spent addressing the problem(s) noted at todays visit. This includes time spent before the visit reviewing the chart, time spent during the visit, and time spent after the visit on documentation reviewing laboratory results, diagnostic imaging, medications, performing a medically necessary evaluation, counseling on diagnoses, care coordination, ordering appropriate tests, ordering appropriate medications, review of tests performed by other providers, reporting test results with the patient, communication with other healthcare providers. [facility] Medical History (Updated 06/14/24 @ 17:15 by Nori Dover, TRAINING MANAGER-) CHF exacerbation Heart failure with reduced ejection fraction History of cardioversion HTN (hypertension) On anticoagulant therapy On beta reji at home Screening for hypothyroidism Surgical History H/O cardiac radiofrequency ablation History of foot surgery History of hip replacement, total Family History Brother Cancer Father CAD (coronary artery disease) Social History Household Members: Children Housing: Condominium Do you presently have visiting nurse or other home services: No Alcohol intake: current Alcohol intake frequency: a few times a month Patient Tobacco Use Status: Current everyday Tobacco user Tobacco use type: Cigarette Cigarette Packs Per Day: 0.5 Cigarettes Per Day: 10 Years Smoked: 45 +/- e-Cigarette/Vaping Use: Never Used Advance Directives Date on File: 07/07/21 service: No Current occupational status: employed Cognitive needs: Yes Hearing needs: No Vision needs: Yes Questionnaire Medicare Wellness Checkup What [age] What gender do you identify with?: female During the past 4 weeks, how much have you been bothered by emotional problems such as feeling anxious, depressed, irritable, sad or downhearted, and blue?: slightly During the past 4 weeks, has your physical & emotional health limited your social activities with family, friends, neighbors, or groups?: not at all During the past 4 weeks, how much bodily pain have you generally had?: mild pain During the past 4 weeks, was someone available to help you if you needed & wanted help?: yes, as much as I wanted During the past 4 weeks, what was the hardest physical activity you could do for at least 2 minutes?: moderate Can you get to places out of walking distance without help? (For eg., can you travel alone on buses, taxis or drive your car?): Yes Can you go shopping for groceries or clothes without someone's help?: Yes Can you prepare your own meals?: Yes Can you do your housework without help?: Yes Because of any health problems, do you need the help of another person with your personal care needs such as eating, bathing, dressing or getting around the house?: No Can you handle your own money without help?: Yes During the past 4 weeks, how would you rate your health in general?: poor During the past 4 weeks how have things been going for you?: good & bad parts about equal Are you having difficulties driving your car?: no Do you always fasten your seat belt when you are in a car?: yes, usually During past 4 weeks, have you been bothered by the following: never: Falling or dizzy when standing up, Sexual problems?, Trouble eating well? and Problems using the telephone? and always: Teeth or denture problems? (d/t dental) and Tiredness or fatigue? Have you fallen 2 or more times in the past year?: No Are you afraid of falling?: Yes Are you a smoker?: yes, but I'm not ready to quit During the past 4 weeks, how many drinks of wine, beer, or other alcoholic beverages did you have?: 2-5 drinks per week Do you exercise for about 20 minutes 3 or more times a week?: yes, some of the time Have you been given information to help with the following?: no: Hazards in your house that might hurt you? and no: Keeping track of your medications? How often do you have trouble taking medicines the way you have been told to take them?: I always take medicine as prescribed How confident are you that you can control & manage most of your health problems?: very confident What is your race?: White Activity of Daily Living Bathing - sponge bath, tub bath or shower: receives no assistance (gets in/out by self, if usual bathing means Dressing - getting clothes from closets & drawers, including inner/outer garments & fasteners.: gets clothes & gets completely dressed without help Toileting - going to the 'toilet room' for urine/bowel elimination & cleaning self/arranging clothes: goes to toilet room, cleans self, arranges clothes without help Transfer: moves in & out of bed and chair without help (may use support object) Continence: controls urination/bowel movements completely by self Feeding: feeds self without help Total Score: 0 Information obtained from: patient Using telephone: independent Traveling: independent Shopping: independent Preparing meals: independent Housework: independent Taking medicine: independent Managing money: independent PHQ-9 Over the last 2 weeks, how often have you been bothered by any of the following problems? 1. Little interest or pleasure in doing things: not at all 2. Feeling down, depressed, or hopeless: not at all 3. Trouble falling or staying asleep, or sleeping too much: not at all 4. Feeling tired or having little energy: not at all 5. Poor appetite or overeating: not at all 6. Feeling bad about yourself - or that you are a failure or have let yourself or your family down: not at all 7. Trouble concentrating on things, such as reading the newspaper or watching television: not at all 8. Moving or speaking so slowly that other people could have noticed. Or the opposite - being so fidgety or restless that you have been moving around a lot more than usual: not at all 9. Thoughts that you would be better off or of hurting yourself in some way: not at all Total score: 0 Depression Screening Interpretation: Negative Depression Screening Done: Yes 16527 - PHQ-9 Billing: Yes Source: Developed by Drs. Bharathi Francis, Corrine Caldwell, Suleiman Kathleen and colleagues, with an educational javed from [employer]. Physical Exam Vital Signs: Last Vital Signs Temp 97.4 F 06/14/24 08:11 Resp 12 06/14/24 08:11 BP 124/74 06/14/24 08:11 BMI result Body Mass Index 29.8 Office Procedures EKG [id number], Complete Vision Screening 01881 - Vision Screening Assessment & Plan Assessment & Plan (1) Encounter for initial annual wellness visit (AWV) in Medicare patient: Onset Date: ~06/2024 Code(s): Z00.00 - Encounter for general adult medical examination without abnormal findings (2) Heart failure with reduced ejection fraction: Code(s): I50.20 - Unspecified systolic (congestive) heart failure (3) HTN (hypertension): Code(s): I10 - Essential (primary) hypertension Qualifiers: Hypertension type: primary hypertension Qualified Code(s): I10 - Essential (primary) hypertension (4) CKD (chronic kidney disease) stage 3, GFR 30-59 ml/min: Code(s): N18.30 - Chronic kidney disease, stage 3 unspecified Qualifiers: Chronic kidney disease stage 3 subtype: stage 3a (GFR 45-59) Qualified Code(s): N18.31 - Chronic kidney disease, stage 3a (5) Cigarette smoker: Code(s): F17.210 - Nicotine dependence, cigarettes, uncomplicated (6) Anemia: Code(s): D64.9 - Anemia, unspecified Qualifiers: Anemia type: unspecified type Qualified Code(s): D64.9 - Anemia, unspecified (7) Hematuria: Code(s): R31.9 - Hematuria, unspecified Qualifiers: Hematuria type: asymptomatic microscopic Qualified Code(s): R31.21 - Asymptomatic microscopic hematuria (8) Mammogram declined: Code(s): Z53.20 - Procedure and treatment not carried out because of patient's decision for unspecified reasons (9) Lung cancer screening declined by patient: Code(s): Z53.20 - Procedure and treatment not carried out because of patient's decision for unspecified reasons (10) Secondary hypercoagulable state: Comment: d/t afib on eliquis Code(s): D68.69 - Other thrombophilia (11) PAF (paroxysmal atrial fibrillation): Comment: w secondary hypercoaguable state on eliquis Code(s): I48.0 - Paroxysmal atrial fibrillation Plan: . (12) Encounter for screening involving social determinants of health (SDoH): Code(s): Z13.9 - Encounter for screening, unspecified Plan . Orders: Referrals Nurse Navigator Referral F17.210 - Nicotine dependence, cigarettes, uncomplicated, Z13.9 - Encounter for screening, unspecified Gastroenterology Referral Z12.11 - Encounter for screening for malignant neoplasm of colon Urology Referral F17.210 - Nicotine dependence, cigarettes, uncomplicated, R31.9 - Hematuria, unspecified Patient Instructions: - Schedule colonoscopy and follow Urology's guidance on urine and related concerns. - Obtain a shingles and pneumonia vaccine once organized through pharmacy. - Continue prescribed medication regime and assess financial assistance options. - Consider long-term mobility aid purchases if deemed necessary. - Review smoking cessation resources and consider enrollment in programs. Health screenings for women You should visit your health care provider from time to time, even if you are healthy. The purpose of these visits is to: Screen for medical issues Assess your risk for future medical problems Encourage a healthy lifestyle Update vaccinations and other preventive care services Help you get to know your provider in case of an illness Information Even if you feel fine, you should still see your provider for regular checkups. These visits can help you avoid problems in the future. For example, the only way to find out if you have high blood pressure is to have it checked regularly. High blood sugar and high cholesterol levels also may not have any symptoms in the early stages. A simple blood test can check for these conditions. There are specific times when you should see your provider or receive specific health screenings. The [place] Preventive Services Task Force publishes a list of recommended screenings. Below are screening guidelines for women ages 18 to 39. BLOOD PRESSURE SCREENING Your blood pressure should be checked at least once every 3 to 5 years if: Your blood pressure is in the normal range (top number less than 120 mm Hg and bottom number less than 80 mm Hg) You don't have risk factors for high blood pressure Ask your provider if you need your blood pressure checked more often if: The top number is 120 to 129 mm Hg or the bottom number is 70 to 79 mm Hg You have diabetes, heart disease, kidney problems, are overweight, or have certain other health conditions You have a first-degree relative with high blood pressure You are Black You had high blood pressure during a If the top number is 130 mm Hg or greater or the bottom number is 80 mm Hg or greater, this is considered stage 1 hypertension. Schedule an appointment with your provider to learn how you can reduce your blood pressure. Watch for blood pressure screenings in your area. Ask your provider if you can stop in to have your blood pressure checked. BREAST CANCER SCREENING Experts do not agree about the benefits of breast self-exams in finding breast cancer or saving lives. Talk to your provider about what is best for you. A screening mammogram is not recommended for most women under age 40. Your provider may discuss and recommend mammograms, MRI scans, or ultrasounds if you have an increased risk for breast cancer, such as: A mother or sister who had breast cancer at a young age (most often starting screening earlier than the age the close relative was diagnosed) You carry a high-risk genetic marker CERVICAL CANCER SCREENING Cervical cancer screening should start at age 21 years unless your provider advises otherwise. After the first test: Women ages 21 through 29 should have a Pap test every 3 years. Exoprts do not agree on whether HPV testing is recommended for this age group. Women ages 30 through 65 should be screened with either a Pap test every 3 years or the HPV test every 5 years or both tests every 5 years (called cotesting ). Women who have been treated for precancer (cervical dysplasia) should continue to have Pap tests for 20 years after treatment or until age 65, whichever is longer. If you have had your uterus and cervix removed (total hysterectomy), and you have not been diagnosed with cervical cancer or precancer (high grade cervical neoplasia), you do not need cervical cancer screening. CHOLESTEROL SCREENING Cholesterol screening should begin at: Age 45 for women with no known risk factors for coronary heart disease Age 20 for women with known risk factors for coronary heart disease Repeat cholesterol screening should take place: Every 5 years for women with normal cholesterol levels More often if changes occur in lifestyle (including weight gain and diet) More often if you have diabetes, heart disease, kidney problems, or certain other conditions DIABETES SCREENING You should be screened for diabetes starting at age 35 and then repeated every 3 years if you have no risk factors for diabetes. Screening may need to start earlier and be repeated more often if you have other risk factors for diabetes, such as: You have a first degree relative with diabetes. You are overweight or have obesity. You have high blood pressure, prediabetes, or a history of heart disease. Screening for diabetes should be done if you are planning to become and you are overweight and have other risk factors such as high blood pressure. DENTAL EXAM Go to the dentist once or twice every year for an exam and cleaning. Your dentist will evaluate if you need more frequent visits. EYE EXAM Have an eye exam every 5 to 10 years before age 40. If you have vision problems, have an eye exam every 2 years or more often if recommended by your provider. You should have an eye exam that includes an examination of your retina (back of your eye) at least every year if you have diabetes. IMMUNIZATIONS Commonly needed vaccines include: Flu shot: get one every year. COVID-19 vaccine: ask your provider what is best for you. Tetanus-diphtheria and acellular pertussis (Tdap) vaccine: have one at or after age 19 as one of your tetanus-diphtheria vaccines if you did not receive it as an adolescent. Tetanus-diphtheria: have a booster (or Tdap) every 10 years. Varicella vaccine: receive 2 doses if you never had chickenpox or the varicella vaccine. Hepatitis B vaccine: receive 2, 3, or 4 doses, depending on your exact circumstances. Measles, mumps, and rubella (MMR) vaccine: receive 1 to 2 doses if you are not already immune to MMR. Your provider can tell you if you are immune. Ask your provider about the human papillomavirus (HPV) vaccine if: You have not received the HPV vaccine in the past You have not completed the full vaccine series (you should catch up on this shot) Ask your provider if you should receive other immunizations if you have certain health problems that increase your risk for some diseases such as pneumonia. INFECTIOUS DISEASE SCREENING Women who are sexually active should be screened for chlamydia and gonorrhea up until age 25. Women 25 years and older should be screened for chlamydia and gonorrhea if at high risk. Screening for hepatitis C: All adults ages 18 to 79 should get a one-time test for hepatitis C. people should be screened at every . Screening for human immunodeficiency virus (HIV): All people ages 15 to 65 should get a one-time test for HIV. Depending on your lifestyle and medical history, you may also need to be screened for infections such as syphilis and HIV, as well as other infections. PHYSICAL EXAM All adults should visit their provider from time to time, even if they are healthy. The purpose of these visits is to: Screen for disease Assess your risk of future medical problems Encourage a healthy lifestyle Update your vaccinations and other preventive care services Maintain a relationship with a provider in case of an illness Your height, weight, and BMI should be checked at every exam. During your exam, your provider may ask you about: Depression and anxiety Diet and exercise Alcohol and tobacco use Safety issues, such as using seat belts, smoke detectors, and intimate partner violence Your medicines and risk for interactions SKIN SELF-EXAM Your provider may check your skin for signs of skin cancer, especially if you're at high risk, such as if you: Have had skin cancer before Have close relatives with skin cancer Have a weakened immune system OTHER SCREENING Talk with your provider about colon cancer screening if you have a strong family history of colon cancer or polyps, or if you have had inflammatory bowel disease or polyps yourself. Routine bone density screening of women under 40 is not recommended. Quality Reporting (2019) Adult ([facility] 138/04/29/68) Smoking risk assessment performed?: Yes Patient Tobacco Use Status: Current everyday Tobacco user Tobacco cessation counseling provided: Yes Items discussed: Nicotine replacement, QuitWorks and Other Pharmacotherapy not ordered: No Depression screening performed: Yes Screen Results: Yes Negative screen Systolic BP not done?: No Diastolic BP not done?: No BMI screening not done: No Sexual Activity Screening ([facility] 153) Sexually active?: No Immunizations ([facility] 147, 117) Annual Influenza Vaccine: Yes Measles Antibody Test: No Mumps Antibody Test: No Rubella Antibody Test: No Varicella Antibody Test: No Anti Hepatitis A IgG Antigen test: No Anti Hepatitis B Virus Surface Ab test: No Fall Risk Screening ([facility] 139) Last assessed Fall Risk: 06/14/24 Fall risk assessment: No Falls in past year Dementia Assessment ([facility] [facility] 149) Cognitive assessment recorded: Yes Assessment of cognition with standardized tool: Yes Depression/Bipolar (159/160/161/177) PHQ-9: Total score: 0 Ophthalmol:Cataracts Visual Acuity (133) Visual acuity exam performed: Yes (see results) Coding Level of Care Code Medicare IPPE (G0402) Est Pt Level 5 (64092) Diagnoses Encounter for initial annual wellness visit (AWV) in Medicare patient Z00.00 Heart failure with reduced ejection fraction I50.20 Primary hypertension I10 Hypertension type: primary hypertension Stage 3a chronic kidney disease N18.31 Chronic kidney disease stage 3 subtype: stage 3a (GFR 45-59) Cigarette smoker F17.210 Anemia, unspecified type D64.9 Anemia type: unspecified type Asymptomatic microscopic hematuria R31.21 Hematuria type: asymptomatic microscopic Mammogram declined Z53.20 Lung cancer screening declined by patient Z53.20 Secondary hypercoagulable state D68.69 PAF (paroxysmal atrial fibrillation) I48.0 Encounter for screening involving social determinants of health (SDoH) Z13.9 CPT Codes Advance Care Planning - Time spent: 1-15 minutes, not on file ([id number]) EKG - CPT: 00728-Aclzuxxokrrhcurag, Complete ([id number]) Vision Screening - Vision Screenin - Vision Screening ([id number]) Additional Codes PHQ-9 - 92187 - PHQ-9 Billing: Yes ([id number]) Advance Care Planning Advance Care Planning discussion: Exists, not on file Date of discussion: 06/14/24 Who was present: self Forms completed: Health Care Proxy, MOLST and Living will Time spent: 1-15 minutes, not on file Actual minutes spent: 5
[2024-06-14 08:11] VITALS: BP 124/74; RESP 12; TEMP 36.3; BMI 29.8
== END 2024-06-14 09:00 | disposition home or self-care (01) ==
LOC: HO.HMCFM 07:43
PROVIDERS: PCP Family Medicine; Visit Provider Nurse Practitioner Family
DX: Z00.00 Encounter for general adult medical examination without abnormal findings (principal); I13.0 Hypertensive heart and chronic kidney disease with heart failure and stage 1 through stage 4 chronic kidney disease, or unspecified chronic kidney disease; I50.20 Unspecified systolic (congestive) heart failure; N18.31 Chronic kidney disease, stage 3a; I48.0 Paroxysmal atrial fibrillation; D68.69 Other thrombophilia; F17.210 Nicotine dependence, cigarettes, uncomplicated; D64.9 Anemia, unspecified; R31.21 Asymptomatic microscopic hematuria; Z53.20 Procedure and treatment not carried out because of patient's decision for unspecified reasons

== ENCOUNTER → 2024-06-14 07:42 | Outpatient (BNVA) | payer MEDICARE, OTHER, SELFPAY | PROVIDERS: PCP Family Medicine; Visit Provider Nurse Practitioner Family | DX: Z00.01 Encounter for general adult medical examination with abnormal findings (principal); I13.0 Hypertensive heart and chronic kidney disease with heart failure and stage 1 through stage 4 chronic kidney disease, or unspecified chronic kidney disease; I50.9 Heart failure, unspecified; N18.31 Chronic kidney disease, stage 3a; I48.91 Unspecified atrial fibrillation; F17.210 Nicotine dependence, cigarettes, uncomplicated; I50.20 Unspecified systolic (congestive) heart failure; D64.9 Anemia, unspecified; R31.21 Asymptomatic microscopic hematuria; D68.69 Other thrombophilia; I48.0 Paroxysmal atrial fibrillation; R31.9 Hematuria, unspecified | CPT/HCPCS: 99212; G0402 ==

== ENCOUNTER 2024-08-02 09:48 | Outpatient (AMB) | payer MEDICARE, OTHER, SELFPAY ==
--- NOTE | 2024-08-02 09:53 | MHC.OFFVIS ---
Vital Signs 08/02/24 09:57 Height 5 ft 10 in Weight 206 lb 5.643 oz BMI 29.6 BP 110/62 Blood Pressure Location Lt brachial Position Sitting Pulse 72 Pulse Source Pulse Oximeter Intake Visit Reasons: 4m follow up Intake Note: 4 mth f/up Administrative Appeals Tribunal Member Required: No Accompanied by: Self / Same As Patient Allergies No Known Allergies Allergy (Verified 06/14/24 08:37) Medication List - Last Reconciled 08/02/24 by Travis Plummer MD acetaminophen (Tylenol) 650 mg PO Q6H PRN apixaban (Eliquis) 5 mg PO BID diclofenac sodium 1% (Arthritis Pain (diclofenac)) 2 grams topical QID PRN furosemide 40 mg PO DAILY metoprolol succinate ER 25 mg PO BID sacubitril-valsartan 97-103 mg 1 tab PO BID HPI Comments Details: Pleasant 63-year-old female with background 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 She underwent cardioversion and was started on amiodarone. With guideline directed medical therapy and abstinence from alcohol her ejection fraction has improved back to normal. She underwent ablation by Dr. Nielsen on 11/20/2021. She has been doing well. She has no chest pain shortness of breath. Taking medications regularly. Doing well. She was completely abstinent of alcohol in the past but on follow-up today she is saying that she has been drinking up to 2 days a month. She drinks whiskey. She also continues to smoke half a pack per day. Overall clinically stable and has no significant symptoms. 06/09/2023: She returns for follow-up. She has no shortness of breath but has been experiencing some palpitations up to 2 times a week lasting for few minutes. She has been drinking whiskey 2 times a week. She smokes half pack per day and has not cut back significantly on smoking. Taking medications regularly. 12/13/23: She is here for follow-up. She has been drinking 2 times a week 3 drinks of whiskey. Recent echocardiography has shown normal LVEF. No atrial fibrillation on Holter monitoring. Blood pressure is elevated today. She said she ran out of medications due to insurance issues 1 month ago but has been taking medications regularly for 1 month now. 08/02/24: She is here for follow-up. Unfortunately she has been drinking up to 2 times a week. She is drinking 4 shots of whiskey. She is quite anxious appearing and appears to be withdrawing. She is saying she has been good with the medicines. Otherwise denying any symptoms. She is saying she has been struggling to afford Eliquis and Entresto. We discussed and we decided to change Entresto to losartan. [facility] Medical History Screening for hypothyroidism On anticoagulant therapy On beta reji at home History of cardioversion Heart failure with reduced ejection fraction CHF exacerbation HTN (hypertension) Surgical History H/O cardiac radiofrequency ablation History of hip replacement, total History of foot surgery Family History Brother Cancer Father CAD (coronary artery disease) Social History Household Members: Children [facility] Do you presently have visiting nurse or other home services: No Alcohol intake: current Alcohol intake frequency: a few times a month Patient Tobacco Use Status: Current everyday Tobacco user Tobacco use type: Cigarette Cigarette Packs Per Day: 0.5 Cigarettes Per Day: 10 Years Smoked: 45 +/- e-Cigarette/Vaping Use: Never Used Advance Directives Date on File: 07/07/21 service: No Current occupational status: employed Cognitive needs: Yes Hearing needs: No Vision needs: Yes Review of Systems Const Denies chills, Denies fatigue, Denies fever(s), Denies frequent falls, Denies weakness, Denies weight gain and Denies weight loss ENT Denies dizziness Card Denies chest pain, Denies leg edema, Denies lightheadedness, Denies palpitations, Denies dyspnea and Denies dyspnea on exertion Resp Denies cough, Denies dyspnea and Denies dyspnea on exertion GI Denies hematochezia Musc Denies abnormal gait, Denies muscle weakness, Denies numbness, Denies radiating pain into limb and Denies tingling Neuro Denies abnormal gait, Denies dizziness, Denies frequent falls, Denies numbness, Denies tingling and Denies weakness Endo Denies fatigue and Denies palpitations Physical Exam Vital Signs: Last Vital Signs Pulse 72 08/02/24 09:57 BP 110/62 08/02/24 09:57 BMI result Body Mass Index 29.6 GENERAL APPEARANCE: Anxious appearing. Sweaty palms. NECK: no carotid bruit, no jugular venous distention. SKIN: no suspicious lesions, warm and dry. HEART: Systolic murmur aortic area with preserved 2nd heart sound, regular rate and rhythm. LUNGS: clear to auscultation bilaterally. ABDOMEN: soft, nontender. EXTREMITIES: no edema. PERIPHERAL PULSES: equal. NEUROLOGIC: No gross deficits, AAO X 3 Assessment & Plan Assessment & Plan (1) PAF (paroxysmal atrial fibrillation): Comment: w secondary hypercoaguable state on eliquis Code(s): I48.0 - Paroxysmal atrial fibrillation Category: Medical (2) HTN (hypertension): Code(s): I10 - Essential (primary) hypertension Category: Medical Qualifiers: Hypertension type: primary hypertension Qualified Code(s): I10 - Essential (primary) hypertension Plan Pleasant 63-year-old lady who is here for follow-up. She had cardiomyopathy secondary to alcohol use and atrial fibrillation. She was cardioverted and underwent ablation. She has been in sinus rhythm since then. Unfortunately she continues to drink at this stage. We discussed again about complete abstinence from alcohol. I have advised her to start with changing whiskey to light beer and eventually stopping the beer also. She is unable to afford Entresto and apixaban easily. We have decided to change the Entresto to losartan. About apixaban I gave her options of Coumadin but she currently thinks she would continue apixaban. Hopefully this become generic at some stage. She will see us back in few months. Thank you for allowing me to participate in the care of your patient. Please feel free to contact me if you have any questions. Medications: New losartan 100 mg PO DAILY 90 tabs 3RF Discontinued sacubitril-valsartan 97-103 mg Discontinued Reason: Doctor's Order 1 tab PO BID 120 tabs 3RF Coding Level of Care Code Est Pt Level 4 (56583) Diagnoses PAF (paroxysmal atrial fibrillation) I48.0 Primary hypertension I10 Hypertension type: primary hypertension
[2024-08-02 09:57] VITALS: BP 110/62; PULSE 72; BMI 29.6
== END 2024-08-02 10:43 | disposition home or self-care (01) ==
LOC: HO.HCS 09:50
PROVIDERS: Visit Provider Internal Medicine Cardiovascular Disease
DX: I48.0 Paroxysmal atrial fibrillation (principal); I10 Essential (primary) hypertension
CPT/HCPCS: 99214

== ENCOUNTER → 2024-08-02 09:48 | Outpatient (BNVA) | payer MEDICARE, OTHER, SELFPAY | PROVIDERS: Visit Provider Internal Medicine Cardiovascular Disease | DX: I48.0 Paroxysmal atrial fibrillation (principal); I10 Essential (primary) hypertension | CPT/HCPCS: 99212 ==

== ENCOUNTER 2024-08-15 07:46 | Outpatient (AMB) | payer MEDICARE, OTHER, SELFPAY ==
--- NOTE | 2024-08-15 07:58 | MHC.OFFVIS ---
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 She has a past medical history of AFib status post cardioversion 07/27 on anticoagulation, heart failure with reduced ejection fracture, CHF, and hypertension. She presents to the office today as a new patient for microscopic hematuria in the setting of nicotine dependence. In discussion with the patient today she reports having followed up with her PCP at which time UA noted microscopic hematuria and recommendations were made for urology referral for further assessment evaluation. When asked she does report a 50 year history of smoking. She reports smoking anywhere between half a pack to 1 pack per day. She otherwise denies any bothersome urinary issues. She denies urinary urgency, urinary frequency, incontinence, nocturia, gross/visible hematuria, dysuria, foul smelling urine, changes to urinary stream, flank pain, fever, and or chills. In office urinalysis results reviewed with the patient today. Microscopic hematuria noted. She is happy with her current voiding parameters. I discussed reasons for blood in the urine may include but are not limited to kidney stones, cancer in the urinary tract, kidney stone disease or inflammatory conditions of the urinary tract. I have discussed workup to include cystoscopy evaluation. All questions were answered. She otherwise offers no other issues or concerns at this time. History of Present Illness The patient is a 63-year-old female presenting with microscopic hematuria. She became aware of potential blood in her urine after test results were communicated to her primary care physician, though she has not observed any gross hematuria herself. A repeat urine analysis today confirmed the presence of microscopic hematuria. Her history includes 50 years of tobacco use, with her current intake being less than a pack daily, which warrants a more intensive urological evaluation. The patient has not experienced any other relevant urinary symptoms or interventions related to today's findings. Plan Further evaluation of the microscopic hematuria is advised due to the patient?s significant history of tobacco use. proposed diagnostic measures include a CT scan of the abdomen and pelvis to evaluate the kidneys, ureters, and bladder, along with a direct visualization cystoscopy. These will facilitate the detection of any urinary tract abnormalities not visible on imaging alone. Consent and insurance authorization will be pursued, and the patient has been informed of the need for and benefits of these diagnostic procedures. Tobacco cessation has also been recommended as it supports overall health improvement. Patient was informed and verbally consented to the use of an ambient scribe for clinic note documentation during this visit. Discussion Notes During our discussion, I explained to the patient the rationale for further evaluation of her microscopic hematuria, given her smoking history. I outlined the necessity of performing a CT scan of the abdomen and pelvis due to the limitations of cystoscopy in visualizing the entire upper urinary tract. Cystoscopy will provide a direct visualization of the bladder. The patient was agreeable to the outlined plan and expressed understanding of the need for insurance authorization. Additionally, I advised her to consider tobacco cessation, a recommendation based on public health guidelines. [facility] Medical History Screening for hypothyroidism On anticoagulant therapy On beta reji at home History of cardioversion Heart failure with reduced ejection fraction CHF exacerbation HTN (hypertension) Surgical History H/O cardiac radiofrequency ablation History of hip replacement, total History of foot surgery Family History Brother Cancer Father CAD (coronary artery disease) Social History Household Members: Children Housing: Condominium Do you presently have visiting nurse or other home services: No Alcohol intake: current Alcohol intake frequency: a few times a month Patient Tobacco Use Status: Current everyday Tobacco user Tobacco use type: Cigarette Cigarette Packs Per Day: 0.5 Cigarettes Per Day: 10 Years Smoked: 45 +/- e-Cigarette/Vaping Use: Never Used Advance Directives Date on File: 07/07/21 service: No Current occupational status: employed Cognitive needs: Yes Hearing needs: No Vision needs: Yes Review of Systems Const All systems reviewed & are unremarkable except as noted in HPI and below Physical Exam Const General: cooperative, healthy appearing, comfortable, no acute distress, well developed, alert and awake Orientation/consciousness: patient oriented x3 Limitations: no limitations HEENT Head: Yes normal to inspection, Yes normocephalic and Yes atraumatic Ears: hearing grossly normal bilaterally Eyes General: appearance normal, both eyes and all related structures Neck Neck: Yes normal visual inspection and Yes trachea midline Chest Chest palpation & inspection: normal inspection of the chest Resp Effort & Inspection: normal respiratory effort and able to speak in complete sentences Cardio Rate: regular rate GI Inspection: Yes normal to inspection General: Yes no CVA tenderness Back/Spine/Pelvis Back: no CVA tenderness Skin General skin exam: no rashes or lesions noted Neuro General: patient oriented x3 Extrem General: Yes normal to inspection Psych Appearance: grossly normal and well kempt Mental Status: mental status grossly normal Speech and movement: Normal speech and movement present and Clear speech present Affect: normal affect Attitude: cooperative Thought process: Normal thought process present Thought content: Normal thought content present Insight: Fair insight present (Psych) Judgement: Fair judgement present (Psych) Results AMB Urinalysis, Automated UA Leukoctes 70 Elio/uL Last Edit by Sandra Brandon [facility] on 08/15/24 08:08 UA Nitrite Last Edit by Sandra Brandon [facility] on 08/15/24 08:08 UA Urobilinogen 0.2 mg/dL Last Edit by Sandra Brandon [facility] on 08/15/24 08:08 UA Protein 0 mg/dL Last Edit by Sandra Brandon [facility] on 08/15/24 08:08 UA pH 6.0 Last Edit by Sandra Brandon [facility] on 08/15/24 08:08 UA Blood 10 Anthony/uL Last Edit by Sandra Brandon [facility] on 08/15/24 08:08 UA Specific [place] 1.010 Last Edit by Sandra Brandon [facility] on 08/15/24 08:08 UA Ketone Last Edit by Sandra Brandon [facility] on 08/15/24 08:08 UA Bilirubin 0 mg/dL Last Edit by Sandra Brandon [facility] on 08/15/24 08:08 UA Glucose 0 mg/dL Last Edit by YVES Crooks on 08/15/24 08:08 Results Reviewed Results Reviewed: Laboratory Last Values Urine pH (Auto) 6.0 08/15/24 08:00 Specific [place] (Auto) 1.010 08/15/24 08:00 Urine Protein (Auto) 0 mg/dL 08/15/24 08:00 Glucose (UA)(Auto) 0 mg/dL 08/15/24 08:00 Urine Blood (Auto) 10 Anthony/uL 08/15/24 08:00 Urine Bilirubin (Auto) 0 mg/dL 08/15/24 08:00 Urine Urobilinogen (Auto) 0.2 mg/dL 08/15/24 08:00 Leukocyte Esterase (Auto) 70 Elio/uL 08/15/24 08:00 Assessment & Plan Assessment & Plan (1) Microscopic hematuria: Code(s): R31.29 - Other microscopic hematuria Category: Medical (2) Nicotine dependence: Code(s): F17.200 - Nicotine dependence, unspecified, uncomplicated Category: Medical Plan In office urinalysis results reviewed with the patient today; as noted above; will send for urine cytology. We discussed potential causes of microscopic hematuria as well as further workup to include CT urogram and cystoscopy. All questions were answered. She otherwise denies any bothersome urinary issues. She reports be happy with current voiding parameters. We discussed the importance of limiting/quitting nicotine dependence for overall health and well-being. Will obtain CT urogram for further assessment evaluation. BUN and creatinine ordered for imaging. Follow-up next available in office cystoscopy with imaging and labs to be completed prior; or sooner with any issues, concerns, and or questions. Orders: Orders Urine Cytology Today R31.21 - Asymptomatic microscopic hematuria CT urogram Today R31.0 - Gross hematuria Blood Urea Nitrogen Today F17.200 - Nicotine dependence, unspecified, uncomplicated, R31.29 - Other microscopic hematuria Creatinine Today F17.200 - Nicotine dependence, unspecified, uncomplicated, R31.29 - Other microscopic hematuria AMB Urinalysis Automated Today Z13.9 - Encounter for screening, unspecified Patient Instructions: The patient had an opportunity to ask questions regarding the treatment plan. All questions were answered. Physical exam, labs, and imaging were discussed and reviewed in detail. As well as risks, benefits, and discussion of treatment choices. No major barriers to understanding were identified. The patient expressed understanding and agreement with the above treatment plan. The patient was made aware they should contact our office by phone for worsening of their current condition, the appearance of new symptoms, or with any questions or concerns. Compliance is encouraged with any medications and follow up testing that is ordered. It is a privilege to be allowed the opportunity to participate in? your urological care.? Again, if you have any questions or concerns If you have any questions or concerns please do not hesitate to contact me. The office is [phone]. This note is constructed using voice recognition software. While every effort has been made to ensure accuracy magnetic grinder operator errors may have been included. Yours sincerely, ARTHUR Hernandez Coding Level of Care Code New Pt Level 3 (72164) Diagnoses Microscopic hematuria R31.29 Nicotine dependence F17.200
== END 2024-08-15 08:18 | disposition home or self-care (01) ==
LOC: HO.HUSH 07:48
PROVIDERS: PCP Family Medicine; Visit Provider Nurse Practitioner Family
DX: R31.29 Other microscopic hematuria (principal); F17.200 Nicotine dependence, unspecified, uncomplicated; Z13.9 Encounter for screening, unspecified
CPT/HCPCS: 99203

== ENCOUNTER → 2024-08-15 07:46 | Outpatient (BNVA) | payer MEDICARE, OTHER, SELFPAY | PROVIDERS: PCP Family Medicine; Visit Provider Nurse Practitioner Family | DX: R31.29 Other microscopic hematuria (principal); F17.210 Nicotine dependence, cigarettes, uncomplicated | CPT/HCPCS: 81003; 99202 ==

== ENCOUNTER 2024-09-22 07:14 | Outpatient (REF) | payer MEDICARE, OTHER, SELFPAY ==
--- OUTSIDE RECORDS SUMMARY | 2024-09-22 07:16 | XMS_ITS | Clinical Summary ---
Author Organization [facility] Address [address] [place] [phone] Phone Care Team Providers Care Straddle Bug Operator Name Role Phone Unavailable Primary Care Provider Unavailabl e Social History Tobacco Use Types Packs/Day Years Used Date Smoking Tobacco: Never Assessed Education Answer Date Recorded Are you interested in more education? Not on anaya e 07/03/2022 Are you concerned about learning? Not on file 07/03/2022 No 07/03/2022 No 07/03/2022 Digital Access Answer Date Recorded No 08/01/2022 No 08/01/2022 No 08/01/2022 Reliable internet access at home? Not on file 08/01/2022 Device with a working camera? Not on file Comments Unknown Sex and Gender Information Value Date Recorded Sex Assigned at Not on file Legal Sex Female 10:35 PM EDT Gender Identity Not on file Sexual Orientation Not on file Plan of Treatment Health Maintenance Due Date Last Done Comments Adult Td,Tdap Booster 1958 LIPID PANEL 1958 DEPRESSION SCREENING 1970 SMOKING Hx and SMOKELESS TOB ACCO SCREENING 08/22/1971 HEPATITIS C SCREENING 1976 MAMMOGRAM 1998 COLOGUARD 08/22/2003 COLONOSCOPY 08/22/2003 COLORECTAL CANCER SCREENING 08/22/2003 FIT TEST 08/22/2003 FOBT 08/22/2003 SIGMOIDOSCOPY 08/22/2003 VIRTUAL COLONOSCOPY 08/22/2003 PNEUMOCOCCAL VACCINES (50+ y ears) (1 of 1 - PCV) 2008 ZOSTER VACCINES (1 of 2) 2008 OSTEOPOROSIS SCREENING INITI AL (ONE-TIME) 08/22/2023 COVID-19 VACCINE ( - 2023-2 5 season) 2023 RSV VACCINE (1 - 1-dose 75+ series) 2033 HEPATITIS A VACCINES Aged Out No long er eligible based on patient's age to complete this topic HIB VACCINES Aged Out No longer eligi ble based on patient's age to complete this topic MENINGOCOCCAL VACCINES (ACWY) Aged Out No longer eligible based on patient's age to complete this topic MENINGOCOCCAL VACCINES (B) Aged Out N o longer eligible based on patient's age to complete this topic Medical Devices Not on file Additional Source Comments The information contained in this document represents components of the legal health record. It is not the complete legal health record.[facility]
[2024-09-22 11:02] LABS: Blood Urea Nitrogen 12 mg/dL (9-16); Estimated Glomerular Filt Rate > 60
== END 2024-09-22 07:15 | disposition home or self-care (01) ==
LOC: HO.HMGCLDS 07:14
PROVIDERS: PCP Family Medicine; Visit Provider Nurse Practitioner Family
DX: R31.21 Asymptomatic microscopic hematuria (principal); R31.29 Other microscopic hematuria; F17.200 Nicotine dependence, unspecified, uncomplicated
CPT/HCPCS: 36415; 82565; 84520

== ENCOUNTER 2024-12-06 09:12 | Outpatient (AMB) | payer MEDICARE, OTHER, SELFPAY ==
[2024-12-06 09:23] VITALS: BP 150/82; PULSE 93; BMI 29.0
--- NOTE | 2024-12-06 09:23 | A.OFFVIS_ITS ---
Vital Signs 12/06/24 09:23 Height 5 ft 10 in Weight 202 lb 6.15 oz BMI 29.0 BP 150/82 H Blood Pressure Location Lt brachial Position Sitting Pulse 93 Pulse Source Pulse Oximeter Intake Visit Reasons: 4 Month Follow Up Camera Technician Required: No Accompanied by: Self / Same As Patient Allergies No Known Allergies Allergy (Verified 12/06/24 09:26) Medication List - Last Reconciled 12/06/24 by Travis Plummer MD apixaban (Eliquis) 5 mg PO BID furosemide 40 mg PO DAILY losartan 100 mg PO DAILY metoprolol succinate ER 25 mg PO BID HPI Comments Details: Pleasant 64-year-old female with background 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 She underwent cardioversion and was started on amiodarone. With guideline directed medical therapy and abstinence from alcohol her ejection fraction has improved back to normal. She underwent ablation by Dr. Nielsen on 11/20/2021. She has been doing well. She has no chest pain shortness of breath. Taking medications regularly. Doing well. She was completely abstinent of alcohol in the past but on follow-up today she is saying that she has been drinking up to 2 days a month. She drinks whiskey. She also continues to smoke half a pack per day. Overall clinically stable and has no significant symptoms. 06/09/2023: She returns for follow-up. She has no shortness of breath but has been experiencing some palpitations up to 2 times a week lasting for few minutes. She has been drinking whiskey 2 times a week. She smokes half pack per day and has not cut back significantly on smoking. Taking medications regularly. 12/13/23: She is here for follow-up. She has been drinking 2 times a week 3 drinks of whiskey. Recent echocardiography has shown normal LVEF. No atrial fibrillation on Holter monitoring. Blood pressure is elevated today. She said she ran out of medications due to insurance issues 1 month ago but has been taking medications regularly for 1 month now. 08/02/24: She is here for follow-up. Unfortunately she has been drinking up to 2 times a week. She is drinking 4 shots of whiskey. She is quite anxious appearing and appears to be withdrawing. She is saying she has been good with the medicines. Otherwise denying any symptoms. She is saying she has been struggling to afford Eliquis and Entresto. We discussed and we decided to change Entresto to losartan. 12/06/2024: Here for follow-up. He continues to drink. She has stopped drinking whiskey and moved to beer and has been drinking 3 times a week. She has elevated blood pressure. No other complaints. She is saying she is working because of stress at work. We discussed that eventually she has to retire and maybe if work is the reason for her alcohol use then she should consider changing her job. [facility] Medical History Screening for hypothyroidism On anticoagulant therapy On beta reji at home History of cardioversion Heart failure with reduced ejection fraction CHF exacerbation HTN (hypertension) Surgical History H/O cardiac radiofrequency ablation History of hip replacement, total History of foot surgery Family History Brother Cancer Father CAD (coronary artery disease) Social History Household Members: Children Housing: [facility] Do you presently have visiting nurse or other home services: No Alcohol intake: current Alcohol intake frequency: a few times a month Patient Tobacco Use Status: Current everyday Tobacco user Tobacco use type: Cigarette Cigarette Packs Per Day: 0.5 Cigarettes Per Day: 10 Years Smoked: 45 +/- e-Cigarette/Vaping Use: Never Used Advance Directives Date on File: 07/07/21 service: No Current occupational status: employed Cognitive needs: Yes Hearing needs: No Vision needs: Yes Review of Systems Const Denies daytime sleepiness, Denies difficulty sleeping, Denies snoring, Denies stops breathing during sleep and Denies weakness Card Denies chest pain, Denies rapid heart rate, Denies irregular heart rhythm, Denies claudication, Denies leg edema, Denies lightheadedness, Reports palpitations, Denies dyspnea, Denies dyspnea on exertion, Denies orthopnea, Denies paroxysmal nocturnal dyspnea and Denies slow heart rate Resp Denies cough, Denies dyspnea, Denies dyspnea on exertion and Denies snoring GI Reports no additional complaints, Denies hematochezia, Denies change in stool character and Denies dyspepsia Musc Denies abnormal gait, Denies muscle weakness and Denies numbness Neuro Denies abnormal gait, Denies numbness and Denies weakness Endo Reports palpitations Physical Exam Vital Signs: Last Vital Signs Pulse 93 12/06/24 09:23 BP 150/82 H 12/06/24 09:23 BMI result Body Mass Index 29.0 GENERAL APPEARANCE: Anxious appearing. Sweaty palms. NECK: no carotid bruit, no jugular venous distention. SKIN: no suspicious lesions, warm and dry. HEART: Systolic murmur aortic area with preserved 2nd heart sound, regular rate and rhythm. LUNGS: clear to auscultation bilaterally. ABDOMEN: soft, nontender. EXTREMITIES: no edema. PERIPHERAL PULSES: equal. NEUROLOGIC: No gross deficits, AAO X 3 Assessment & Plan Assessment & Plan (1) PAF (paroxysmal atrial fibrillation): Comment: w secondary hypercoaguable state on eliquis Code(s): I48.0 - Paroxysmal atrial fibrillation Category: Medical (2) HTN (hypertension): Code(s): I10 - Essential (primary) hypertension Category: Medical Qualifiers: Hypertension type: primary hypertension Qualified Code(s): I10 - Essential (primary) hypertension Plan Pleasant 64-year-old lady who is here for follow-up. She had cardiomyopathy secondary to alcohol use and atrial fibrillation. She was cardioverted and underwent ablation. She has been in sinus rhythm since then. Unfortunately she continues to drink at this stage. We discussed again about complete abstinence from alcohol. She has change from whiskey to light beer which is definitely improvement but my concern is that if she has any stressful event she may go back toward hard liquor. She is currently on losartan, metoprolol succinate 25 mg twice a day and Eliquis. She is on Lasix 40 mg daily. Blood pressure is elevated I am adding spironolactone 25 mg daily. We will repeat blood workup and also check an echocardiogram because it has been more than a year since we last assessed her ejection fraction and she continues to drink. She will see us back in 3 months. Thank you for allowing me to participate in the care of your patient. Please feel free to contact me if you have any questions. Orders: Orders Complete Blood Count no Diff Today N18.31 - Chronic kidney disease, stage 3a CA echo transthorac w con Today I48.0 - Paroxysmal atrial fibrillation Basic Metabolic Panel Today N18.31 - Chronic kidney disease, stage 3a Medications: New spironolactone 25 mg PO DAILY 60 tabs 3RF Coding Level of Care Code Est Pt Level 4 (72397) Diagnoses PAF (paroxysmal atrial fibrillation) I48.0 Primary hypertension I10 Hypertension type: primary hypertension
--- OUTSIDE RECORDS SUMMARY | 2024-12-06 09:59 | XMS_ITS | Clinical Summary ---
Author Organization 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
== END 2024-12-06 09:53 | disposition home or self-care (01) ==
LOC: HO.HCS 09:13
PROVIDERS: PCP Family Medicine; Visit Provider Internal Medicine Cardiovascular Disease
DX: I48.0 Paroxysmal atrial fibrillation (principal); I10 Essential (primary) hypertension
CPT/HCPCS: 99214

== ENCOUNTER → 2024-12-06 09:12 | Outpatient (BNVA) | payer MEDICARE, OTHER, SELFPAY | PROVIDERS: PCP Family Medicine; Visit Provider Internal Medicine Cardiovascular Disease | DX: N18.31 Chronic kidney disease, stage 3a (principal); I48.0 Paroxysmal atrial fibrillation; I10 Essential (primary) hypertension | CPT/HCPCS: 99212 ==